=== PATIENT | male | born 1945 | race Caucasian/White ===

== ENCOUNTER 2018-11-02 10:05 | Outpatient (CLI) | payer MEDICARE, SELFPAY ==
[2018-11-02 10:32] LABS: Abs Immature Grans 0.03 k/cumm (0.0-0.09); Absolute Basophil Count 0.04 k/cumm (0.0-0.2); Absolute Eosinophil Count 0.16 k/cumm (0.0-0.7); Absolute Lymphocyte Count 1.71 k/cumm (1.2-3.4); Absolute Monocyte Count 0.75 k/cumm (0.11-0.7); Absolute Neutrophil Count 4.98 k/cumm (1.2-6.7); Basophils % 0.5; Eosinophils % 2.1; HCT 40.8 % (40.0-50.0); HGB 13.3 g/dL (13.5-17.5); Immature Grans % 0.4; Lymphocytes % 22.3; Mean Corp. HGB Concentration 32.6 g/dL (32.0-36.0); Mean Corpuscular Volume 98.1 fL (80-95); Mean Platelet Volume 11.6 fL (8.0-11.0); Monocytes % 9.8; Neutrophils % 64.9; Platelet Count 208 x1000/uL (130-400); RBC 4.16 m/cumm (4.50-6.00); RBC Distribution Width 14.6 % (11.8-14.1); White Blood Cell Count 7.67 k/cumm (4.4-10.8)
[2018-11-02 10:37] LABS: Hemoglobin A1C 6.5 % (4.5-6.2)
[2018-11-02 10:40] LABS: ALT 21 U/L (16-63); AST 16 U/L (15-37); Albumin 2.9 g/dL (3.4-5.0); Alkaline Phosphatase 58 U/L (46-116); BUN 24 mg/dL (7-18); Bilirubin, Total 0.3 mg/dL (0.2-1.0); CREATININE 0.95 mg/dL (0.70-1.30); Calcium 8.5 mg/dL (8.5-10.1); Chloride 105 mmol/L (98-107); Glucose 98 mg/dL (70-100); Potassium 4.4 mmol/L (3.5-5.1); Sodium 142 mmol/L (136-145); Total Protein 6.7 g/dL (6.4-8.2)
== END 2018-11-02 10:25 ==
PROVIDERS: PCP Family Medicine; Visit Provider Nurse Practitioner Adult Health
DX: E11.621 Type 2 diabetes mellitus with foot ulcer (principal); E78.5 Hyperlipidemia, unspecified; F33.1 Major depressive disorder, recurrent, moderate; F41.9 Anxiety disorder, unspecified; I10 Essential (primary) hypertension
CPT/HCPCS: 36415; 80053; 83036; 85025

== ENCOUNTER 2018-11-20 15:18 | Emergency (ER) | payer MEDICARE, SELFPAY ==
[2018-11-20] VITALS (52 sets, daily range): BP systolic 91–126; BP diastolic 29–51; PULSE 60–101; RESP 16–39; TEMP 37.7; O2SAT 68–100
--- NOTE | 2018-11-20 15:32 | DI.RAD_ITS ---
EXAM: XR CHEST 2V PA LATERAL INDICATION: cough, r/o pneumonia. COMPARISON: PORTABLE CHEST ONE VIEW from 10/01/2015 TECHNIQUE: 2D digital imaging was performed. FINDINGS: AP and lateral views of the chest were obtained. Heart size and pulmonary vasculature are stable and within normal limits. Chronic interstitial changes are present in the lungs. No focal consolidatin g infiltrate is present. No effusions or pneumothoraces are identified. The lateral spine is diffic ult to visualize due to patient positioning. Old left healed rib fractures are present. IMPRESSION: No acute pulmonary process.
--- NOTE | 2018-11-20 15:33 | ED.GENADUL_ITS ---
Discharge Plan Disposition Patient Disposition: HOME Condition: Stable Discharge Details Chief Complaint: RespSymp Clinical Impression: Infection of toe, Cough, Hypoxia Primary Care Provider: Eileen Webster ED Provider: Vanna Pineda Home Meds and New Rx's Prescriptions: New doxycycline hyclate 100 mg tablet 100 mg PO BID 7 Days Qty: 14 RF: 0 Continued clopidogrel [Plavix] 75 MG tablet 75 mg PO DAILY RF: 0 dicyclomine 10 MG capsule 20 mg PO QID RF: 0 levetiracetam [Keppra] 500 MG tablet 500 mg PO BID RF: 0 gabapentin 400 MG capsule 800 mg PO DAILY PRNRF: 0 finasteride 5 MG tablet 5 mg PO DAILY RF: 0 nicotine (polacrilex) [Nicorette] 4 MG gum 2 mg PO QID RF: 0 metformin [Glucophage] 1,000 MG tablet 500 mg PO BID RF: 0 metoprolol tartrate 25 MG tablet 25 mg PO BID RF: 0 sennosides [senna] 8.6 MG tablet 1 tab PO BID RF: 0 tamsulosin 0.4 MG capsule 0.8 mg PO .QHS RF: 0 prazosin 2 MG capsule 2 mg PO .QHS RF: 0 acetaminophen 325 mg Tablet 650 mg PO Q4H PRN PRNRF: 0 atorvastatin 10 mg Tablet 10 mg PO DAILY RF: 0 meloxicam 7.5 mg Tablet 7.5 mg PO DAILY RF: 0 gabapentin 800 mg Tablet 1,600 mg PO QHS RF: 0 gabapentin 800 mg Tablet 800 mg PO BID RF: 0 allopurinol 300 mg Tablet 300 mg PO DAILY RF: 0 polyethylene glycol 3350 [Miralax] 17 gram/dose Powder 17 g PO DAILY RF: 0 amoxicillin-pot clavulanate 500-125 mg Tablet 1 tab PO BID RF: 0 Discharge Instructions Instructions: Cellulitis (ED), Hypoxia (ED), Acute Cough (ED) Additional Instructions: Take the Augmentin until finished. Take the doxycycline until finished. Continue nasal cannula oxygen at 2 L to keep oxygen saturation above 92%. Continue to use your albuterol neb treatments as needed and directed for shortness of breath, cough or wheezing. Follow-up with your primary care doctor at [facility] on Thursday for reevaluation. Return to the emergency department with any worsening or new concerning symptoms. Discharge Data Discharge Physician: Vanna Pineda Medical Decision Making 73-year-old male with history of anxiety, depression, CVA, diabetes, gout, hypertension, hyperlipidemia who presents with cough and shortness of breath since last night after he believes that he aspirated his Lasix pill and then regurgitated and was able to swallow it appropriately. Denies any known fever. States he has been able to eat and drink normally. O2 sat 80s per [facility]. High 80s here on arrival on room air, increased to mid 90s on 2 L O2. He is afebrile although low-grade temp of 99.8. Normal heart rate, no signs of respiratory distress. Diminished breath sounds at bases bilaterally. He is at the rehab due to a recent stay at [facility] for bilateral toe infections wh ich appears to be healing well and treated with Augmentin. Differential diagnosis includes aspiration pneumonia, pneumonia, ACS, acute CHF or COPD. EKG notes a rate of 98, sinus with T wave inversion in 1, aVL, V2 which appears new compared to previous EKG. There is no acute ST elevation or depression. Will give DuoNeb, check screening labs, chest x-ray and reassess. Labs reviewed and note a white blood cell count of 21, lactate of 3, troponin negative. Magnesium 1.4. BNP 680. Chest x-ray negative. Influenza negative. Patient denies any acute complaints and feels good to go back to [facility]. His elevated white blood cell count and lactate could be due to his chronic toe infection or a possible developing aspiration pneumonia. Patient is already on Augmentin as well as albuterol nebs as needed. We will add doxycycline. 1 dose of doxycycline given here as well as prescription. An order sheet was sent to [facility] for continued nasal cannula oxygen to keep O2 sats above 92%, albuterol nebs as needed and to finish both antibiotics. His blood pressure was mildly hypotensive at times, BP 124/46 before discharge. Case discussed with Shayna nursing supervisor sample over rehab who was notified of plan for home and to repeat CBC and BMP tomorrow. Advised to return with any worsening or new concerning symptoms. Medical Records Medical records reviewed: Yes I reviewed the patient's medical records. Imaging Data Radiologic Study: Radiologist's impression: XR Chest, 2 Views Exam date and time: 11/20/2018 4:25 PM Clinical history: 73 years old, male; Other: Cough, R/O pneumonia TECHNIQUE: Imaging protocol: XR of the chest Views: 2 views. COMPARISON: CR PORTABLE CHEST ONE VIEW 10/01/2015 2:01 PM FINDINGS: Lungs: Unremarkable. No consolidation. Pleural space: Unremarkable. No pleural effusion. No pneumothorax. Heart/Mediastinum: Unremarkable. No cardiomegaly. Vasculature: Atherosclerosis. Bones/joints: Degenerative changes in the spine. IMPRESSION: Atherosclerosis. Degenerative changes in the spine. Lab Data Lab results reviewed: Yes I reviewed the patient's lab results. Labs: Laboratory Tests Range/Units 11/20/18 11/20/18 11/20/18 15:40 15:40 15:40 WBC (4.4-10.8) k/cumm 21.00 H RBC (4.50-6.00) m/cumm 4.14 L Hgb (13.5-17.5) g/dL 13.4 L Hct (40.0-50.0) % 40.2 MCV (80-95) fL 97.1 H MCH (27.0-33.0) pg 32.4 MCHC (32.0-36.0) g/dL 33.3 RDW (11.8-14.1) % 14.4 H Plt Count (130-400) x1000/uL 217 MPV (8.0-11.0) fL 11.1 H Immature Gran % 0.3 Neutrophils % 85.6 Lymphocytes % 7.1 Monocytes % 6.8 Eosinophils % 0.1 Basophils % 0.1 Absolute Neutrophils (1.2-6.7) k/cumm 17.98 H Absolute Lymphocytes (1.2-3.4) k/cumm 1.49 Absolute Monocytes (0.11-0.7) k/cumm 1.43 H Absolute Eosinophils (0.0-0.7) k/cumm 0.02 Absolute Basophils (0.0-0.2) k/cumm 0.02 Sodium (136-145) mmol/L 143 Potassium (3.5-5.1) mmol/L 4.0 Chloride (98-107) mmol/L 104 Carbon Dioxide (21.0-32.0) mmol/L 29.8 Anion Gap (3-11) mmol/L 9.2 BUN (7-18) mg/dL 22 H Creatinine (0.70-1.30) mg/dL 1.07 Estimated GFR/1.73 m2 (mL/min/1.73m2) >= 60.00 Glucose (70-100) mg/dL 175 H Lactate (0.6-1.4) mmol/L 3.0 H* Calcium (8.5-10.1) mg/dL 8.4 L Magnesium (1.8-2.4) mg/dL 1.4 L Total Bilirubin (0.2-1.0) mg/dL 0.4 AST (15-37) U/L 14 L ALT (16-63) U/L 26 Alkaline Phosphatase (46-116) U/L 70 Troponin I (0.00-0.06) ng/mL < 0.05 NT-Pro-B Natriuret Pep ( - 299) pg/mL Total Protein (6.4-8.2) g/dL 7.3 Albumin (3.4-5.0) g/dL 2.8 L Range/Units 11/20/18 15:40 WBC (4.4-10.8) k/cumm RBC (4.50-6.00) m/cumm Hgb (13.5-17.5) g/dL Hct (40.0-50.0) % MCV (80-95) fL MCH (27.0-33.0) pg MCHC (32.0-36.0) g/dL RDW (11.8-14.1) % Plt Count (130-400) x1000/uL MPV (8.0-11.0) fL Immature Gran % Neutrophils % Lymphocytes % Monocytes % Eosinophils % Basophils % Absolute Neutrophils (1.2-6.7) k/cumm Absolute Lymphocytes (1.2-3.4) k/cumm Absolute Monocytes (0.11-0.7) k/cumm Absolute Eosinophils (0.0-0.7) k/cumm Absolute Basophils (0.0-0.2) k/cumm Sodium (136-145) mmol/L Potassium (3.5-5.1) mmol/L Chloride (98-107) mmol/L Carbon Dioxide (21.0-32.0) mmol/L Anion Gap (3-11) mmol/L BUN (7-18) mg/dL Creatinine (0.70-1.30) mg/dL Estimated GFR/1.73 m2 (mL/min/1.73m2) Glucose (70-100) mg/dL Lactate (0.6-1.4) mmol/L Calcium (8.5-10.1) mg/dL Magnesium (1.8-2.4) mg/dL Total Bilirubin (0.2-1.0) mg/dL AST (15-37) U/L ALT (16-63) U/L Alkaline Phosphatase (46-116) U/L Troponin I (0.00-0.06) ng/mL NT-Pro-B Natriuret Pep ( - 299) pg/mL 680 H Total Protein (6.4-8.2) g/dL Albumin (3.4-5.0) g/dL ECG Data Attestation: I personally reviewed and interpreted this ECG (s) as follows: Interpretation: Rate of 98, sinus, T wave inversion in 1, aVL, V2. No acute ST elevation or depression. NV 106. QTc 472. QRS 106. HPI General Mode of arrival: EMS . Date/Time Provider Initiated Documentation: 11/20/18 15:31 . Limitations to Documentation: no limitations . Information obtained by: patient . HPI Narrative: Patient is a 73-year-old male with a history of anxiety, depression, diabetes, hypertension, hyperlipidemia, CVA who [facility] for cough and shortness of breath since last night. Patient states I think my lungs are filled with fluid . Patient states his symptoms started after he took a large cup of his medication last night and feels that he aspirated his Lasix pill. He states he was able to regurgitate this pill back up and then swallowed appropriately. He states he has been eating and drinking normally. He denies any fever, chest pain, abdominal pain. Patient is at the rehab for the past week after a recent admission to [facility] for toe infections and debridement for which she is taking Augmentin. Related Data Home Medications Medication Instructions Recorded Confirmed clopidogrel [Plavix] 75 mg PO DAILY 10/01/15 11/20/18 dicyclomine 20 mg PO QID 10/01/15 11/20/18 finasteride 5 mg PO DAILY 10/01/15 11/20/18 gabapentin 800 mg PO DAILY PRN 10/01/15 11/20/18 levetiracetam [Keppra] 500 mg PO BID 10/01/15 11/20/18 metformin [Glucophage] 500 mg PO BID 10/01/15 11/20/18 metoprolol tartrate 25 mg PO BID 10/01/15 11/20/18 nicotine (polacrilex) [Nicorette] 2 mg PO QID 10/01/15 11/20/18 prazosin 2 mg PO .QHS 10/01/15 11/20/18 sennosides [senna] 1 tab PO BID 10/01/15 11/20/18 tamsulosin 0.8 mg PO .QHS 10/01/15 11/20/18 acetaminophen 650 mg PO Q4H PRN PRN 11/20/18 11/20/18 allopurinol 300 mg PO DAILY 11/20/18 11/20/18 amoxicillin-pot clavulanate 1 tab PO BID 11/20/18 11/20/18 atorvastatin 10 mg PO DAILY 11/20/18 11/20/18 doxycycline hyclate 100 mg PO BID 7 Days #14 tab 11/20/18 gabapentin 1,600 mg PO QHS 11/20/18 11/20/18 gabapentin 800 mg PO BID 11/20/18 11/20/18 meloxicam 7.5 mg PO DAILY 11/20/18 11/20/18 polyethylene glycol 3350 [Miralax] 17 g PO DAILY 11/20/18 11/20/18 Previous Rx's Medication Instructions Recorded doxycycline hyclate 100 mg PO BID 7 Days #14 tab 11/20/18 Allergies Allergy/AdvReac Type Severity Reaction Status Date / Time No Known Allergies Allergy Unverified 11/20/18 15:22 General Stated Complaint: RespSymp KM: 3 Review of Systems Review of Systems ROS Unobtainable: All systems reviewed & are unremarkable except as noted in HPI and below Constitutional Constitutional: Reports as per HPI, Denies chills and Denies fever(s) Eyes Eyes: Denies blurry vision ENT Ears, Nose, Mouth, and Throat: Denies dizziness, Denies sore throat and Denies throat swelling Cardiovascular Cardiovascular: Denies chest pain and Reports dyspnea Respiratory Respiratory: Reports cough and Reports dyspnea Gastrointestinal Gastrointestinal: Denies abdominal pain, Denies diarrhea and Denies vomiting Genitourinary Genitourinary: Denies hematuria and Denies dysuria Musculoskeletal Musculoskeletal: Denies back pain and Denies numbness Integumentary/Breasts Skin/Breast: Denies lesions and Denies rash Neurologic Neurologic: Denies dizziness, Denies focal weakness and Denies numbness Allergic/Immunologic Allergic/Immunologic: Denies throat swelling ON LICENSE OF [facility] Medical History Alcohol abuse (Chronic) Anxiety (Chronic) CVA (cerebral vascular accident) (Chronic) Depression (Chronic) Diabetes (Chronic) Gout (Chronic) HTN (hypertension) (Chronic) Hx of hyperlipidemia (Acute) Seizure (Acute) Surgical History History of foot surgery (Acute) Social History Smoking/Tobacco Use Status: Former Tobacco Use Alcohol Intake: former Substance use type: does not use Do you feel safe at home: Yes Do you feel safe in your relationship?: Yes Exam Const General: cooperative, healthy appearing and no acute distress HENMT Head: normal to inspection Face and sinus: normal facial exam Mouth: mucous membranes dry Eyes General: appearance normal, both eyes and all related structures EOM: EOM intact bilaterally Neck Neck: normal visual inspection and No submandibular swelling Lymphatic: no lymphadenopathy noted Chest Chest: normal inspection of the chest and no tenderness Resp Effort & Inspection: normal respiratory effort and able to speak in complete sentences Auscultation: diminished lung sounds bilaterally in the lower lung suarez Cardio Rate: regular rate Rhythm: regular rhythm GI Inspection: normal to inspection Palpation: soft, not firm, not rigid and nontender Auscultation: normal bowel sounds Skin General skin exam: no rashes or lesions noted Neuro General: alert, awake and oriented x3 Cognition: normal cognition Speech: speech normal Motor: muscle tone normal throughout Sensory Exam: no sensory deficits noted Extrem General: full ROM, normal capillary refill and no edema Other: Bilateral great toes with ulcerations at tips. Left great toe with healing ulceration. Right great toe with healing pustule with orange colored topical medication in place. Psych Appearance: grossly normal Mental Status: mental status grossly normal Speech and Movement: speech and movement normal Affect: normal affect Course Vital Signs Vital signs: Vital Signs Temperature 99.8 F H 11/20/18 15:16 Pulse 95 H 11/20/18 15:16 Respiratory Rate 24 11/20/18 15:16 Blood Pressure 124/46 L 11/20/18 15:16 Pulse Oximetry 97 11/20/18 15:16 Temperature 99.8 F H 11/20/18 15:16 Temperature Source Oral 11/20/18 15:16 Pulse 95 H 11/20/18 15:16 Respiratory Rate 11/20/18 15:16 Blood Pressure 124/46 L 11/20/18 15:16 Blood Pressure Position Sitting 11/20/18 15:16 Pulse Oximetry 97 11/20/18 15:16 Oxygen Delivery Method Aerosol Mask 11/20/18 15:16 Pain Level 8 11/20/18 15:16 Comment 11/20/18 15:16
[2018-11-20 15:48] LABS: Abs Immature Grans 0.07 k/cumm (0.0-0.09); Absolute Monocyte Count 1.43 k/cumm (0.11-0.7); Basophils % 0.1; Eosinophils % 0.1; HCT 40.2 % (40.0-50.0); HGB 13.4 g/dL (13.5-17.5); Immature Grans % 0.3; Lymphocytes % 7.1; Mean Corp. HGB Concentration 33.3 g/dL (32.0-36.0); Mean Corpuscular Hemoglobin 32.4 pg (27.0-33.0); Mean Corpuscular Volume 97.1 fL (80-95); Mean Platelet Volume 11.1 fL (8.0-11.0); Monocytes % 6.8; Neutrophils % 85.6; Platelet Count 217 x1000/uL (130-400); RBC 4.14 m/cumm (4.50-6.00); RBC Distribution Width 14.4 % (11.8-14.1)
[2018-11-20 15:49] LABS: Absolute Basophil Count 0.02 k/cumm (0.0-0.2); Absolute Eosinophil Count 0.02 k/cumm (0.0-0.7); Absolute Lymphocyte Count 1.49 k/cumm (1.2-3.4); Absolute Neutrophil Count 17.98 k/cumm (1.2-6.7)
[2018-11-20 16:11] LABS: ALT 26 U/L (16-63); AST 14 U/L (15-37); Albumin 2.8 g/dL (3.4-5.0); Alkaline Phosphatase 70 U/L (46-116); Anion Gap 9.2 mmol/L (3-11); BUN 22 mg/dL (7-18); Bilirubin, Total 0.4 mg/dL (0.2-1.0); CO2 29.8 mmol/L (21.0-32.0); CREATININE 1.07 mg/dL (0.70-1.30); Calcium 8.4 mg/dL (8.5-10.1); Chloride 104 mmol/L (98-107); Glucose 175 mg/dL (70-100); Magnesium 1.4 mg/dL (1.8-2.4); Sodium 143 mmol/L (136-145); Total Protein 7.3 g/dL (6.4-8.2); Troponin I < 0.05 ng/mL (0.00-0.06)
[2018-11-20] MEDS: Albuterol 2.5 MG/3 ML INH SOLN VIAL UPD (16:44)
[2018-11-20] MEDS: Normal Saline 500 ML IV (16:45)
[2018-11-20 16:46] LABS: NT-proBNP 680 pg/mL
--- NOTE | 2018-11-20 16:46 | DI.VRAD_ITS ---
PROCEDURE INFORMATION: Exam: XR Chest, 2 Views Exam date and time: 11/20/2018 4:25 PM Clinical history: 73 years old, male; Other: Cough, R/O pneumonia TECHNIQUE: Imaging protocol: XR of the chest Views: 2 views. COMPARISON: CR PORTABLE CHEST ONE VIEW 10/01/2015 2:01 PM FINDINGS: Lungs: Unremarkable. No consolidation. Pleural space: Unremarkable. No pleural effusion. No pneumothorax. Heart/Mediastinum: Unremarkable. No cardiomegaly. Vasculature: Atherosclerosis. Bones/joints: Degenerative changes in the spine. IMPRESSION: Atherosclerosis. Degenerative changes in the spine. Dictated and Authenticated by: Fatou Miranda MD. Ordering:STELLA Prabhakar MD
--- NOTE | 2018-11-20 16:58 | NUR.NOTE ---
iv fluids infusing pt on playground monitor Nursing Note:
[2018-11-20] MEDS: MAGNESIUM SULFATE 1 GM/100 ML BAG IVPB (17:46)
[2018-11-20] MEDS: Doxycycline Hyclate 100 MG CAP PO (19:45)
== END 2018-11-20 20:48 | disposition home or self-care (01) ==
PROVIDERS: Emergency Provider Physician Assistant; PCP Family Medicine
DX: R09.02 Hypoxemia (principal); R05 Cough; L03.031 Cellulitis of right toe; L03.032 Cellulitis of left toe; E11.9 Type 2 diabetes mellitus without complications; I10 Essential (primary) hypertension; Z79.84 Long term (current) use of oral hypoglycemic drugs
CPT/HCPCS: 36415; 80053; 87040; 87449; 93005; 96361; 96365; 96366; 99285; 71046; 83605; 83735; 83880; 84484; 85025; 93010; J3475; J7613

== ENCOUNTER 2018-11-21 10:50 | Outpatient (REF) | payer MEDICARE, SELFPAY ==
[2018-11-21 11:09] LABS: Abs Immature Grans 0.05 k/cumm (0.0-0.09); Absolute Basophil Count 0.03 k/cumm (0.0-0.2); Absolute Eosinophil Count 0.24 k/cumm (0.0-0.7); Absolute Lymphocyte Count 1.45 k/cumm (1.2-3.4); Basophils % 0.2; Eosinophils % 1.8; HCT 37.2 % (40.0-50.0); HGB 12.3 g/dL (13.5-17.5); Immature Grans % 0.4; Lymphocytes % 10.7; Mean Corp. HGB Concentration 33.1 g/dL (32.0-36.0); Mean Corpuscular Hemoglobin 32.7 pg (27.0-33.0); Mean Corpuscular Volume 98.9 fL (80-95); Mean Platelet Volume 10.6 fL (8.0-11.0); Monocytes % 9.2; Neutrophils % 77.7; Platelet Count 192 x1000/uL (130-400); RBC 3.76 m/cumm (4.50-6.00); RBC Distribution Width 14.7 % (11.8-14.1); White Blood Cell Count 13.54 k/cumm (4.4-10.8)
[2018-11-21 11:10] LABS: Absolute Monocyte Count 1.25 k/cumm (0.11-0.7); Absolute Neutrophil Count 10.52 k/cumm (1.2-6.7)
[2018-11-21 11:11] LABS: Anion Gap 5.6 mmol/L (3-11); BUN 17 mg/dL (7-18); CO2 29.4 mmol/L (21.0-32.0); CREATININE 0.88 mg/dL (0.70-1.30); Calcium 8.2 mg/dL (8.5-10.1); Chloride 107 mmol/L (98-107); Glucose 141 mg/dL (70-100); Potassium 4.2 mmol/L (3.5-5.1); Sodium 142 mmol/L (136-145)
== END 2018-11-21 11:10 ==
LOC: LBN 10:50
PROVIDERS: PCP Family Medicine; Visit Provider Family Medicine
DX: D72.9 Disorder of white blood cells, unspecified (principal); I10 Essential (primary) hypertension
CPT/HCPCS: 80048; 85025

== ENCOUNTER 2018-11-25 12:02 | Outpatient (REF) | payer MEDICARE, SELFPAY ==
[2018-11-25 12:21] LABS: Abs Immature Grans 0.02 k/cumm (0.0-0.09); Absolute Basophil Count 0.03 k/cumm (0.0-0.2); Absolute Eosinophil Count 0.16 k/cumm (0.0-0.7); Absolute Lymphocyte Count 1.53 k/cumm (1.2-3.4); Absolute Monocyte Count 0.58 k/cumm (0.11-0.7); Absolute Neutrophil Count 4.45 k/cumm (1.2-6.7); Basophils % 0.4; Eosinophils % 2.4; HGB 13.4 g/dL (13.5-17.5); Immature Grans % 0.3; Lymphocytes % 22.6; Mean Corp. HGB Concentration 32.7 g/dL (32.0-36.0); Mean Corpuscular Hemoglobin 32.1 pg (27.0-33.0); Mean Corpuscular Volume 98.1 fL (80-95); Mean Platelet Volume 11.3 fL (8.0-11.0); Monocytes % 8.6; Neutrophils % 65.7; Platelet Count 178 x1000/uL (130-400); RBC 4.18 m/cumm (4.50-6.00); RBC Distribution Width 14.5 % (11.8-14.1); White Blood Cell Count 6.77 k/cumm (4.4-10.8)
[2018-11-25 12:29] LABS: Anion Gap 7.9 mmol/L (3-11); BUN 22 mg/dL (7-18); CO2 30.1 mmol/L (21.0-32.0); CREATININE 0.79 mg/dL (0.70-1.30); Calcium 8.6 mg/dL (8.5-10.1); Chloride 105 mmol/L (98-107); Glucose 182 mg/dL (70-100); Potassium 4.1 mmol/L (3.5-5.1); Sodium 143 mmol/L (136-145)
== END 2018-11-25 12:22 ==
LOC: LBN 12:02
PROVIDERS: PCP Family Medicine; Visit Provider Nurse Practitioner Adult Health
DX: D64.9 Anemia, unspecified (principal); D72.9 Disorder of white blood cells, unspecified
CPT/HCPCS: 80048; 85025

== ENCOUNTER 2018-12-09 04:36 | Emergency (ER) | payer OTHER, MEDICARE, SELFPAY ==
[2018-12-09] VITALS (61 sets, daily range): BP systolic 86–135; BP diastolic 28–72; PULSE 71–114; RESP 18–33; TEMP 37.3–39.8; O2SAT 81–94
[2018-12-09] MEDS: Lidocaine 2% Jelly 6 ML SYR (04:58)
[2018-12-09] MEDS: Lactated Ringers 2,000 ML 1000 ML IV (05:07)
--- NOTE | 2018-12-09 05:11 | ED.GENADUL_ITS ---
Discharge Plan Disposition Patient Disposition: OTHER Condition: Stable Discharge Details Chief Complaint: Fever Clinical Impression: Sepsis Primary Care Provider: Eileen Webster ED Provider: Luis Bullard Home Meds and New Rx's Prescriptions: No Action clopidogrel [Plavix] 75 MG tablet 75 mg PO DAILY RF: 0 dicyclomine 10 MG capsule 20 mg PO QID RF: 0 levetiracetam [Keppra] 500 MG tablet 500 mg PO BID RF: 0 gabapentin 400 MG capsule 800 mg PO DAILY PRNRF: 0 finasteride 5 MG tablet 5 mg PO DAILY RF: 0 nicotine (polacrilex) [Nicorette] 4 MG gum 2 mg PO QID RF: 0 metformin [Glucophage] 1,000 MG tablet 500 mg PO BID RF: 0 metoprolol tartrate 25 MG tablet 25 mg PO BID RF: 0 sennosides [senna] 8.6 MG tablet 1 tab PO BID RF: 0 tamsulosin 0.4 MG capsule 0.8 mg PO .QHS RF: 0 prazosin 2 MG capsule 2 mg PO .QHS RF: 0 acetaminophen 325 mg Tablet 650 mg PO Q4H PRN PRNRF: 0 atorvastatin 10 mg Tablet 10 mg PO DAILY RF: 0 meloxicam 7.5 mg Tablet 7.5 mg PO DAILY RF: 0 gabapentin 800 mg Tablet 1,600 mg PO QHS RF: 0 gabapentin 800 mg Tablet 800 mg PO BID RF: 0 allopurinol 300 mg Tablet 300 mg PO DAILY RF: 0 polyethylene glycol 3350 [Miralax] 17 gram/dose Powder 17 g PO DAILY RF: 0 amoxicillin-pot clavulanate 500-125 mg Tablet 1 tab PO BID RF: 0 Discharge Data Discharge Date/Time-TO BE ENTERED AT DEPARTURE: 12/09/18 11:30 Medical Decision Making <Lucio Alcaraz MD - Last Filed: 12/09/18 19:59> Patient presenting with fever, tachycardia, hypotension in the setting of 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 He received Tylenol prior to transfer. He has a cough and some shortness of breath but has history of COPD. States his breathing is better on the oxygen. His abdomen is benign other than distended bladder. Toes did not look swollen or red. No obvious cellulitis. No ulcerations. No complaint of headache and has normal mental status. IV established and fluid resuscitation started. Laboratory studies including lactic acid and blood cultures were ordered. Temperature-sensing Lopez catheter placed to monitor both temperature and urine output. Flu swab and chest x-ray ordered. 07:00 - Heart rate has come down and blood pressure has gone up with 2 L of fluid. We will continue LR at 150 an hour. Laboratory studies show his lactic acid to be 3.6. His white count is normal. Renal function and liver function normal. Electrolytes okay other than low magnesium. Troponin negative. Urine negative. Chest x-ray per preliminary radiology read without obvious consolidation. Flu swab negative. At this point I do not have a definitive source for his fever and hypotension. I find it hard to believe that it is related to his chronic toe infections. He has dry gangrene at the tips but he does not have significant swelling, erythema, pain. No definite consolidation on x-ray but definitely has junky cough and saturations are little low. Will give DuoNeb. I am going to cover with vancomycin and Levaquin as he has been on Augmentin chronically. We will need to replete magnesium. Currently no beds here at this hospital. [facility] is a [facility] Medical Records Medical records reviewed: Yes I reviewed the patient's medical records. Lab Data Lab results reviewed: Yes I reviewed the patient's lab results. ECG Data Attestation: I personally reviewed and interpreted this ECG (s) as follows: Prior ECG tracings: available for review Interpretation: Sinus tachycardia at 107. Normal axis and intervals. Nonspecific ST changes in the lateral leads was a little depression but no significant difference compared to old. <Luis Bullard MD - Last Filed: 12/09/18 10:32> [facility] and we have no beds here, [facility] states [facility]. Spoke with Salina Gomez at [facility] who requested repeat lactate. the 2nd lactate was drawn off line magnesium was running and was over 7 and I felt this was likely erroneous so I had lab do a blood draw within 10 minutes of this and it was less than 2. Spoke again with Salina Gomez who accepts in transfer. Pt reiterates dnr/dni and would not want any procedures such as central lines nor would he want pressors at the present time HPI <Lucio Alcaraz MD - Last Filed: 12/09/18 19:59> General Mode of arrival: EMS . Date/Time Provider Initiated Documentation: 12/09/18 05:06 . Limitations to Documentation: no limitations . Information obtained by: patient, EMS, RN notes reviewed and old records reviewed . HPI Narrative: [facility] evaluation of fever and chills. Patient is on Augmentin for toe ulcer. He does have increased pain there. He developed increasing cough, shortness of breath and fever. He denies chest pain or abdominal pain. He has had some nausea and vomiting overnight. He denies dysuria or hematuria. He denies headache, runny nose, sore throat. 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 Related Data Home Medications Medication Instructions Recorded Confirmed clopidogrel [Plavix] 75 mg PO DAILY 10/01/15 12/09/18 dicyclomine 20 mg PO QID 10/01/15 12/09/18 finasteride 5 mg PO DAILY 10/01/15 12/09/18 gabapentin 800 mg PO DAILY PRN 10/01/15 12/09/18 levetiracetam [Keppra] 500 mg PO BID 10/01/15 12/09/18 metformin [Glucophage] 500 mg PO BID 10/01/15 12/09/18 metoprolol tartrate 25 mg PO BID 10/01/15 12/09/18 nicotine (polacrilex) [Nicorette] 2 mg PO QID 10/01/15 12/09/18 prazosin 2 mg PO .QHS 10/01/15 12/09/18 sennosides [senna] 1 tab PO BID 10/01/15 12/09/18 tamsulosin 0.8 mg PO .QHS 10/01/15 12/09/18 acetaminophen 650 mg PO Q4H PRN PRN 11/20/18 12/09/18 allopurinol 300 mg PO DAILY 11/20/18 12/09/18 amoxicillin-pot clavulanate 1 tab PO BID 11/20/18 12/09/18 atorvastatin 10 mg PO DAILY 11/20/18 12/09/18 gabapentin 1,600 mg PO QHS 11/20/18 12/09/18 gabapentin 800 mg PO BID 11/20/18 12/09/18 meloxicam 7.5 mg PO DAILY 11/20/18 12/09/18 polyethylene glycol 3350 [Miralax] 17 g PO DAILY 11/20/18 12/09/18 Allergies Allergy/AdvReac Type Severity Reaction Status Date / Time No Known Allergies Allergy Unverified 12/09/18 05:25 General Stated Complaint: Fever KM: 3 Review of Systems <Lucio Alcaraz MD - Last Filed: 12/09/18 19:59> Review of Systems Narrative: 12/06 Review of Systems completed and is negative except as stated above in HPI (Systems reviewed: Const, Eyes, ENT, Resp, CV, GI, , MSK, Skin, Neuro) PFSH <Lucio Alcaraz MD - Last Filed: 12/09/18 19:59> Medical History Anxiety (Chronic) COPD (chronic obstructive pulmonary disease) (Chronic) CVA (cerebral vascular accident) (Chronic) Depression (Chronic) Diabetes (Chronic) Gout (Chronic) HTN (hypertension) (Chronic) Seizure (Chronic) Surgical History S/P carotid endarterectomy (Inactive) S/P hernia repair (Inactive) Social History Smoking/Tobacco Use Status: Former Tobacco Use Alcohol Intake: former Substance use type: does not use Do you feel safe at home: Yes Do you feel safe in your relationship?: Yes Exam <Lucio Alcaraz MD - Last Filed: 12/09/18 19:59> Narrative Exam Narrative: Vitals: Febrile and tachycardic as well as mildly hypotensive. Saturations low 90s on 4 L. Const: Elderly male with rigors. HEENT: NC/AT. Normal facial exam. Eyes: Normal conjunctiva and sclera. Neck: Supple. Trachea midline. Lungs: Normal respiratory effort but a little tachypneic. Lungs with some rhonchi right lateral. Cor: RRR without murmur/gallop. Tachy. Good radial pulses. GI: Soft. NT/ND. No guarding or rebound. Distended bladder. Neuro: A+O x 3. CN grossly in tact. Old left hemiparesis. Ext: No C/C/E. Dry gangrene tip of big toes right larger than left. Skin: No evidence of cellulitis seen. No ulcerations. Course <Lucio Alcaraz MD - Last Filed: 12/09/18 19:59> Vital Signs Vital signs: Vital Signs Temperature 102.4 F H 12/09/18 04:44 Pulse 110 H 12/09/18 04:44 Respiratory Rate 20 12/09/18 04:44 Blood Pressure 86/59 L 12/09/18 04:44 Pulse Oximetry 92 L 12/09/18 04:44 Temperature 102.4 F H 12/09/18 04:44 Temperature Source Skin 12/09/18 04:44 Pulse 110 H 12/09/18 04:44 Respiratory Rate 20 12/09/18 04:44 Blood Pressure 86/59 L 12/09/18 04:44 Blood Pressure Position Supine 12/09/18 04:44 Pulse Oximetry 92 L 12/09/18 04:44 Oxygen Delivery Method Venti Mask 12/09/18 04:44 Oxygen Flow Rate 10 12/09/18 04:44 Pain Level 9 12/09/18 04:44 Comment 12/09/18 04:44 Lab/Test Results Lab/Test Results: 12/09/18 05:07 Blood Blood Culture - Pending 12/09/18 05:07 Blood Blood Culture - Pending Sign Out <Lucio Alcaraz MD - Last Filed: 12/09/18 19:59> Sign Out Data: Sign Out Comment: Fever/sepsis with no definite source although quite possible pulmonary. No beds here. Stable at this time. [facility] Signed out to Dr. Bullard. Last updated by Lucio Alcaraz MD at 12/09/18 08:02
[2018-12-09 05:22] LABS: Abs Immature Grans 0.03 k/cumm (0.0-0.09); Absolute Basophil Count 0.02 k/cumm (0.0-0.2); Absolute Eosinophil Count 0.11 k/cumm (0.0-0.7); Absolute Lymphocyte Count 1.06 k/cumm (1.2-3.4); Absolute Monocyte Count 0.56 k/cumm (0.11-0.7); Absolute Neutrophil Count 7.45 k/cumm (1.2-6.7); Basophils % 0.2; Eosinophils % 1.2; HCT 39.8 % (40.0-50.0); Immature Grans % 0.3; Lymphocytes % 11.5; Mean Corp. HGB Concentration 32.7 g/dL (32.0-36.0); Mean Corpuscular Hemoglobin 32.1 pg (27.0-33.0); Mean Corpuscular Volume 98.3 fL (80-95); Mean Platelet Volume 11.6 fL (8.0-11.0); Monocytes % 6.1; Neutrophils % 80.7; Platelet Count 163 x1000/uL (130-400); RBC 4.05 m/cumm (4.50-6.00); RBC Distribution Width 14.3 % (11.8-14.1); White Blood Cell Count 9.23 k/cumm (4.4-10.8)
[2018-12-09] MEDS: Ketorolac 15 MG/ML VIAL IVP (05:25)
[2018-12-09 05:31] LABS: Lactate 3.6 mmol/L (0.6-1.4)
[2018-12-09 05:47] LABS: ALT 19 U/L (16-63); AST 23 U/L (15-37); Albumin 3.1 g/dL (3.4-5.0); Alkaline Phosphatase 65 U/L (46-116); Anion Gap 7.1 mmol/L (3-11); BUN 20 mg/dL (7-18); Bilirubin, Total 0.3 mg/dL (0.2-1.0); CO2 29.9 mmol/L (21.0-32.0); CREATININE 0.97 mg/dL (0.70-1.30); Chloride 104 mmol/L (98-107); Glucose 160 mg/dL (70-100); Magnesium 1.2 mg/dL (1.8-2.4); Potassium 4.1 mmol/L (3.5-5.1); Sodium 141 mmol/L (136-145); Total Protein 7.5 g/dL (6.4-8.2)
[2018-12-09 06:08] LABS: Troponin I < 0.05 ng/mL (0.00-0.06)
--- NOTE | 2018-12-09 06:14 | DI.RAD_ITS ---
EXAM: XR PORTABLE CHEST AP INDICATION: fever; cough. COMPARISON: XR CHEST 2V PA LATERAL from 11/20/2018 TECHNIQUE: 2D digital imaging was performed. FINDINGS: The heart size is normal. Leads overlie the chest. The lungs are not well inflated. There are unde rlying emphysematous and fibrotic changes. There are old left rib fractures. No focal infiltrate, e ffusion or pulmonary edema is seen. IMPRESSION: Poor pulmonary inflation. No acute abnormality.
--- NOTE | 2018-12-09 06:19 | DI.VRAD_ITS ---
PROCEDURE INFORMATION: Exam: XR Chest, 1 View Exam date and time: 12/09/2018 6:13 AM Clinical history: 73 years old, male; Cough and fever TECHNIQUE: Imaging protocol: XR of the chest Views: 1 view. COMPARISON: CR XR CHEST 2V PA LATERAL 11/20/2018 4:12 PM FINDINGS: Lungs: Unremarkable. No consolidation. Pleural space: Unremarkable. No evidence of pneumothorax. Heart/Mediastinum: Unremarkable. Heart size within normal limits for technique. Bones/joints: Old rib fracture deformities.. IMPRESSION: No acute findings. Dictated and Authenticated by: Meir Castañeda MD. Ordering:VICTOR HUGO Valdes MD
[2018-12-09 06:26] LABS: Bilirubin Negative (Negative); Blood Small (Negative); Clarity Clear (Clear); Glucose Negative (Negative); Ketones Negative (Negative); Leukocyte Esterase Negative (Negative); Nitrite Negative (Negative); Urobilinogen 0.2 EU/dL (Up TO 0.2); pH 5.5 (5-8)
[2018-12-09 06:39] LABS: Bacteria Rare HPF (Negative); Casts Negative LPF (Negative); Crystals Negative HPF (Negative); Epithelial Cells Few HPF (Negative); Mucus Trace (Negative); WBC 0-2 HPF (0-5)
[2018-12-09 06:40] LABS: C & S Indicated? No
[2018-12-09] MEDS: Albuterol/Ipratropium 3 ML UPD VIAL UPD (06:46)
[2018-12-09] MEDS: Lactated Ringers 1,000 ML 150 ML IV (06:46)
[2018-12-09] MEDS: levoFLOXacin 750 MG/150 ML BAG 100 MG IVPB (06:55)
[2018-12-09] MEDS: MAGNESIUM SULFATE 2 GM/50 ML BAG IVPB (07:24)
[2018-12-09] MEDS: VANCOMYCIN 1,500 MG in Normal Saline 250 ML 166.6666 MG IVPB (08:31)
[2018-12-09 09:20] LABS: Lactate 7.7 mmol/L (0.6-1.4)
[2018-12-09 09:42] LABS: Lactate 1.9 mmol/L (0.6-1.4)
== END 2018-12-09 11:30 | disposition other institution (70) ==
PROVIDERS: Emergency Medicine; Emergency Provider Emergency Medicine; PCP Family Medicine
DX: A41.9 Sepsis, unspecified organism (principal); R50.9 Fever, unspecified; R00.0 Tachycardia, unspecified; I95.9 Hypotension, unspecified; I96 Gangrene, not elsewhere classified; E11.9 Type 2 diabetes mellitus without complications; J44.9 Chronic obstructive pulmonary disease, unspecified; I10 Essential (primary) hypertension
CPT/HCPCS: 36410; 36415; 51702; 80053; 87040; 87449; 93005; 94640; 96361; 96365; 96366; 96367; 96368; 96375; 99285; 71045; 81003; 81015; 83605; 83735; 84484; 85025; 93010; J1885; J1956; J7620

== ENCOUNTER 2018-12-21 10:06 | Outpatient (CLI) | payer MEDICARE, SELFPAY ==
[2018-12-21 11:09] LABS: Abs Immature Grans 0.05 k/cumm (0.0-0.09); Absolute Basophil Count 0.05 k/cumm (0.0-0.2); Absolute Eosinophil Count 0.25 k/cumm (0.0-0.7); Absolute Lymphocyte Count 1.61 k/cumm (1.2-3.4); Absolute Monocyte Count 0.53 k/cumm (0.11-0.7); Absolute Neutrophil Count 5.99 k/cumm (1.2-6.7); Basophils % 0.6; Eosinophils % 2.9; HCT 41.7 % (40.0-50.0); HGB 13.6 g/dL (13.5-17.5); Immature Grans % 0.6; Mean Corp. HGB Concentration 32.6 g/dL (32.0-36.0); Mean Corpuscular Hemoglobin 31.7 pg (27.0-33.0); Mean Corpuscular Volume 97.2 fL (80-95); Mean Platelet Volume 11.6 fL (8.0-11.0); Monocytes % 6.3; Neutrophils % 70.6; Platelet Count 216 x1000/uL (130-400); RBC 4.29 m/cumm (4.50-6.00); RBC Distribution Width 14.1 % (11.8-14.1); White Blood Cell Count 8.48 k/cumm (4.4-10.8)
[2018-12-21 11:22] LABS: Anion Gap 9.8 mmol/L (3-11); BUN 19 mg/dL (7-18); CO2 28.2 mmol/L (21.0-32.0); CREATININE 0.85 mg/dL (0.70-1.30); Calcium 8.6 mg/dL (8.5-10.1); Chloride 103 mmol/L (98-107); Glucose 183 mg/dL (70-100); Potassium 4.4 mmol/L (3.5-5.1); Sodium 141 mmol/L (136-145)
== END 2018-12-21 10:26 ==
PROVIDERS: PCP Family Medicine; Visit Provider Nurse Practitioner Adult Health
DX: A41.89 Other specified sepsis (principal)
CPT/HCPCS: 36415; 80048; 85025

== ENCOUNTER → 2019-01-17 08:22 | Outpatient (BNVA) | payer MEDICARE, SELFPAY | PROVIDERS: PCP Family Medicine; Referring Provider Family Medicine; Visit Provider Nurse Practitioner Gerontology | DX: R10.9 Unspecified abdominal pain (principal); N40.1 Benign prostatic hyperplasia with lower urinary tract symptoms; R33.8 Other retention of urine; N31.9 Neuromuscular dysfunction of bladder, unspecified; E11.9 Type 2 diabetes mellitus without complications; I10 Essential (primary) hypertension | CPT/HCPCS: 51702; 81003; 99204; 99215 ==

== ENCOUNTER → 2019-02-09 15:03 | Outpatient (BNVA) | payer MEDICARE, SELFPAY | PROVIDERS: PCP Family Medicine; Referring Provider Family Medicine; Visit Provider Nurse Practitioner Gerontology | DX: N40.1 Benign prostatic hyperplasia with lower urinary tract symptoms (principal); R33.8 Other retention of urine; Z46.6 Encounter for fitting and adjustment of urinary device | CPT/HCPCS: 99213 ==

== ENCOUNTER → 2019-02-10 09:38 | Outpatient (BNVA) | payer MEDICARE, SELFPAY | PROVIDERS: PCP Family Medicine; Referring Provider Family Medicine; Visit Provider Urology | DX: N31.9 Neuromuscular dysfunction of bladder, unspecified (principal); Z46.6 Encounter for fitting and adjustment of urinary device | CPT/HCPCS: 52000; 99212 ==

== ENCOUNTER 2019-02-25 17:12 | Outpatient (REF) | payer MEDICARE, SELFPAY ==
[2019-02-25 18:35] LABS: Abs Immature Grans 0.03 k/cumm (0.0-0.09); Absolute Basophil Count 0.03 k/cumm (0.0-0.2); Absolute Eosinophil Count 0.18 k/cumm (0.0-0.7); Absolute Lymphocyte Count 1.62 k/cumm (1.2-3.4); Absolute Monocyte Count 0.92 k/cumm (0.11-0.7); Absolute Neutrophil Count 6.32 k/cumm (1.2-6.7); Basophils % 0.3; HCT 40.6 % (40.0-50.0); HGB 13.3 g/dL (13.5-17.5); Immature Grans % 0.3 %; Lymphocytes % 17.8; Mean Corp. HGB Concentration 32.8 g/dL (32.0-36.0); Mean Corpuscular Hemoglobin 31.9 pg (27.0-33.0); Mean Corpuscular Volume 97.4 fL (80-95); Mean Platelet Volume 11.8 fL (8.0-11.0); Monocytes % 10.1; Neutrophils % 69.5; Platelet Count 199 x1000/uL (130-400); RBC 4.17 m/cumm (4.50-6.00); RBC Distribution Width 14.1 % (11.8-14.1)
[2019-02-25 18:39] LABS: Anion Gap 10.2 mmol/L (3-11); BUN 11 mg/dL (7-18); CO2 30.8 mmol/L (21.0-32.0); CREATININE 0.73 mg/dL (0.70-1.30); Calcium 8.6 mg/dL (8.5-10.1); Chloride 102 mmol/L (98-107); Glucose 122 mg/dL (74-106); Potassium 4.3 mmol/L (3.5-5.1); Sodium 143 mmol/L (136-145)
== END 2019-02-25 17:32 ==
LOC: LBN 17:12
PROVIDERS: PCP Family Medicine; Visit Provider Nurse Practitioner Adult Health
DX: I73.9 Peripheral vascular disease, unspecified (principal); N40.1 Benign prostatic hyperplasia with lower urinary tract symptoms; N41.1 Chronic prostatitis
CPT/HCPCS: 80048; 85025

== ENCOUNTER 2019-03-03 11:14 | Day surgery (SDC) | payer MEDICARE, MEDICAID, SELFPAY ==
[2019-03-03 11:44] VITALS: BP 127/52; PULSE 56; RESP 16; TEMP 36.3; O2SAT 88
--- NOTE | 2019-03-03 11:54 | W.PM.HP.N ---
Date of service: 03/03/19 Time of Service: 11:54 Assessment and Plan Assessment and plan (1) Neurogenic bladder: Status: Acute Assessment and plan: His bladder has decreased in volume to the point where it is kaela difficult to tell when his urethral catheter has been successfully placed. Will place suprapubic tube to avoid need for urethral instrumentation in this gentleman. Once the SP tube has been placed, I see no reason for him to continue his Tamsulosin and Finasteride History of Present Illness History of Present Illness Chief Complaint: Neurogenic bladder Narrative: BOBBY Dudley is a 73-year-old male referred to urology due to urinary incontinence. Patient reports that approximately a year ago he had a catheter due to his neurogenic bladder. He states that he has had 7 strokes in his lifetime. He tells a story about a catheter being pulled out approximately a year ago by his caregiver. After the catheter was removed accidentally, he states that he could void intermittently advised that he would begin to his brief. He has never CIC and does not want anyone to do it for him. Patient states that if he can feel the sensation to go but cannot void. Reports that last night he voided was last night. He notes he has suprapubic discomfort. He states that he was seen in the emergency room here approximately a month ago he had a catheter placed for 7 days and all the pelvic pain he had prior was alleviated. He reports that the pelvic pain is back since the catheter was removed when he was discharged from hospital. Patient was also noted to have microscopic hematuria on the specimen that was collected and the catheter was placed. Patient reports never having a history of hematuria that he is aware of but [facility] to look [facility] his [facility]. He also mentions that the [facility] was interested in placing an SP tube. He does not know why it never occurred. PMH Constipation PAD PTSD Chronic prostatitis Question neurogenic bladder ED Multiple CVA Depression Diabetes Gout Hypertension SX Carotid endarterectomy Hernia repair Social Former smoker for 62 years Denies current alcohol Allergies Reviewed elsewhere in the chart Medications Reviewed elsewhere in the chart Family Hx no known urologic family history Review of Systems Const: Reports weight loss; Denies chills, fatigue or fever(s) Card: Denies chest pain or dyspnea Resp: Denies dyspnea GI: Reports abdominal pain; Denies constipation or diarrhea : Reports urinary incontinence; Denies hematuria, dysuria, flank pain, nocturia, urinary frequency, urinary hesitancy or urinary urgency Endo: Denies fatigue Exam Const Orientation: alert, awake and oriented x3 Other: VS reviewed that were done by nurse Pt reports wt loss since residing at [facility]& Eyes Sclera: sclerae normal Resp Effort & Inspection: normal respiratory effort GI Inspection: normal to inspection and non-distended Palpation: soft and tender suprapubicly Extrem General: abnormal ROM PFSH Social History Smoking/Tobacco Use Status: Former Tobacco Use Alcohol Intake: former Substance use type: does not use and marijuana Details: Last Marijuana use: October 2018. Do you feel safe at home: Yes Do you feel safe in your relationship?: No Meds Home Medications and Allergies Home Medications Medication Instructions Recorded Confirmed Type clopidogrel [Plavix] 75 mg PO DAILY 10/01/15 03/03/19 History dicyclomine 20 mg PO QID 10/01/15 03/03/19 History finasteride 5 mg PO DAILY 10/01/15 03/03/19 History levetiracetam [Keppra] 500 mg PO BID 10/01/15 03/03/19 History metformin [Glucophage] 500 mg PO BID 10/01/15 03/03/19 History metoprolol tartrate 25 mg PO BID 10/01/15 03/03/19 History nicotine (polacrilex) [Nicorette] 2 mg PO QID 10/01/15 03/03/19 History prazosin 2 mg PO .QHS 10/01/15 03/03/19 History sennosides [senna] 1 tab PO BID 10/01/15 03/03/19 History tamsulosin 0.8 mg PO .QHS 10/01/15 03/03/19 History acetaminophen 650 mg PO Q4H PRN PRN 11/20/18 03/02/19 History allopurinol 300 mg PO DAILY 11/20/18 03/03/19 History amoxicillin-pot clavulanate 1 tab PO BID 11/20/18 03/02/19 History atorvastatin 10 mg PO DAILY 11/20/18 03/03/19 History gabapentin 1,600 mg PO QHS 11/20/18 03/03/19 History albuterol sulfate 0.63 mg INHALATION Q12H 03/01/19 03/03/19 History ammonium lactate [Lac-Hydrin Five] 1 applic TOPICAL DAILY 03/01/19 03/02/19 History bisacodyl [Dulcolax (bisacodyl)] 10 mg UT DAILY PRN 03/01/19 03/02/19 History lidocaine HCl 1 applic TOPICAL Q4H PRN PRN 03/01/19 03/02/19 History loperamide 2 mg PO Q6H PRN 03/01/19 03/03/19 History magnesium hydroxide [Milk of 30 ml PO DAILY PRN PRN 03/01/19 03/03/19 History Magnesia] polyethylene glycol 3350 [Miralax] 17 g PO DAILY PRN 03/01/19 03/02/19 History Allergies Allergy/AdvReac Type Severity Reaction Status Date / Time No Known Allergies Allergy Unverified 03/03/19 11:59 Exam Resp Effort & Inspection: normal respiratory effort Auscultation: diminished lung sounds Cardio Rate: regular rate Rhythm: regular rhythm
[2019-03-03] MEDS: Lactated Ringers 1,000 ML 80 ML IV (12:50)
[2019-03-03] MEDS: ceFAZolin 1 GM/50 ML BAG IVPB (13:10)
[2019-03-03] MEDS: Bupivacaine 0.5% Pres-Free 30 ML VIAL (13:15)
[2019-03-03] MEDS: Lidocaine 2% Jelly 6 ML SYR (13:15)
--- NOTE | 2019-03-03 13:20 | W.PM.DSUDISC ---
Discharge Plan Disposition Patient Disposition: [facility] ([facility] Discharge Details Attending Provider: Eyal Eason Primary Care Provider: Eileen Webster Home Meds and New Rx's Prescriptions: Discontinued finasteride 5 MG tablet 5 mg PO DAILY RF: 0 tamsulosin 0.4 MG capsule 0.8 mg PO .QHS RF: 0 No Action clopidogrel [Plavix] 75 MG tablet 75 mg PO DAILY RF: 0 dicyclomine 10 MG capsule 20 mg PO QID RF: 0 levetiracetam [Keppra] 500 MG tablet 500 mg PO BID RF: 0 nicotine (polacrilex) [Nicorette] 4 MG gum 2 mg PO QID RF: 0 metformin [Glucophage] 1,000 MG tablet 500 mg PO BID RF: 0 metoprolol tartrate 25 MG tablet 25 mg PO BID RF: 0 sennosides [senna] 8.6 MG tablet 1 tab PO BID RF: 0 prazosin 2 MG capsule 2 mg PO .QHS RF: 0 acetaminophen 325 mg Tablet 650 mg PO Q4H PRN PRNRF: 0 atorvastatin 10 mg Tablet 10 mg PO DAILY RF: 0 gabapentin 800 mg Tablet 1,600 mg PO QHS RF: 0 allopurinol 300 mg Tablet 300 mg PO DAILY RF: 0 amoxicillin-pot clavulanate 500-125 mg Tablet 1 tab PO BID RF: 0 albuterol sulfate 0.63 mg/3 mL Solution For Nebulization 0.63 mg INHALATION Q12H RF: 0 polyethylene glycol 3350 [Miralax] 17 gram Powder In Packet 17 g PO DAILY PRNRF: 0 loperamide 2 mg Tablet 2 mg PO Q6H PRNRF: 0 magnesium hydroxide [Milk of Magnesia] 400 mg/5 mL Suspension 30 ml PO DAILY PRN PRNRF: 0 bisacodyl [Dulcolax (bisacodyl)] 10 mg Suppository 10 mg NE DAILY PRNRF: 0 Lac-Hydrin Five 5 % Lotion 1 applic TOPICAL DAILY RF: 0 lidocaine HCl 2 % Jelly In Applicator 1 applic TOPICAL Q4H PRN PRNRF: 0 Discharge Instructions Additional Instructions: dry dressing to SP tube site daily and as needed F/U in our office 1 month for catheter change OK to restart anticoagulants 03/04/2019 Stand Alone Forms: [place] (SILVIA) Activity:: Activity as Tolerated Remove Dressings/Wound Care:: 24 hours Shower/Bathe:: 24 hours Diet:: As Tolerated Discharge Orders Discharge Orders: Discharge Order (Routine); Ordered 03/03/19 Ordered By: Eyal Eason DS: Diagnosis Discharge Diagnosis (1) Neurogenic bladder: Status: Acute
[2019-03-03 14:06] VITALS: BP 153/73; PULSE 65; RESP 18; TEMP 36.2; O2SAT 97
[2019-03-03] MEDS: Oxybutynin 5 MG TAB PO (15:04)
[2019-03-03] MEDS: Simethicone 80 MG CHEW 40 MG PO (15:09)
--- NOTE | 2019-03-03 16:44 | NUR.NOTE ---
This nurse wasted 1/2 tab of an 80mg Simethicone chewable tab that pharmacy brought to me. Witnessed by Faviola Lux RN.Fariba Note:
--- NOTE | 2019-03-04 09:41 | ROE_ITS ---
DATE OF PROCEDURE: March 03, 2019 PREOPERATIVE DIAGNOSIS: Neurogenic bladder. POSTOPERATIVE DIAGNOSIS: Same. PROCEDURE: Cystoscopy; insertion of suprapubic tube. SURGEON: Eyal Eason M.D. ANESTHESIA: MAC with local. COMPLICATIONS: None. HISTORY: This is a 73-year-old gentleman who has a history of a neurogenic bladder. He has been man aged with an indwelling urethral catheter, although changing his urethral catheter has been very diff icult lately. He has a very small capacity bladder and it's difficult to tell if and when the cathet er is appropriately placed within the bladder. In addition, the catheter has caused some erosion of the urethra. He presents now for placement of a suprapubic tube. OPERATIVE REPORT: The patient is brought to the operating room on 03/03/2019. After successful induc tion of monitored anesthesia care, he was placed in the dorsal lithotomy position. His indwelling ca theter was removed. His genitalia and low abdomen were prepped and draped. 2% Xylocaine jelly was instilled into the urethra to act as a local anesthetic. A curved Lowsley ret ractor was passed through the urethra and into the bladder. The tip of the Lowsley retractor was hel d up against the abdominal wall. The abdominal wall was then infiltrated with .25% Marcaine. An inc ision was made overlying the tip of the Lowsley retractor and the tip was brought up onto the abdomin al wall. The jaws of the Lowsley retractor were opened and a 16 [place] catheter was grasped and pulled back do wn through the suprapubic tract out the urethra. The catheter was then withdrawn back up the urethra under cystoscopic guidance. Once the tip of the catheter and its balloon were visualized within the bladder, the catheter balloon was inflated with 1 0 cc's of sterile water and the catheter was hooked to gravity drainage. A dry sterile dressing was applied to the suprapubic site. The patient tolerated this procedure well with no complications. Following the procedure we placed a belladonna and opium suppository rectally to help with postop bladder spasms. The patient will follow-up in one month for his first catheter change. cc: Tali Vallecillo N.P.
== END 2019-03-03 15:55 | disposition intermediate care facility (04) ==
PROVIDERS: PCP Family Medicine; Visit Provider Urology
PROC: (CPT 51102; principal; 2019-03-03 13:00)
DX: N31.9 Neuromuscular dysfunction of bladder, unspecified (principal); N36.8 Other specified disorders of urethra; Z86.73 Personal history of transient ischemic attack (TIA), and cerebral infarction without residual deficits; E11.9 Type 2 diabetes mellitus without complications; I10 Essential (primary) hypertension
CPT/HCPCS: 51102; NC; J0690; J2704

== ENCOUNTER 2019-03-10 14:28 | Outpatient (REF) | payer MEDICARE, SELFPAY ==
[2019-03-10 14:54] LABS: Abs Immature Grans 0.06 k/cumm (0.0-0.09); Absolute Basophil Count 0.03 k/cumm (0.0-0.2); Absolute Eosinophil Count 0.24 k/cumm (0.0-0.7); Absolute Lymphocyte Count 1.78 k/cumm (1.2-3.4); Absolute Monocyte Count 1.51 k/cumm (0.11-0.7); Absolute Neutrophil Count 9.26 k/cumm (1.2-6.7); Basophils % 0.2; Eosinophils % 1.9; HCT 35.4 % (40.0-50.0); HGB 11.6 g/dL (13.5-17.5); Immature Grans % 0.5 %; Lymphocytes % 13.8; Mean Corp. HGB Concentration 32.8 g/dL (32.0-36.0); Mean Corpuscular Hemoglobin 32.3 pg (27.0-33.0); Mean Corpuscular Volume 98.6 fL (80-95); Mean Platelet Volume 11.6 fL (8.0-11.0); Monocytes % 11.7; Neutrophils % 71.9; Platelet Count 217 x1000/uL (130-400); RBC 3.59 m/cumm (4.50-6.00); RBC Distribution Width 14.2 % (11.8-14.1); White Blood Cell Count 12.88 k/cumm (4.4-10.8)
[2019-03-10 14:58] LABS: ALT 10 U/L (16-63); AST 10 U/L (15-37); Albumin 2.3 g/dL (3.4-5.0); Alkaline Phosphatase 65 U/L (46-116); BUN 19 mg/dL (7-18); Bilirubin, Total 0.4 mg/dL (0.2-1.0); Calcium 8.2 mg/dL (8.5-10.1); Chloride 104 mmol/L (98-107); Glucose 228 mg/dL (74-106); Potassium 3.6 mmol/L (3.5-5.1); Sodium 143 mmol/L (136-145); Total Protein 6.6 g/dL (6.4-8.2); Uric Acid 3.6 mg/dL (3.5-7.2)
[2019-03-10 15:06] LABS: Hemoglobin A1C 6.9 % (3.8-5.6)
[2019-03-10 15:23] LABS: Diff Comment Diff Reviewed; Polychromasia Present
[2019-03-10 16:39] LABS: ESR 108 mm/hr (1-20)
== END 2019-03-10 14:48 ==
LOC: LBN 14:28
PROVIDERS: PCP Family Medicine; Visit Provider Family Medicine
DX: E78.5 Hyperlipidemia, unspecified (principal); N40.0 Benign prostatic hyperplasia without lower urinary tract symptoms; E11.9 Type 2 diabetes mellitus without complications; J44.1 Chronic obstructive pulmonary disease with (acute) exacerbation
CPT/HCPCS: 80053; 85652; 83036; 84550; 85025

== ENCOUNTER 2019-03-12 14:11 | Outpatient (REF) | payer MEDICARE, SELFPAY | END 2019-03-12 14:31 | LOC: LBN 14:11 | PROVIDERS: PCP Family Medicine; Visit Provider Nurse Practitioner Adult Health | DX: N40.1 Benign prostatic hyperplasia with lower urinary tract symptoms (principal); R82.79 Other abnormal findings on microbiological examination of urine; N31.9 Neuromuscular dysfunction of bladder, unspecified; E11.621 Type 2 diabetes mellitus with foot ulcer | CPT/HCPCS: 87086 ==

== ENCOUNTER 2019-03-15 11:05 | Outpatient (CLI) | payer MEDICARE, SELFPAY ==
[2019-03-15 12:07] LABS: Abs Immature Grans 0.06 k/cumm (0.0-0.09); Absolute Basophil Count 0.04 k/cumm (0.0-0.2); Absolute Eosinophil Count 0.12 k/cumm (0.0-0.7); Absolute Lymphocyte Count 1.45 k/cumm (1.2-3.4); Absolute Monocyte Count 0.79 k/cumm (0.11-0.7); Absolute Neutrophil Count 6.69 k/cumm (1.2-6.7); Basophils % 0.4; Eosinophils % 1.3; HCT 37.2 % (40.0-50.0); HGB 11.9 g/dL (13.5-17.5); Immature Grans % 0.7 %; Lymphocytes % 15.8; Mean Corpuscular Hemoglobin 31.6 pg (27.0-33.0); Mean Corpuscular Volume 98.9 fL (80-95); Mean Platelet Volume 11.7 fL (8.0-11.0); Monocytes % 8.6; Neutrophils % 73.2; Platelet Count 265 x1000/uL (130-400); RBC 3.76 m/cumm (4.50-6.00); RBC Distribution Width 13.9 % (11.8-14.1); White Blood Cell Count 9.15 k/cumm (4.4-10.8)
== END 2019-03-15 11:25 ==
LOC: LBN 11:45 → LBO 11:46 → LBN 14:10
PROVIDERS: PCP Family Medicine; Visit Provider Nurse Practitioner Adult Health
DX: G40.89 Other seizures (principal); N31.9 Neuromuscular dysfunction of bladder, unspecified
CPT/HCPCS: 36415; 85025

== ENCOUNTER → 2019-03-29 13:52 | Outpatient (BNVA) | payer MEDICARE, MEDICAID, SELFPAY | PROVIDERS: PCP Family Medicine; Referring Provider Family Medicine; Visit Provider Urology | DX: N31.9 Neuromuscular dysfunction of bladder, unspecified (principal) | CPT/HCPCS: 51705; 99212; 99213 ==

== ENCOUNTER 2019-04-24 16:44 | Emergency (ER) | payer MEDICARE, MEDICAID, SELFPAY ==
[2019-04-24] VITALS (15 sets, daily range): BP systolic 140–151; BP diastolic 55–95; PULSE 83–97; RESP 20; TEMP 36.6; O2SAT 85–97
--- NOTE | 2019-04-24 17:05 | W.ED.GENAD ---
Discharge Plan Disposition Patient Disposition: [facility] ([facility] Condition: Improving Discharge Details Chief Complaint: GenMedical Clinical Impression: Pneumonia involving right lung Primary Care Provider: Eileen Webster ED Provider: Simone Pires Home Meds and New Rx's Prescriptions: New amoxicillin-pot clavulanate 875-125 mg tablet 1 tab PO BID 10 Days Qty: 20 RF: 0 No Action clopidogrel [Plavix] 75 MG tablet 75 mg PO DAILY RF: 0 dicyclomine 10 MG capsule 20 mg PO QID RF: 0 levetiracetam [Keppra] 500 MG tablet 500 mg PO BID RF: 0 nicotine (polacrilex) [Nicorette] 4 MG gum 2 mg PO QID RF: 0 metformin [Glucophage] 1,000 MG tablet 500 mg PO BID RF: 0 metoprolol tartrate 25 MG tablet 12.5 mg PO BID RF: 0 sennosides [senna] 8.6 MG tablet 1 tab PO BID RF: 0 prazosin 2 MG capsule 2 mg PO .QHS RF: 0 acetaminophen 325 mg Tablet 650 mg PO Q4H PRN PRNRF: 0 atorvastatin 10 mg Tablet 10 mg PO DAILY RF: 0 gabapentin 800 mg Tablet 1,600 mg PO QHS RF: 0 allopurinol 300 mg Tablet 300 mg PO DAILY RF: 0 albuterol sulfate 0.63 mg/3 mL Solution For Nebulization 0.63 mg INHALATION Q12H RF: 0 polyethylene glycol 3350 [Miralax] 17 gram Powder In Packet 17 g PO DAILY PRNRF: 0 loperamide 2 mg Tablet 2 mg PO Q6H PRNRF: 0 magnesium hydroxide [Milk of Magnesia] 400 mg/5 mL Suspension 30 ml PO DAILY PRN PRNRF: 0 bisacodyl [Dulcolax (bisacodyl)] 10 mg Suppository 10 mg [place] DAILY PRNRF: 0 Lac-Hydrin Five 5 % Lotion 1 applic TOPICAL DAILY RF: 0 lidocaine HCl 2 % Jelly In Applicator 1 applic TOPICAL Q4H PRN PRNRF: 0 simethicone 80 mg Tablet,Chewable 80 mg PO 4-6XD PRNRF: 0 Discharge Instructions Instructions: Pneumonia (ED) Additional Instructions: Your work-up in the emergency department today included laboratories, a negative influenza test, and chest x-ray that revealed developing right lung base pneumonia. You received a dose of Unasyn IV which should provide good coverage for both community-acquired pneumonia as well as aspiration pneumonia. I have prescribed you Augmentin which should begin tomorrow, this may need to be placed as a formal order by your admitting physician. You may continue the previously ordered PRN use of oxygen. Return to the ER for any acute concern. Medical Decision Making This is a 73-year-old male who resides at local rehabilitation facility. He was questioned to have had choking while eating a piece of meat last night. Patient states to me has had days to weeks of a rattle in his chest and today was noted by nursing staff to have cough with production of green sputum. He has PRN use of oxygen which was placed at the alf. He was referred for evaluation. He is DNR, DNI. The patient is afebrile, slightly hypoxic on room air that corrects with supplemental oxygen. He has coarse breath sounds with right-sided rhonchi. Screening laboratories and influenza test obtained. Patient has elevated white blood cell count of 12.7, hematocrit 36, platelets 188, there is evidence of left shift present. Chemistries noted magnesium of 1.1 which was supplemented in the ER. Lactic acid level is 1.2. Chest x-ray with new airspace disease in the right lung base. See formal report. Consistent with developing right-sided pneumonia. Patient is stable, lactic acid is unremarkable, he is required supplemental oxygen as PRN use previously and demonstrated 95% saturation with 3 L. Patient was given Unasyn IV and may transition to Augmentin which should cover both subacute acquired pneumonia as well as aspiration. He is desirous of returning to his rehabilitation facility and I do feel this is reasonable. HPI General Mode of arrival: EMS. Date/Time Provider Initiated Documentation: 04/24/19 16:45. Limitations to Documentation: no limitations. Information obtained by: patient, EMS and RN notes reviewed. History of Present Illness 73 year old M presents to the emergency department with the chief complaint of Cough, production of sputum. Question of aspiration event last night, Quality is described as dull, and is localized to the chest. Patient reports no radiation. Patient started experiencing this hour(s) and it has been constant. No relieving factors improve symptom(s), No exacerbating factors reported . Patient notes other (PRN use of oxygen); denies fever/chills. Patient did receive the following treatments prior to arrival, none Related Data Home Medications Medication Instructions Recorded Confirmed clopidogrel [Plavix] 75 mg PO DAILY 10/01/15 04/24/19 dicyclomine 20 mg PO QID 10/01/15 04/24/19 levetiracetam [Keppra] 500 mg PO BID 10/01/15 04/24/19 metformin [Glucophage] 500 mg PO BID 10/01/15 04/24/19 metoprolol tartrate 12.5 mg PO BID 10/01/15 04/24/19 nicotine (polacrilex) [Nicorette] 2 mg PO QID 10/01/15 04/24/19 prazosin 2 mg PO .QHS 10/01/15 04/24/19 sennosides [senna] 1 tab PO BID 10/01/15 04/24/19 acetaminophen 650 mg PO Q4H PRN PRN 11/20/18 04/24/19 allopurinol 300 mg PO DAILY 11/20/18 04/24/19 atorvastatin 10 mg PO DAILY 11/20/18 04/24/19 gabapentin 1,600 mg PO QHS 11/20/18 04/24/19 albuterol sulfate 0.63 mg INHALATION Q12H 03/01/19 04/24/19 ammonium lactate [Lac-Hydrin Five] 1 applic TOPICAL DAILY 03/01/19 03/02/19 bisacodyl [Dulcolax (bisacodyl)] 10 mg [place] DAILY PRN 03/01/19 04/24/19 lidocaine HCl 1 applic TOPICAL Q4H PRN PRN 03/01/19 04/24/19 loperamide 2 mg PO Q6H PRN 03/01/19 04/24/19 magnesium hydroxide [Milk of 30 ml PO DAILY PRN PRN 03/01/19 04/24/19 Magnesia] polyethylene glycol 3350 [Miralax] 17 g PO DAILY PRN 03/01/19 04/24/19 amoxicillin-pot clavulanate 1 tab PO BID 10 Days #20 tab 04/24/19 simethicone 80 mg PO 4-6XD PRN 04/24/19 04/24/19 Previous Rx's Medication Instructions Recorded amoxicillin-pot clavulanate 1 tab PO BID 10 Days #20 tab 04/24/19 Allergies Allergy/AdvReac Type Severity Reaction Status Date / Time No Known Allergies Allergy Unverified 04/24/19 17:04 General Stated Complaint: GenMedical KM: 3 Review of Systems Narrative: Patient states he has had a rattle in his chest 4 weeks. Nurses question aspiration while eating last night. Today with cough and production of sputum. 6 systems reviewed and otherwise negative [facility] Medical History Anxiety (Chronic) BPH (benign prostatic hyperplasia) (Chronic) COPD (chronic obstructive pulmonary disease) (Chronic) CVA (cerebral vascular accident) (Chronic) Depression (Chronic) Diabetes (Chronic) Gout (Chronic) HTN (hypertension) (Chronic) Neuromuscular disorder (Acute) bladder PTSD (post-traumatic stress disorder) (Acute) Seizure (Chronic) PTViridiana MENDOZA RN [facility] BEEN 1+ YEAR SINCE ANY SEIZURE ACTIVITY Social History Smoking/Tobacco Use Status: Former Tobacco Use Alcohol Intake: former Substance use type: does not use and marijuana Details: Last Marijuana use: October 2018. Do you feel safe at home: Yes Do you feel safe in your relationship?: No Exam Narrative Exam Narrative: GEN: awake, alert, oriented 3. Pleasant, well groomed, interactive. HEAD: Normocephalic, atraumatic ENT: Mucous membranes moist, oropharynx unremarkable, External ear exam unremarkable EYES: PERRL, EOMI NECK: Full ROM, no CHAD, no menigismus CHEST/RESP: Coarse breath sounds bilaterally with rhonchi right side, question faint wheeze expiratory CARDIOVASCULAR: RRR, no murmur, rub duke. 2+ Rad pulse bilateral ABDOMEN: Soft, nontender, no mass. +Bowel sounds EXT: Full ROM, no edema, no rash Neuro: Grossly normal neurologic exam, conversant, interactive. Psych: Speech fluent, thoughts congruent, affect normal Course Vital Signs Vital signs: Vital Signs Temperature 36.6 C 04/24/19 16:50 Pulse 97 H 04/24/19 16:50 Respiratory Rate 04/24/19 16:50 Blood Pressure 151/95 H 04/24/19 16:50 Pulse Oximetry 85 L 04/24/19 16:50 Temperature 36.6 C 04/24/19 16:50 Temperature Source Temporal Artery Scan 04/24/19 16:50 Pulse 97 H 04/24/19 16:50 Respiratory Rate 20 04/24/19 16:50 Respiratory Effort Non-Labored 04/24/19 16:55 Blood Pressure 151/95 H 04/24/19 16:50 Pulse Oximetry 85 L 04/24/19 16:50 Oxygen Delivery Method Room Air 04/24/19 16:50 Oxygen Flow Rate 0 04/24/19 16:50 Comment 04/24/19 16:50
[2019-04-24] MEDS: Normal Saline 1,000 ML 150 ML IV (17:50)
[2019-04-24 18:04] LABS: Lactate 1.2 mmol/L (0.6-1.4)
[2019-04-24 18:09] LABS: Abs Immature Grans 0.03 k/cumm (0.0-0.09); Absolute Basophil Count 0.03 k/cumm (0.0-0.2); Absolute Eosinophil Count 0.08 k/cumm (0.0-0.7); Absolute Monocyte Count 1.04 k/cumm (0.11-0.7); Absolute Neutrophil Count 10.37 k/cumm (1.2-6.7); Basophils % 0.2; Eosinophils % 0.6; HCT 36.2 % (40.0-50.0); HGB 12.1 g/dL (13.5-17.5); Immature Grans % 0.2 %; Lymphocytes % 9.4; Mean Corp. HGB Concentration 33.4 g/dL (32.0-36.0); Mean Corpuscular Hemoglobin 32.4 pg (27.0-33.0); Mean Corpuscular Volume 96.8 fL (80-95); Mean Platelet Volume 10.8 fL (8.0-11.0); Monocytes % 8.2; Neutrophils % 81.4; Platelet Count 188 x1000/uL (130-400); RBC 3.74 m/cumm (4.50-6.00); RBC Distribution Width 14.4 % (11.8-14.1); White Blood Cell Count 12.74 k/cumm (4.4-10.8)
[2019-04-24 18:19] LABS: ALT 13 U/L (16-63); AST 14 U/L (15-37); Albumin 2.4 g/dL (3.4-5.0); Alkaline Phosphatase 66 U/L (46-116); Anion Gap 8.4 mmol/L (3-11); BUN 12 mg/dL (7-18); Bilirubin, Total 0.4 mg/dL (0.2-1.0); CO2 29.6 mmol/L (21.0-32.0); CREATININE 0.75 mg/dL (0.70-1.30); Calcium 8.1 mg/dL (8.5-10.1); Chloride 102 mmol/L (98-107); Glucose 135 mg/dL (74-106); Magnesium 1.1 mg/dL (1.8-2.4); Potassium 3.3 mmol/L (3.5-5.1); Sodium 140 mmol/L (136-145); Total Protein 7.2 g/dL (6.4-8.2)
--- NOTE | 2019-04-24 18:23 | DI.RAD_ITS ---
EXAM: XR CHEST 2V PA LATERAL INDICATION: Cough, sputum production. COMPARISON: PORTABLE CHEST ONE VIEW from 10/01/2015 XR CHEST 2V PA LATERAL from 11/20/2018 XR PORTABLE CHEST AP from 12/09/2018 TECHNIQUE: 2D digital imaging was performed. FINDINGS: The heart size is normal. There are underlying emphysematous and fibrotic changes. There are new den sities seen in the right lower lobe compared with the previous exam. No effusions are seen. IMPRESSION: Right lower lobe infiltrate superimposed on emphysematous and fibrotic changes. DATA REPOSITORY: RADIATION DOSE DELIVERED:
[2019-04-24] MEDS: Albuterol/Ipratropium 3 ML UPD VIAL UPD (18:26)
[2019-04-24] MEDS: AMPICILLIN/SULBACTAM 3 GM in Normal Saline 100 ML IVPB (18:38)
--- NOTE | 2019-04-24 18:55 | DI.VRAD_ITS ---
PROCEDURE INFORMATION: Exam: XR Chest, 2 Views Exam date and time: 04/24/2019 18:18 Age: 73 years old Clinical indication: Patient HX: Cough, sputum production TECHNIQUE: Imaging protocol: XR of the chest Views: 2 views. COMPARISON: XR PORTABLE CHEST AP 12/09/2018 05:57 FINDINGS: Lungs: New airspace disease in the right lung base. Mild generalized interstitial thickening similar to prior. Pleural space: No pleural effusion. No pneumothorax. Heart/Mediastinum: No cardiomegaly. Vasculature: Atherosclerosis. Bones/joints: Nonacute rib fractures. No acute fracture is seen. IMPRESSION: 1. New airspace disease in the right lung base is worrisome for pneumonia. 2. Mild generalized interstitial thickening similar to prior. Dictated and Authenticated by: Sandra Hall MD. Ordering:JAZIEL Nichols MD
[2019-04-24] MEDS: MAGNESIUM SULFATE 2 GM/50 ML BAG IVPB (19:12)
== END 2019-04-24 21:35 | disposition intermediate care facility (04) ==
PROVIDERS: Emergency Provider Emergency Medicine; PCP Family Medicine
DX: R09.02 Hypoxemia (principal); J18.9 Pneumonia, unspecified organism; E83.42 Hypomagnesemia; E11.9 Type 2 diabetes mellitus without complications; Z79.84 Long term (current) use of oral hypoglycemic drugs; J44.0 Chronic obstructive pulmonary disease with (acute) lower respiratory infection; Z87.891 Personal history of nicotine dependence; I10 Essential (primary) hypertension; Z66 Do not resuscitate
CPT/HCPCS: 36415; 80053; 87449; 94640; 96361; 96365; 96367; 99285; 71046; 83605; 83735; 85025; J0295; J7620

== ENCOUNTER → 2019-04-26 11:11 | Outpatient (BNVA) | payer MEDICARE, MEDICAID, SELFPAY | PROVIDERS: PCP Family Medicine; Referring Provider Family Medicine; Visit Provider Urology | DX: N31.9 Neuromuscular dysfunction of bladder, unspecified (principal); Z46.6 Encounter for fitting and adjustment of urinary device | CPT/HCPCS: 51705; 99212 ==

== ENCOUNTER 2019-05-17 13:47 | Outpatient (REF) | payer MEDICARE, MEDICAID, SELFPAY ==
[2019-05-17 17:40] LABS: Hemoglobin A1C 6.7 % (3.8-5.6)
== END 2019-05-17 14:07 ==
LOC: LBN 13:47
PROVIDERS: PCP Family Medicine; Visit Provider Nurse Practitioner Adult Health
DX: E11.621 Type 2 diabetes mellitus with foot ulcer (principal); I10 Essential (primary) hypertension
CPT/HCPCS: 83036

== ENCOUNTER 2019-05-27 12:27 | Outpatient (REF) | payer MEDICARE, MEDICAID, SELFPAY ==
[2019-05-27 13:26] LABS: Abs Immature Grans 0.03 k/cumm (0.0-0.09); Absolute Basophil Count 0.01 k/cumm (0.0-0.2); Absolute Lymphocyte Count 0.92 k/cumm (1.2-3.4); Absolute Monocyte Count 0.63 k/cumm (0.11-0.7); Basophils % 0.1; Eosinophils % 0.4; HCT 39.1 % (40.0-50.0); HGB 12.4 g/dL (13.5-17.5); Immature Grans % 0.2 %; Lymphocytes % 6.7; Mean Corp. HGB Concentration 31.7 g/dL (32.0-36.0); Mean Corpuscular Volume 97.8 fL (80-95); Mean Platelet Volume 11.8 fL (8.0-11.0); Monocytes % 4.6; Platelet Count 221 x1000/uL (130-400); RBC Distribution Width 15.1 % (11.8-14.1); White Blood Cell Count 13.69 k/cumm (4.4-10.8)
[2019-05-27 13:27] LABS: Absolute Eosinophil Count 0.05 k/cumm (0.0-0.7); Absolute Neutrophil Count 12.05 k/cumm (1.2-6.7); Anion Gap 5.3 mmol/L (3-11); BUN 32 mg/dL (7-18); CO2 32.7 mmol/L (21.0-32.0); CREATININE 0.98 mg/dL (0.70-1.30); Calcium 8.8 mg/dL (8.5-10.1); Chloride 103 mmol/L (98-107); Glucose 124 mg/dL (74-106); Potassium 4.2 mmol/L (3.5-5.1); Sodium 141 mmol/L (136-145)
[2019-05-27 13:40] LABS: Bilirubin Negative (Negative); Blood Trace-intact (Negative); Clarity Sl Cloudy (Clear); Glucose Negative (Negative); Ketones Negative (Negative); Leukocyte Esterase Moderate (Negative); Nitrite Positive (Negative); Specific Gravity 1.015 (1.005-1.025); Urobilinogen 0.2 EU/dL (Up TO 0.2); pH 8.5 (5-8)
[2019-05-27 13:59] LABS: Bacteria Many HPF (Negative); C & S Indicated? C&S Done As Ordered; Crystals Many Triple Phos HPF (Negative); Epithelial Cells Rare HPF (Negative); RBC 0-2 HPF (0-2); WBC >50 HPF (0-5)
== END 2019-05-27 12:47 ==
LOC: LBN 12:27
PROVIDERS: Visit Provider Nurse Practitioner Adult Health
DX: N39.0 Urinary tract infection, site not specified (principal); N31.9 Neuromuscular dysfunction of bladder, unspecified; E78.5 Hyperlipidemia, unspecified; I10 Essential (primary) hypertension; E11.9 Type 2 diabetes mellitus without complications; N40.1 Benign prostatic hyperplasia with lower urinary tract symptoms
CPT/HCPCS: 80048; 87077; 81003; 81015; 85025; 87086; 87186

== ENCOUNTER 2019-06-10 16:22 | Outpatient (REF) | payer MEDICARE, MEDICAID, SELFPAY ==
[2019-06-10 17:45] LABS: Bilirubin Negative (Negative); Blood Small (Negative); Clarity Sl Cloudy (Clear); Glucose Negative (Negative); Ketones Negative (Negative); Leukocyte Esterase Small (Negative); Nitrite Negative (Negative); Specific Gravity 1.025 (1.005-1.025); Urobilinogen 0.2 EU/dL (Up TO 0.2)
[2019-06-10 17:55] LABS: Bacteria Moderate HPF (Negative); Crystals Negative HPF (Negative); Epithelial Cells Rare HPF (Negative); Other Cells Moderate Yeast (Negative); WBC >50 HPF (0-5)
[2019-06-10 17:56] LABS: C & S Indicated? Yes; Casts Negative LPF (Negative); Mucus Moderate (Negative)
== END 2019-06-10 16:42 ==
LOC: LBN 16:22
PROVIDERS: PCP Family Medicine; Visit Provider Nurse Practitioner Adult Health
DX: N39.0 Urinary tract infection, site not specified (principal)
CPT/HCPCS: 87077; 81003; 81015; 87086

== ENCOUNTER 2019-06-18 21:23 | Outpatient (REF) | payer MEDICARE, MEDICAID, SELFPAY ==
[2019-06-18 21:39] LABS: Abs Immature Grans 0.02 k/cumm (0.0-0.09); Absolute Basophil Count 0.04 k/cumm (0.0-0.2); Absolute Eosinophil Count 0.18 k/cumm (0.0-0.7); Absolute Lymphocyte Count 2.15 k/cumm (1.2-3.4); Absolute Monocyte Count 0.79 k/cumm (0.11-0.7); Absolute Neutrophil Count 6.74 k/cumm (1.2-6.7); Basophils % 0.4; Eosinophils % 1.8; HCT 39.6 % (40.0-50.0); HGB 12.9 g/dL (13.5-17.5); Immature Grans % 0.2 %; Lymphocytes % 21.7; Mean Corp. HGB Concentration 32.6 g/dL (32.0-36.0); Mean Corpuscular Hemoglobin 31.2 pg (27.0-33.0); Mean Corpuscular Volume 95.9 fL (80-95); Mean Platelet Volume 12.2 fL (8.0-11.0); Neutrophils % 67.9; Platelet Count 167 x1000/uL (130-400); RBC 4.13 m/cumm (4.50-6.00); RBC Distribution Width 14.4 % (11.8-14.1); White Blood Cell Count 9.92 k/cumm (4.4-10.8)
== END 2019-06-18 21:43 ==
LOC: LBN 21:23
PROVIDERS: PCP Family Medicine; Visit Provider Family Medicine
DX: R68.89 Other general symptoms and signs (principal); E11.9 Type 2 diabetes mellitus without complications
CPT/HCPCS: 85025

== ENCOUNTER 2019-06-21 16:45 | Outpatient (REF) | payer MEDICARE, MEDICAID, SELFPAY ==
[2019-06-21 15:38] LABS: Abs Immature Grans 0.02 k/cumm (0.0-0.09); Absolute Basophil Count 0.02 k/cumm (0.0-0.2); Absolute Eosinophil Count 0.11 k/cumm (0.0-0.7); Absolute Lymphocyte Count 0.91 k/cumm (1.2-3.4); Absolute Monocyte Count 0.44 k/cumm (0.11-0.7); Absolute Neutrophil Count 3.87 k/cumm (1.2-6.7); Basophils % 0.4; HCT 39.1 % (40.0-50.0); HGB 12.7 g/dL (13.5-17.5); Immature Grans % 0.4 %; Lymphocytes % 16.9; Mean Corp. HGB Concentration 32.5 g/dL (32.0-36.0); Mean Corpuscular Hemoglobin 31.5 pg (27.0-33.0); Mean Platelet Volume 12.3 fL (8.0-11.0); Monocytes % 8.2; Neutrophils % 72.1; Platelet Count 157 x1000/uL (130-400); RBC 4.03 m/cumm (4.50-6.00); RBC Distribution Width 14.5 % (11.8-14.1); White Blood Cell Count 5.37 k/cumm (4.4-10.8)
[2019-06-21 16:09] LABS: ALT 16 U/L (16-63); AST 11 U/L (15-37); Albumin 2.7 g/dL (3.4-5.0); Alkaline Phosphatase 58 U/L (46-116); Anion Gap 6.4 mmol/L (3-11); BUN 18 mg/dL (7-18); Bilirubin, Total 0.3 mg/dL (0.2-1.0); CO2 30.6 mmol/L (21.0-32.0); CREATININE 0.69 mg/dL (0.70-1.30); Calcium 8.4 mg/dL (8.5-10.1); Chloride 103 mmol/L (98-107); Glucose 145 mg/dL (74-106); Potassium 3.9 mmol/L (3.5-5.1); Sodium 140 mmol/L (136-145); Total Protein 6.8 g/dL (6.4-8.2)
== END 2019-06-21 17:05 ==
LOC: LBN 16:45
PROVIDERS: PCP Family Medicine; Visit Provider Nurse Practitioner Adult Health
DX: E78.5 Hyperlipidemia, unspecified (principal); N40.1 Benign prostatic hyperplasia with lower urinary tract symptoms; J69.0 Pneumonitis due to inhalation of food and vomit
CPT/HCPCS: 80053; 85025

== ENCOUNTER 2019-09-06 13:42 | Outpatient (REF) | payer MEDICARE, MEDICAID, SELFPAY ==
[2019-09-06 12:22] LABS: Anion Gap 8.5 mmol/L (3-11); BUN 30 mg/dL (7-18); CO2 30.5 mmol/L (21.0-32.0); CREATININE 1.33 mg/dL (0.70-1.30); Calcium 8.2 mg/dL (8.5-10.1); Chloride 101 mmol/L (98-107); Estimated GFR 52.42 (mL/min/1.73m2); Glucose 262 mg/dL (74-106); Potassium 4.1 mmol/L (3.5-5.1); Sodium 140 mmol/L (136-145)
[2019-09-06 12:25] LABS: Abs Immature Grans 0.05 k/cumm (0.0-0.09); Absolute Basophil Count 0.03 k/cumm (0.0-0.2); Absolute Eosinophil Count 0.04 k/cumm (0.0-0.7); Absolute Lymphocyte Count 1.56 k/cumm (1.2-3.4); Absolute Monocyte Count 1.28 k/cumm (0.11-0.7); Absolute Neutrophil Count 10.27 k/cumm (1.2-6.7); Basophils % 0.2; Eosinophils % 0.3; HCT 39.5 % (40.0-50.0); Immature Grans % 0.4 %; Lymphocytes % 11.8; Mean Corp. HGB Concentration 32.9 g/dL (32.0-36.0); Mean Corpuscular Hemoglobin 32.7 pg (27.0-33.0); Mean Corpuscular Volume 99.2 fL (80-95); Mean Platelet Volume 12.3 fL (8.0-11.0); Monocytes % 9.7; Neutrophils % 77.6; Platelet Count 174 x1000/uL (130-400); RBC 3.98 m/cumm (4.50-6.00); RBC Distribution Width 14.4 % (11.8-14.1); White Blood Cell Count 13.24 k/cumm (4.4-10.8)
== END 2019-09-06 14:02 ==
LOC: LBN 13:42
PROVIDERS: PCP Family Medicine; Visit Provider Nurse Practitioner Adult Health
DX: I10 Essential (primary) hypertension (principal); E11.621 Type 2 diabetes mellitus with foot ulcer; N39.0 Urinary tract infection, site not specified
CPT/HCPCS: 80048; 85025; 87086

== ENCOUNTER 2019-09-06 15:03 | Inpatient (IN) | payer MEDICARE, MEDICAID, SELFPAY ==
[2019-09-06] VITALS (56 sets, daily range): BP systolic 98–133; BP diastolic 51–82; PULSE 70–97; RESP 16–36; TEMP 36.5–37.3; O2SAT 93–99
--- NOTE | 2019-09-06 14:50 | ED.GENADUL_ITS ---
Discharge Plan Disposition Patient Disposition: [facility] INPATIENT Condition: Fair Discharge Details Chief Complaint: RespSymp Clinical Impression: UTI (urinary tract infection), Pneumonia, Atrial flutter Admit Date/Time: 09/06/19 18:42 Admit Provider: Luis Newberry Attending Provider: Luis Newberry Primary Care Provider: Eileen Webster ED Provider: Amna Hudson Discharge Data Discharge Date/Time-TO BE ENTERED AT DEPARTURE: 09/06/19 19:40 Medical Decision Making <INO Dow - Last Filed: 09/07/19 07:48> 73-year-old gentleman with a significant past medical history of seizure disord er, hypertension, diabetes, CVA with left-sided hemiplegia, COPD, anxiety, neurogenic bladder with suprapubic catheter, presented to the ER today with vague symptoms. Nausea, vomiting, tremor that began over the last several hours. Potentially slightly confused with may be decreased urinary output. I was able to review his labs from earlier today, mild nonspecific leukocytosis, GFR slightly worse than baseline. Plan here in the ER today is to obtain IV access, give IV fluid, obtain CBC, CMP, troponin, lipase, lactate, EKG and chest x-ray. Differential includes but not excluded to aspiration pneumonia, UTI, dehydration, electrolyte abnormality, ACS, altered mental status, A. fib with RVR. Initially having difficulty establishing IV access, now attempts are being made with ultrasound. His Lopez catheter did flush nicely but there was initially no return. The urine that was in his leg bag looked very concentrated and there was only a small amount. EKG interpreted and reviewed with Dr. Pires as A. fib, rate in the 90s. No STEMI. IV access is still being attempted at transfer of care. X-ray has been notified to come over for portable chest x-ray. In the ER patient is afebrile, no evidence of tachycardia. He appears hemodynamically stable. O2 sats are in the low 90s with supplemental oxygen nasal cannula. Difficult to know exactly what his sats were over at the rehab facility, he does have an essential tremor and initially attempting to obtain an accurate O2 sat was difficult. <INO Ibarra - Last Filed: 09/06/19 19:53> Care transition to myself from Luis Enrique Moreau PA-C. Please review his note for history and presentation. In brief, patient is a 73-year-old gentleman with significant past medical history presenting with concern for nausea, vomiting, tremor. Patient does reside at the [facility] and decreased urinary output was noted. Patient does have a suprapubic catheter. EKG was obtained showing A. fib which is new for the patient. There was concern for potential infection. He was noted to have leukocytosis when outpatient labs were obtained earlier in the day. He does have a history of aspiration pneumonia. Also had UTI associated with a suprapubic catheter. Labs are currently pending. Contacted by the lab, lactate 2.1. Patient is receiving hydration. I did add on blood cultures as well. Labs reviewed. Leukocytosis with a white count of 13.59, Hemoglobin of 13.4. BUN 32, creatinine 1.32. Troponin less than 0.05. Urinalysis is positive for nitrates and many bacteria. Will begin on IV antibiotics. Chest x-ray reviewed by radiologist: FINDINGS: Lungs: Increased interstitial lung markings suggesting edema, infection or fibrotic changes. Pleural space: Unremarkable. No pleural effusion. No pneumothorax. Heart/Mediastinum: Unremarkable. No cardiomegaly. Vasculature: Atherosclerosis. Bones/joints: Unremarkable. IMPRESSION: Atherosclerosis. Increased interstitial lung markings suggesting edema, infection or fibrotic changes. Patient given 1 g of IV ceftriaxone. I am concern the patient has urosepsis as he was reported to have altered mentation in the setting of UTI. We did repeat the EKG and the findings of what appeared to be more consistent with a flutter, had resolved after 1 L hydration. Patient is oriented to person and month but not to place. He does appear nontoxic. No CVA tenderness, abdominal pain. He has made minimal urine since being here. Plan to admit for continued monitoring and treatment. I did discuss this with the patient who is in agreement. Consulted with hospitalist, Dr. Barragan, who agrees to admission for pneumonia and UTI. HPI <INO Dow - Last Filed: 09/07/19 07:48> General Mode of arrival: EMS . Date/Time Provider Initiated Documentation: 09/06/19 15:19 . Limitations to Documentation: no limitations . Information obtained by: patient . HPI Narrative: This is a 73-year-old gentleman with seizure disorder, hypertension, diabetes, CVA with left-sided hemiparesis, COPD, anxiety, neurogenic bladder with indwelling Lopez catheter. He is [facility] and is a DNR/DNI. His initial presentation is a little unclear. We initially received report stating that his pulse was 136, O2 sats were in the low 80s on 4 L nasal cannula, he was nauseous, vomiting, retching. There was also a question of potential mild confusion and decreased urinary output. No documented fever. Patient reports that he feels shaky, but has no new pain. Reports chronic pain in his left ribs from previous rib fracture as well as chronic pain in his left foot from previous foot fracture. Patient is nonambulatory. He denies headache to me. He denies neck pain, anterior chest pain. He does report a chronic cough that is may be slightly worse now. The cough is dry in nature. He is O2 dependent at baseline. He denies any abdominal pain. Nausea is improving with the Zofran that he received via EMS on his way here to the ER. Related Data Home Medications Medication Instructions Recorded Confirmed clopidogrel [Plavix] 75 mg PO DAILY 10/01/15 09/06/19 dicyclomine 20 mg PO TID 10/01/15 09/06/19 levetiracetam [Keppra] 500 mg PO BID 10/01/15 09/06/19 metformin [Glucophage] 500 mg PO BID 10/01/15 09/06/19 metoprolol tartrate 12.5 mg PO BID 10/01/15 09/06/19 prazosin 2 mg PO .QHS 10/01/15 09/06/19 sennosides [senna] 1 tab PO BID 10/01/15 09/06/19 acetaminophen 650 mg PO Q4H PRN PRN 11/20/18 09/06/19 allopurinol 300 mg PO DAILY 11/20/18 09/06/19 atorvastatin 10 mg PO DAILY 11/20/18 09/06/19 gabapentin 1,200 mg PO QHS 11/20/18 09/06/19 albuterol sulfate 0.63 mg INHALATION Q12H 03/01/19 09/06/19 ammonium lactate [Lac-Hydrin Five] 1 applic TOPICAL DAILY 03/01/19 09/06/19 bisacodyl [Dulcolax (bisacodyl)] 10 mg [place] DAILY PRN 03/01/19 09/06/19 lidocaine HCl 1 applic TOPICAL Q4H PRN PRN 03/01/19 09/06/19 loperamide 2 mg PO Q6H PRN 03/01/19 09/06/19 magnesium hydroxide [Milk of 30 ml PO DAILY PRN PRN 03/01/19 09/06/19 Magnesia] polyethylene glycol 3350 [Miralax] 17 g PO DAILY PRN 03/01/19 09/06/19 simethicone 80 mg PO 4-6XD PRN 04/24/19 09/06/19 Lactobacillus acidophilus 1,000 mmu cells PO BID 09/06/19 09/06/19 albuterol sulfate [ProAir 2 inh INHALATION Q6H PRN 09/06/19 09/06/19 RespiClick] cranberry 425 mg PO BID 09/06/19 09/06/19 Allergies Allergy/AdvReac Type Severity Reaction Status Date / Time No Known Allergies Allergy Unverified 09/06/19 17:45 General KM: 3 Review of Systems <INO Dow - Last Filed: 09/07/19 07:48> Constitutional Constitutional: Denies fatigue, Denies fever(s), Denies headache(s) and Reports weakness (Left-sided hemiparesis) Eyes Eyes: Denies eye discharge ENT Ears, Nose, Mouth, and Throat: Denies headache(s), Denies neck pain and Denies sore throat Cardiovascular Cardiovascular: Reports chest pain (Chronic left-sided chest wall pain) and Reports dyspnea (Chronic) Respiratory Respiratory: Reports cough (Chronic dry) and Reports dyspnea (Chronic) Gastrointestinal Gastrointestinal: Denies abdominal pain, Denies diarrhea, Reports nausea and Reports vomiting Genitourinary Genitourinary: Denies hematuria, Reports oliguria and Denies dysuria Musculoskeletal Musculoskeletal: Denies neck pain Integumentary/Breasts Skin/Breast: Denies rash Neurologic Neurologic: Denies headache(s) and Reports weakness (Left-sided hemiparesis) Endocrine Endocrine: Denies fatigue PFSH <INO Dow - Last Filed: 09/07/19 07:48> Medical History (Updated 09/06/19 @ 19:53 by INO Ibarra) Anxiety (Chronic) BPH (benign prostatic hyperplasia) (Chronic) COPD (chronic obstructive pulmonary disease) (Chronic) CVA (cerebral vascular accident) (Chronic) left hemiparesis Depression (Chronic) Diabetes (Chronic) Gout (Chronic) HTN (hypertension) (Chronic) Neuromuscular disorder (Acute) bladder PTSD (post-traumatic stress disorder) (Acute) Seizure (Chronic) 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 Do you feel safe at home: Yes Exam <INO Dow - Last Filed: 09/07/19 07:48> Const General: cooperative, comfortable and no acute distress Orientation: alert, awake, oriented to person and confused (Patient knows it is August 2019, unsure of the exact day) [facility] Head: normal to inspection, no palpable skull fracture, normocephalic and atraumatic Face and sinus: normal facial exam Mouth: moist mucous membranes abnormal (Slightly dry mucous membranes) Throat: posterior oropharynx normal Eyes Conjunctivae: conjunctivae normal Sclera: sclerae normal Neck Neck: normal visual inspection, full ROM, no lymphadenopathy, no meningeal signs, trachea midline, supple and nontender Resp Effort & Inspection: normal respiratory effort and able to speak in complete sentences Auscultation: diminished lung sounds bilaterally in the lower lung suarez Cardio Rate: regular rate Rhythm: abnormal rhythm irregularly irregular GI Inspection: other (Suprapubic catheter present) Palpation: soft, not firm, no guarding, not rigid and nontender Auscultation: normal bowel sounds Back/Spine/Pelvis Back: No back tenderness Skin General skin exam: no rashes or lesions noted Neuro General: patient alert, patient awake, oriented Patient Orientation: Person, Pl buster and Confused (To the exact date, knows August 2019), moves all extremities, no focal motor deficits and other (Mild essential tremor) Speech: speech normal Motor: other (Left-sided hemiparesis as noted) Sensory Exam: other (Left-sided hemiparesis as noted with sensory dysfunction) Extrem General: other Right upper extremity: normal to inspection, full ROM and normal capillary refill Right lower extremity: normal to inspection, full ROM and normal capillary refill Other: Left upper and lower extremities baseline hemiplegia with contractures Psych Appearance: grossly normal Mental Status: mental status grossly normal Sign Out <INO Dow - Last Filed: 09/07/19 07:48> Sign Out Data: Sign Out Comment: Very early on in his evaluation. Catheter did flush nicely, no return. IV access still being obtained. Plan is to give IV fluids, check x- ray and laboratory values. EKG initially shows A. fib, no clear indication in his prior records that he has a history of A. fib. No evidence of RVR here in the ER. Laboratory values will need to be assessed as well as patient reevaluated before any obvious disposition can be made. Given his concentrated urine very well could have a urinary tract infection. His most recent visit was secondary to aspiration pneumonia. If any obvious source is found, blood cultures likely indicated. Last updated by Jairo Moreau PA at 09/06/19 16:05
--- NOTE | 2019-09-06 15:00 | RT.EKG_ITS ---
APPROVED REPORT Exam: Resting ECG Patient Location: E HR:75 bpm ECG Measurements Heart Rate 75 AXIS AL 150 P 66 QRSd 107 QRS -11 QT 394 T 103 QTc 441 <Conclusion> Sinus rhythm...normal P axis, V-rate 60- 99 Consider anteroseptal infarct...Q >30mS, dimin R, V1-V2
--- NOTE | 2019-09-06 15:15 | RT.EKG_ITS ---
APPROVED REPORT Exam: Resting ECG Patient Location: E HR:92 bpm ECG Measurements Heart Rate 92 AXIS IL [id number] P [id number] QRSd 104 QRS -11 QT 336 T 133 QTc 415 <Conclusion> Atrial fibrillation...V-rate 91- 93, irreg A-activity Probable anterolateral infarct, old...Q>35mS, abnrm ST-T, V2-V6,I,aVL
--- NOTE | 2019-09-06 15:15 | DI.RAD_ITS ---
EXAM: XR PORTABLE CHEST AP CLINICAL HISTORY: sob/cough TECHNIQUE: COMPARISON: CR,XR XR CHEST 2V PA LATERAL from 11/20/2018 CR,XR XR CHEST 2V PA LATERAL from 04/24/2019 FINDINGS: Heart is not enlarged. There is some prominence of pulmonary interstitial markings, probably unchang ed from prior examinations including October 2018, likely pulmonary fibrosis. No focal consolidati on. No pleural effusion identified on this frontal film. IMPRESSION: No evidence of acute process.
[2019-09-06] MEDS: Ondansetron 4 MG/2 ML VIAL IVP (16:22)
[2019-09-06] MEDS: Normal Saline 1,000 ML 1000 ML IV (16:23)
[2019-09-06 16:31] LABS: Abs Immature Grans 0.04 k/cumm (0.0-0.09); Absolute Eosinophil Count 0.05 k/cumm (0.0-0.7); Absolute Lymphocyte Count 1.14 k/cumm (1.2-3.4); Basophils % 0.1; Eosinophils % 0.4; HCT 40.8 % (40.0-50.0); HGB 13.4 g/dL (13.5-17.5); Immature Grans % 0.3 %; Lymphocytes % 8.4; Mean Corp. HGB Concentration 32.8 g/dL (32.0-36.0); Mean Corpuscular Hemoglobin 32.4 pg (27.0-33.0); Mean Corpuscular Volume 98.8 fL (80-95); Mean Platelet Volume 11.3 fL (8.0-11.0); Monocytes % 10.4; Neutrophils % 80.4; Platelet Count 145 x1000/uL (130-400); RBC 4.13 m/cumm (4.50-6.00); RBC Distribution Width 14.4 % (11.8-14.1); White Blood Cell Count 13.59 k/cumm (4.4-10.8)
[2019-09-06 16:34] LABS: Lactate 2.1 mmol/L (0.6-1.4)
[2019-09-06 16:38] LABS: Absolute Basophil Count 0.01 k/cumm (0.0-0.2); Absolute Monocyte Count 1.41 k/cumm (0.11-0.7); Absolute Neutrophil Count 10.93 k/cumm (1.2-6.7)
[2019-09-06] MEDS: ACETAMINOPHEN 1,000 MG/100 ML BTL 400 MG IVPB (16:47)
[2019-09-06 16:52] LABS: ALT 24 U/L (16-63); AST 20 U/L (15-37); Albumin 2.8 g/dL (3.4-5.0); Alkaline Phosphatase 61 U/L (46-116); Anion Gap 5.5 mmol/L (3-11); BUN 32 mg/dL (7-18); Bilirubin, Total 0.7 mg/dL (0.2-1.0); CO2 33.5 mmol/L (21.0-32.0); CREATININE 1.32 mg/dL (0.70-1.30); Calcium 8.6 mg/dL (8.5-10.1); Chloride 101 mmol/L (98-107); Estimated GFR 52.88 (mL/min/1.73m2); Glucose 171 mg/dL (74-106); Potassium 4.5 mmol/L (3.5-5.1); Sodium 140 mmol/L (136-145); Total Protein 7.9 g/dL (6.4-8.2)
[2019-09-06 16:53] LABS: Troponin I < 0.05 ng/mL (<0.06)
[2019-09-06] MEDS: cefTRIAXone 1 GM/50 ML BAG IVPB (17:08)
[2019-09-06 17:11] LABS: Bilirubin Negative (Negative); Blood Large (Negative); Clarity Cloudy (Clear); Glucose Negative (Negative); Ketones Negative (Negative); Leukocyte Esterase Small (Negative); Nitrite Positive (Negative); Specific Gravity 1.025 (1.005-1.025); Urobilinogen 0.2 EU/dL (Up TO 0.2); pH 5.5 (5-8)
[2019-09-06 17:18] LABS: Bacteria Many HPF (Negative); C & S Indicated? Yes; Crystals Negative HPF (Negative); Epithelial Cells Negative HPF (Negative); Mucus Negative (Negative); RBC >50 HPF (0-2); WBC >50 HPF (0-5)
--- NOTE | 2019-09-06 17:52 | DI.VRAD_ITS ---
PROCEDURE INFORMATION: Exam: XR Chest, 1 View Exam date and time: 09/06/2019 4:01 PM Age: 73 years old Clinical indication: Shortness of breath TECHNIQUE: Imaging protocol: XR of the chest Views: 1 view. COMPARISON: CR XR CHEST 2V PA LATERAL 04/24/2019 6:17 PM FINDINGS: Lungs: Increased interstitial lung markings suggesting edema, infection or fibrotic changes. Pleural space: Unremarkable. No pleural effusion. No pneumothorax. Heart/Mediastinum: Unremarkable. No cardiomegaly. Vasculature: Atherosclerosis. Bones/joints: Unremarkable. IMPRESSION: Atherosclerosis. Increased interstitial lung markings suggesting edema, infection or fibrotic changes. Dictated and Authenticated by: Fatou Miranda MD. Ordering:ADAM Gill MD
[2019-09-06 19:22] LABS: Troponin I < 0.05 ng/mL (<0.06)
--- NOTE | 2019-09-06 19:24 | HPE_ITS ---
Date of service: 09/06/19 Time of Service: 19:24 Assessment and Plan Assessment and plan (1) UTI (urinary tract infection): Status: Acute Assessment and plan: He has a chronic indwelling catheter. He states the current catheter has been there for about a month. I suspect some of the pyuria and hematuria is related to the catheter itself versus an acute infection. He does not appear to be septic. He received a dose of ceftriaxone. Blood cultures and urine cultures are pending. (2) Pneumonia: Status: Acute Assessment and plan: He is hypoxic requiring 6 L to maintain 93%. He does not appear to have a significant infiltrate by exam. Will tolerate sats in the low 90s. He received an empiric dose of ceftriaxone for possible pneumonia. With the retching he had earlier there was some concern of an aspiration event. I do not think clinically he is all that ill so will monitor on just the ceftriaxone for now. Hold on anaerobic coverage. (3) Atrial flutter: Status: Acute Assessment and plan: His initial EKG showed some evidence of atrial flutter. This was repeated in about an hour and it showed a sinus rhythm. He received some IV fluids which overall made him feel better. We will continue to monitor on telemetry to see if he is in and out of atrial fibrillation which would be a new diagnosis for him. At this point hold on anticoagulation. (4) Neurogenic bladder: Status: Acute Assessment and plan: Suprapubic catheter appears to be functioning well. Will ask urology to see him for catheter replacement. (5) COPD (chronic obstructive pulmonary disease): Status: Chronic Assessment and plan: History of longstanding smoking. His breathing does not appear at all labored. He is not wheezing. We will continue with albuterol updrafts as needed and supplemental oxygen tolerating sats as low as 88%. (6) Seizure: Status: Chronic Assessment and plan: He is a remote history of seizure disorder. Continue the Keppra. (7) HTN (hypertension): Status: Chronic Assessment and plan: We will continue with his usual antihypertensives. (8) Diabetes: Status: Chronic Assessment and plan: Blood sugar 171. Given his bump in creatinine we will hold the metformin and put on corrective aspart coverage. (9) CVA (cerebral vascular accident): Status: Chronic Assessment and plan: Remote history of multiple CVAs. He is nonambulatory. No rehab potential for that left side. (10) Discharge planning issues: Status: Acute Assessment and plan: He is DNR/DNI per his [place]. Admit to acute care status given his multiple comorbidities and unclear how his clinical course will unfold. History of Present Illness History of Present Illness Chief Complaint: UTI/pneumonia/dehydration Narrative: This is a 73-year-old man with severe cerebrovascular disease/left hemiplegia that resides at [facility] rehab. This morning staff had trouble waking him up. He had dry heaves and was not himself. He was referred to the emergency room. In the emergency room he had vague symptoms. A specimen from his suprapubic catheter was grossly positive for infection. His chest x-ray was suspicious for a left upper lobe infiltrate. He received some IV fluids and was started on ceftriaxone. He is being admitted for further treatment. Review of Systems Narrative: He is generally alert and coherent. He is able to give a good history. Overall spirits are good. He offers no significant complaints. He states he had a supra pubic catheter placed about [address] Eason. He does not think it is working correctly because he is still incontinent of urine through his penis. He has a complete left hemiplegia and exercises his left arm 100 times a day. He states he is not sure why he is still alive after having had 6 strokes. He is not having any chest pain. Denies any cough or shortness of breath. 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 Do you feel safe at home: Yes Meds Home Medications and Allergies Home Medications Medication Instructions Recorded Confirmed Type clopidogrel [Plavix] 75 mg PO DAILY 10/01/15 09/06/19 History dicyclomine 20 mg PO TID 10/01/15 09/06/19 History levetiracetam [Keppra] 500 mg PO BID 10/01/15 09/06/19 History metformin [Glucophage] 500 mg PO BID 10/01/15 09/06/19 History metoprolol tartrate 12.5 mg PO BID 10/01/15 09/06/19 History prazosin 2 mg PO .QHS 10/01/15 09/06/19 History sennosides [senna] 1 tab PO BID 10/01/15 09/06/19 History acetaminophen 650 mg PO Q4H PRN PRN 11/20/18 09/06/19 History allopurinol 300 mg PO DAILY 11/20/18 09/06/19 History atorvastatin 10 mg PO DAILY 11/20/18 09/06/19 History gabapentin 1,200 mg PO QHS 11/20/18 09/06/19 History albuterol sulfate 0.63 mg INHALATION Q12H 03/01/19 09/06/19 History ammonium lactate [Lac-Hydrin Five] 1 applic TOPICAL DAILY 03/01/19 09/06/19 History bisacodyl [Dulcolax (bisacodyl)] 10 mg [place] DAILY PRN 03/01/19 09/06/19 History lidocaine HCl 1 applic TOPICAL Q4H PRN PRN 03/01/19 09/06/19 History loperamide 2 mg PO Q6H PRN 03/01/19 09/06/19 History magnesium hydroxide [Milk of 30 ml PO DAILY PRN PRN 03/01/19 09/06/19 History Magnesia] polyethylene glycol 3350 [Miralax] 17 g PO DAILY PRN 03/01/19 09/06/19 History simethicone 80 mg PO 4-6XD PRN 04/24/19 09/06/19 History Lactobacillus acidophilus 1,000 mmu cells PO BID 09/06/19 09/06/19 History albuterol sulfate [ProAir 2 inh INHALATION Q6H PRN 09/06/19 09/06/19 History RespiClick] cranberry 425 mg PO BID 09/06/19 09/06/19 History Allergies Allergy/AdvReac Type Severity Reaction Status Date / Time No Known Allergies Allergy Unverified 09/06/19 17:45 Exam Narrative Exam Narrative: On exam he is somewhat disheveled. He has a whitish discoloration over the tip of his nose. His pupils are equal and reactive. His speech is really quite clear although he does pause between thoughts for quite a long time and occasionally starts a sentence with slight dysarthria but it improves almost immediately. He has a complete flaccid paralysis of the left side, his left arm and left leg. His left foot has a contracture. The right side appears to move normally. His breathing is not at all labored. His lung sounds are generally clear. Heart sounds are regular. Abdomen is completely soft and nontender. The suprapubic catheter site is clean with the clean dressing. Results Labs Result diagrams: 09/06/19 16:15 09/06/19 16:15 Labs: Laboratory Results - last 24 hr 09/06/19 09/06/19 09/06/19 16:15 16:15 16:15 WBC 13.59 H RBC 4.13 L Hgb 13.4 L Hct 40.8 MCV 98.8 H MCH 32.4 MCHC 32.8 RDW 14.4 H Plt Count 145 MPV 11.3 H Immature Gran % 0.3 Neutrophils % 80.4 Lymphocytes % 8.4 Monocytes % 10.4 Eosinophils % 0.4 Basophils % 0.1 Absolute Neutrophils 10.93 H Absolute Lymphocytes 1.14 L Absolute Monocytes 1.41 H Absolute Eosinophils 0.05 Absolute Basophils 0.01 Sodium 140 Potassium 4.5 Chloride 101 Carbon Dioxide 33.5 H Anion Gap 5.5 BUN 32 H Creatinine 1.32 H Estimated GFR/1.73 m2 52.88 Glucose 171 H D Lactate 2.1 H* Calcium 8.6 Total Bilirubin 0.7 AST 20 ALT 24 Alkaline Phosphatase 61 Troponin I Total Protein 7.9 Albumin 2.8 L Urine Color Urine Clarity Urine pH Ur Specific [place] Urine Protein Urine Ketones Urine Blood Urine Nitrite Urine Bilirubin Urine Urobilinogen Ur Leukocyte Esterase Urine RBC Urine WBC Ur Epithelial Cells Urine Crystals Urine Bacteria Urine Mucus Ur Culture Indicated? Urine Glucose 09/06/19 09/06/19 09/06/19 16:15 17:00 18:42 WBC RBC Hgb Hct MCV MCH MCHC RDW Plt Count MPV Immature Gran % Neutrophils % Lymphocytes % Monocytes % Eosinophils % Basophils % Absolute Neutrophils Absolute Lymphocytes Absolute Monocytes Absolute Eosinophils Absolute Basophils Sodium Potassium Chloride Carbon Dioxide Anion Gap BUN Creatinine Estimated GFR/1.73 m2 Glucose Lactate Calcium Total Bilirubin AST ALT Alkaline Phosphatase Troponin I < 0.05 < 0.05 Total Protein Albumin Urine Color Yellow Urine Clarity Cloudy Urine pH 5.5 Ur Specific [place] 1.025 Urine Protein >=300 H Urine Ketones Negative Urine Blood Large H Urine Nitrite Positive H Urine Bilirubin Negative Urine Urobilinogen 0.2 Ur Leukocyte Esterase Small H Urine RBC >50 H Urine WBC >50 H Ur Epithelial Cells Negative Urine Crystals Negative Urine Bacteria Many Urine Mucus Negative Ur Culture Indicated? Yes Urine Glucose Negative Last Vital Signs Temp 37.3 C 09/06/19 15:03 Pulse 97 H 09/06/19 15:03 Resp 28 H 09/06/19 19:16 BP 133/82 09/06/19 15:03 Pulse Ox 98 09/06/19 19:00 COVID-19 Screening Have you,or household,traveled outside [place] in last 14 days?: No Had IN PERSON contact w/suspected or confirmed C-19 person: No
[2019-09-06] MEDS: Normal Saline Flush 10 ML SYR IVP (21:14)
[2019-09-06] MEDS: Dicyclomine 10 MG CAP 20 MG PO (21:15)
[2019-09-06] MEDS: levETIRAcetam 500 MG TAB PO (21:15)
[2019-09-06] MEDS: Lactated Ringers 1,000 ML 80 ML IV (21:16)
[2019-09-06] MEDS: Metoprolol 25 MG TAB 12.5 MG PO (21:16)
[2019-09-06] MEDS: Gabapentin 600 MG TAB 1200 MG PO (21:26)
[2019-09-06] MEDS: Prazosin 2 MG CAP PO (21:26)
[2019-09-07] VITALS (8 sets, daily range): BP systolic 99–128; BP diastolic 44–72; PULSE 56–76; RESP 18–20; TEMP 36.7–38.3; O2SAT 90–97
[2019-09-07] MEDS: Acetaminophen 325 MG TAB PO ×3 (04:16→20:19)
[2019-09-07] MEDS: Dicyclomine 10 MG CAP 20 MG PO ×3 (08:26→20:20)
[2019-09-07] MEDS: Clopidogrel 75 MG TAB PO (08:27)
[2019-09-07] MEDS: levETIRAcetam 500 MG TAB PO ×2 (08:27→20:21)
[2019-09-07] MEDS: Atorvastatin 10 MG TAB PO (08:27)
[2019-09-07 09:00] LABS: Lactate 1.1 mmol/L (0.6-1.4)
[2019-09-07 09:04] LABS: Abs Immature Grans 0.03 k/cumm (0.0-0.09); Absolute Basophil Count 0.02 k/cumm (0.0-0.2); Absolute Eosinophil Count 0.21 k/cumm (0.0-0.7); Absolute Lymphocyte Count 1.71 k/cumm (1.2-3.4); Absolute Neutrophil Count 6.73 k/cumm (1.2-6.7); Basophils % 0.2; Eosinophils % 2.1; HCT 36.7 % (40.0-50.0); HGB 11.9 g/dL (13.5-17.5); Immature Grans % 0.3 %; Lymphocytes % 17.4; Mean Corp. HGB Concentration 32.4 g/dL (32.0-36.0); Mean Corpuscular Hemoglobin 32.6 pg (27.0-33.0); Mean Corpuscular Volume 100.5 fL (80-95); Mean Platelet Volume 11.6 fL (8.0-11.0); Monocytes % 11.2; Neutrophils % 68.8; Platelet Count 152 x1000/uL (130-400); RBC 3.65 m/cumm (4.50-6.00); RBC Distribution Width 14.3 % (11.8-14.1)
[2019-09-07] MEDS: Normal Saline 500 ML IV (09:11)
[2019-09-07] MEDS: levoFLOXacin 750 MG/150 ML BAG 100 MG IVPB (09:12)
[2019-09-07 09:16] LABS: Anion Gap 5.9 mmol/L (3-11); BUN 25 mg/dL (7-18); CO2 29.1 mmol/L (21.0-32.0); CREATININE 1.04 mg/dL (0.70-1.30); Calcium 8.6 mg/dL (8.5-10.1); Chloride 104 mmol/L (98-107); Glucose 138 mg/dL (74-106); Sodium 139 mmol/L (136-145)
--- NOTE | 2019-09-07 09:28 | W.PM.PROGNOT ---
Date of Service Date of service: 09/07/19 Time of Service: 09:28 Assessment and Plan Assessment and plan (1) Pneumonia: Status: Acute Assessment and plan: max temp overnight 38.2, will broaden coverage to include aspiration and atypicals changing from ceftriaxone to levaquin and zosyn day 1. continue oxygen, updrafts, mucinex. white count and lactate normalized. MRSA nasal swab is positive but in setting of clinical improvement and no fevers today will hold vanco for now with low threshold to add on. sputum culture ordered. will repeat cxr in am. (2) UTI (urinary tract infection): Status: Acute Assessment and plan: cultures pending, should be covered with zosyn and levaquin day 1, (3) Neurogenic bladder: Status: Acute Assessment and plan: has suprapubic catheter in place, will need to swap out catheter after sensitivities verified (4) CVA (cerebral vascular accident): Status: Chronic Assessment and plan: stable, continue home medications, plavix and atorvastatin (5) COPD (chronic obstructive pulmonary disease): Status: Chronic Assessment and plan: stable at this time. (6) Diabetes: Status: Chronic Assessment and plan: check blood sugars ac/hs and coverage as needed. (7) HTN (hypertension): Status: Chronic Assessment and plan: blood pressures low this morning. will give fluid bolus, hold metoprolol today. (8) Seizure: Status: Chronic Assessment and plan: stable, continue keppra (9) DVT prophylaxis: Status: Acute Assessment and plan: enoxaparin daily teds, scd's (10) Discharge planning issues: Status: Acute Assessment and plan: back to [facility] and rehab when medically stable. Case and plan of care discussed with Dr. Gomez who is in agreement Subjective Subjective Patient reports: no new complaints, feels better, tolerating liquids well, tolerating a regular diet (with modifications), afebrile and fever; denies shortness of breath Interval history since last seen: denies cough or respiratory symptoms Exam Const General: cooperative, comfortable, no acute distress, frail appearing (elderly male of stated age, long white hair and facial hair) and ill appearing Nutritional Appearance: thin Orientation: alert, awake and oriented x3 HENMT Head: normal to inspection, normocephalic and atraumatic Mouth: oral mucosae normal Resp Effort & Inspection: normal respiratory effort and able to speak in complete sentences Auscultation: diminished lung sounds (throughout) Cardio Rate: regular rate Rhythm: regular rhythm GI Inspection: other (suprapubic catheter in place, draining cloudy urine, site clear) Palpation: soft Auscultation: normal bowel sounds General: other (see GI assessment) Skin General skin exam: dry skin Neuro General: patient alert, patient awake and patient oriented x3 Cognition: normal cognition Speech: other (slow to respond but appropriate, slightly slurred) Motor: strength not 5/5 throughout and strength abnormal (hemiparesis left, left hand contracted, extensive left foot drop) Extrem General: no pedal edema Right upper extremity: normal to inspection and full ROM Left upper extremity: ROM limited (flacid, hand contracted) Right lower extremity: normal to inspection and full ROM Left lower extremity: abnormal ROM (flacid, foot drop) Objective Objective Clinical Data: Abnormal lab results 09/06/19 09/06/19 09/06/19 Range/Units 16:15 16:15 16:15 WBC 13.59 H (4.4-10.8) k/cumm RBC 4.13 L (4.50-6.00) m/cumm Hgb 13.4 L (13.5-17.5) g/dL Hct (40.0-50.0) % MCV 98.8 H (80-95) fL RDW 14.4 H (11.8-14.1) % MPV 11.3 H (8.0-11.0) fL Absolute Neutrophils 10.93 H (1.2-6.7) k/cumm Absolute Lymphocytes 1.14 L (1.2-3.4) k/cumm Absolute Monocytes 1.41 H (0.11-0.7) k/cumm Carbon Dioxide 33.5 H (21.0-32.0) mmol/L BUN 32 H (7-18) mg/dL Creatinine 1.32 H (0.70-1.30) mg/dL Glucose 171 H D (74-106) mg/dL Lactate 2.1 H* (0.6-1.4) mmol/L Albumin 2.8 L (3.4-5.0) g/dL Urine Protein (Negative) mg/dL Urine Blood (Negative) Urine Nitrite (Negative) Ur Leukocyte Esterase (Negative) Urine RBC (0-2) HPF Urine WBC (0-5) HPF 09/06/19 09/07/19 Range/Units 17:00 08:48 WBC (4.4-10.8) k/cumm RBC 3.65 L (4.50-6.00) m/cumm Hgb 11.9 L (13.5-17.5) g/dL Hct 36.7 L (40.0-50.0) % MCV 100.5 H (80-95) fL RDW 14.3 H (11.8-14.1) % MPV 11.6 H (8.0-11.0) fL Absolute Neutrophils 6.73 H (1.2-6.7) k/cumm Absolute Lymphocytes (1.2-3.4) k/cumm Absolute Monocytes 1.10 H (0.11-0.7) k/cumm Carbon Dioxide (21.0-32.0) mmol/L BUN (7-18) mg/dL Creatinine (0.70-1.30) mg/dL Glucose (74-106) mg/dL Lactate (0.6-1.4) mmol/L Albumin (3.4-5.0) g/dL Urine Protein >=300 H (Negative) mg/dL Urine Blood Large H (Negative) Urine Nitrite Positive H (Negative) Ur Leukocyte Esterase Small H (Negative) Urine RBC >50 H (0-2) HPF Urine WBC >50 H (0-5) HPF Vital Signs Temperature 36.7 C 09/07/19 07:49 Temperature Source Tympanic 09/07/19 07:49 Pulse 56 L 09/07/19 07:49 Pulse Rhythm Regular 09/07/19 08:42 Respiratory Rate 18 09/07/19 07:49 Respiratory Effort 09/07/19 08:42 Respiratory Depth Normal 09/07/19 08:42 Respiratory Pattern Normal 09/07/19 08:42 Blood Pressure 99/72 L 09/07/19 07:49 Pulse Oximetry 90 L 09/07/19 07:49 Oxygen Delivery Method Nasal Cannula 09/07/19 07:49 Oxygen Flow Rate 3 09/07/19 07:49 Pain Level 4 09/06/19 23:56 Intake & Output 09/06/19 09/06/19 09/07/19 11:59 23:59 11:59 Intake Total 1150 / 1150 Output Total 400 / 400 Balance 1150 / 1150 -400 / -400 Weight 149.9 kg 65 kg Intake: IV 1150 / 1150 Output: Urine 400 / 400 Other: Urine Color Pale Urine Appearance Cloudy Cloudy Sediment Sediment Laboratory Results WBC 9.80 k/cumm (4.4-10.8) 09/07/19 08:48 RBC 3.65 m/cumm (4.50-6.00) L 09/07/19 08:48 Hgb 11.9 g/dL (13.5-17.5) L 09/07/19 08:48 Hct 36.7 % (40.0-50.0) L 09/07/19 08:48 MCV 100.5 fL (80-95) H 09/07/19 08:48 MCH 32.6 pg (27.0-33.0) 09/07/19 08:48 MCHC 32.4 g/dL (32.0-36.0) 09/07/19 08:48 RDW 14.3 % (11.8-14.1) H 09/07/19 08:48 Plt Count 152 x1000/uL (130-400) 09/07/19 08:48 MPV 11.6 fL (8.0-11.0) H 09/07/19 08:48 Immature Gran % 0.3 % 09/07/19 08:48 Neutrophils % 68.8 09/07/19 08:48 Lymphocytes % 17.4 09/07/19 08:48 Monocytes % 11.2 09/07/19 08:48 Eosinophils % 2.1 09/07/19 08:48 Basophils % 0.2 09/07/19 08:48 Absolute Neutrophils 6.73 k/cumm (1.2-6.7) H 09/07/19 08:48 Absolute Lymphocytes 1.71 k/cumm (1.2-3.4) 09/07/19 08:48 Absolute Monocytes 1.10 k/cumm (0.11-0.7) H 09/07/19 08:48 Absolute Eosinophils 0.21 k/cumm (0.0-0.7) 09/07/19 08:48 Absolute Basophils 0.02 k/cumm (0.0-0.2) 09/07/19 08:48 Sodium 140 mmol/L (136-145) 09/06/19 16:15 Potassium 4.5 mmol/L (3.5-5.1) 09/06/19 16:15 Chloride 101 mmol/L (98-107) 09/06/19 16:15 Carbon Dioxide 33.5 mmol/L (21.0-32.0) H 09/06/19 16:15 Anion Gap 5.5 mmol/L (3-11) 09/06/19 16:15 BUN 32 mg/dL (7-18) H 09/06/19 16:15 Creatinine 1.32 mg/dL (0.70-1.30) H 09/06/19 16:15 Estimated GFR/1.73 m2 52.88 (mL/min/1.73m2) 09/06/19 16:15 Glucose 171 mg/dL (74-106) H D 09/06/19 16:15 Lactate 1.1 mmol/L (0.6-1.4) 09/07/19 08:48 Calcium 8.6 mg/dL (8.5-10.1) 09/06/19 16:15 Total Bilirubin 0.7 mg/dL (0.2-1.0) 09/06/19 16:15 AST 20 U/L (15-37) 09/06/19 16:15 ALT 24 U/L (16-63) 09/06/19 16:15 Alkaline Phosphatase 61 U/L (46-116) 09/06/19 16:15 Troponin I < 0.05 ng/mL (<0.06) 09/06/19 18:42 Total Protein 7.9 g/dL (6.4-8.2) 09/06/19 16:15 Albumin 2.8 g/dL (3.4-5.0) L 09/06/19 16:15 Urine Color Yellow (Yellow) 09/06/19 17:00 Urine Clarity Cloudy (Clear) 09/06/19 17:00 Urine pH 5.5 (5-8) 09/06/19 17:00 Ur Specific [place] 1.025 (1.005-1.025) 09/06/19 17:00 Urine Protein >=300 mg/dL (Negative) H 09/06/19 17:00 Urine Ketones Negative mg/dL (Negative) 09/06/19 17:00 Urine Blood Large (Negative) H 09/06/19 17:00 Urine Nitrite Positive (Negative) H 09/06/19 17:00 Urine Bilirubin Negative (Negative) 09/06/19 17:00 Urine Urobilinogen 0.2 EU/dL (Up TO 0.2) 09/06/19 17:00 Ur Leukocyte Esterase Small (Negative) H 09/06/19 17:00 Urine RBC >50 HPF (0-2) H 09/06/19 17:00 Urine WBC >50 HPF (0-5) H 09/06/19 17:00 Ur Epithelial Cells Negative HPF (Negative) 09/06/19 17:00 Urine Crystals Negative HPF (Negative) 09/06/19 17:00 Urine Bacteria Many HPF (Negative) 09/06/19 17:00 Urine Mucus Negative (Negative) 09/06/19 17:00 Ur Culture Indicated? Yes 09/06/19 17:00 Urine Glucose Negative mg/dL (Negative) 09/06/19 17:00
[2019-09-07] MEDS: Enoxaparin 40 MG/0.4 ML SYR SC (10:19)
[2019-09-07 11:42] LABS: COVID-19 RT-PCR UVMMC Result Negative (Negative)
[2019-09-07] MEDS: PIPERACILLIN/TAZO 4.5 GM in Normal Saline 100 ML IVPB ×3 (12:12→22:50)
--- NOTE | 2019-09-07 12:19 | NUR.NOTE ---
Nursing Note: Negative Covid result reported to Eli LARSON clinical coordinator @ 1200
[2019-09-07] MEDS: Insulin Aspart 300 UNITS/3 ML PEN SC (12:27)
--- NOTE | 2019-09-07 13:35 | PDOC.CMIN ---
- If Service Date Differs Date of service: 09/07/19 Time of Service: 15:30 Care Management Initial Assess REASON FOR HOSPITALIZATION:: UTI/Pnemonia PAST MEDICAL HISTORY/PAST SURGICAL HISTORY:: Anxiety, BPH, COPD, CVA, Depression, diabetes, gout, HTN, PTSD, Seizure, carotid endarterectomy, hernia repair PREVIOUS FUNCTIONAL STATUS/SOCIAL/FAMILY SUPPORTS:: Luis Enrique resides at [facility]. Its son and sister in law reside in the [place] area. He requires assistance with most ADLs due to multiple CVAs. CURRENT FUNCTIONAL STATUS:: Luis Enrique is in isolation awaiting Covid testing results. ADVANCE DIRECTIVES:: DPOA: Sister in law, Chloe Forrest. Has patient been provided with info about the portal/API?: No Did the patient sign up for the portal?: No CODE STATUS:: DNR/DNI INSURANCE COVERAGE / FINANCIAL ISSUES:: Medicaid. Medicare CURRENT HOME/COMMUNITY SERVICES/EQUIPMENT:: Resident at [facility] PRIMARY CARE PHYSICIAN:: Eileen Webster POTENTIAL DISCHARGE NEEDS:: Coordinated return to [facility]. PATIENT/FAMILY EDUCATION NEEDS:: Review of discharge instructions, discuss Ask Me Three. ANTICIPATED BARRIERS TO DISCHARGE:: None identified. TRANSPORTATION:: W/C van or EMS. PLAN:: Luis Enrique will return to [facility] when ready per MD. He will transport via W/C van or EMS; per provider recommendation. CM continues to follow.
[2019-09-07] MEDS: Lactated Ringers 1,000 ML 80 ML IV (14:13)
[2019-09-07] MEDS: Lactobacillus Acidophilus CAP 1 CAP PO (17:26)
[2019-09-07] MEDS: Simethicone 80 MG CHEW PO (17:26)
[2019-09-07] MEDS: Normal Saline Flush 10 ML SYR IVP (17:29)
[2019-09-07] MEDS: Gabapentin 600 MG TAB 1200 MG PO (20:20)
[2019-09-07] MEDS: Metoprolol 25 MG TAB 12.5 MG PO (20:21)
[2019-09-07] MEDS: Prazosin 1 MG CAP 2 MG PO (20:40)
[2019-09-08 03:49] VITALS: BP 122/57; PULSE 65; RESP 18; TEMP 36.4; O2SAT 99
[2019-09-08] MEDS: PIPERACILLIN/TAZO 4.5 GM in Normal Saline 100 ML IVPB ×4 (04:25→21:53)
--- NOTE | 2019-09-08 06:41 | DI.RAD_ITS ---
EXAM: XR PORTABLE CHEST AP CLINICAL HISTORY: pneumonia TECHNIQUE: COMPARISON: CR,XR XR PORTABLE CHEST AP from 09/06/2019 FINDINGS: Heart is not enlarged. Mild presumed changes of pulmonary fibrosis again noted. No change September 05 film. No gross pleural effusion on this frontal film. IMPRESSION: No acute change.
--- NOTE | 2019-09-08 07:02 | DI.VRAD_ITS ---
PROCEDURE INFORMATION: Exam: XR Chest, 1 View Exam date and time: 09/08/2019 6:50 AM Age: 73 years old Clinical indication: Condition or disease; Other: Pneumonia TECHNIQUE: Imaging protocol: XR of the chest Views: 1 view. COMPARISON: CR XR PORTABLE CHEST AP 09/06/2019 3:55 PM FINDINGS: Tubes, catheters and devices: Monitoring leads project over the chest. Lungs: Mild hyperinflation. No consolidative pneumonia or overt alveolar edema. Persistent prominent interstitial markings, similar to previous. Stable appearance. Pleural space: No pleural effusions. No pneumothorax. Heart/Mediastinum: Cardiac size normal. Vasculature: Atherosclerotic calcification within a tortuous aorta. Bones/joints: Mild degenerative changes noted throughout the spine. Old left-sided rib fractures. IMPRESSION: Mild hyperinflation. No consolidative pneumonia or overt alveolar edema. Persistent prominent interstitial markings, similar to previous. Stable appearance. Dictated and Authenticated by: Luisito Huff MD. Ordering:RASHID Downing MD
[2019-09-08 07:15] VITALS: BP 110/69; PULSE 63; RESP 17; TEMP 37.2; O2SAT 98
[2019-09-08 08:35] VITALS: O2SAT 97
--- NOTE | 2019-09-08 08:35 | PT.INIE ---
Date of service: 09/08/19 Time of Service: 08:35 PT Notes Visit Reasons: UTI/PNEUMONIA Physical Therapy Inpatient Initial Evaluation Date: 09/08/2019 Referring Doctor: Salina Gomez NP PT Orders: PT CONSULT: Eval/Treat Precautions: Fall. Standard. Activity as tolerated. Patient Profile/Admitting Diagnosis: Luis Enrique is a 73-year-old male with past medical history significant for CVA who presented to the ED on 09/06/2019 chief presentation of having trouble waking up and dry heaves. Patient is diagnosed with UTI, PNA, AF, and neurogeninc bladder with referral to skilled PT services for limited mobility level. PMHX: Medical History (Updated 09/06/19 @ 19:44 by Luis Newberry MD) Anxiety (Chronic) BPH (benign prostatic hyperplasia) (Chronic) COPD (chronic obstructive pulmonary disease) (Chronic) CVA (cerebral vascular accident) (Chronic) left hemiparesis Depression (Chronic) Diabetes (Chronic) Gout (Chronic) HTN (hypertension) (Chronic) Neuromuscular disorder (Acute) bladder PTSD (post-traumatic stress disorder) (Acute) Seizure (Chronic) MARSHA MENDOZA AT [facility] BEEN 1+ YEAR SINCE ANY SEIZURE ACTIVITY Surgical History S/P carotid endarterectomy (Inactive) S/P hernia repair (Inactive) Social History/Home Situation: LTC at the [facility] since 2018. Requires assistance with all transfers tasks. Patient states that Vaughn, the PT at the SNF was just starting to work on him to improve his walking. Equipment Owned/DME: Has AFO on the L, diabetic shoes Subjective: Patient complains of whole body pain with the L UE/LE hurting more than the R. He states that he has an AFO and a pair of diabetic shoes that were left at the rehab. He states that his L ankle got twisted previously while transferring with somebody in the SNF. He reports feeling significantly better than he did yesterday. he was happy with his breakfast. Luis Enrique further states that since he broke his L hip previously and did not have surgery for it, it has hurt him since then. Objective: General Observation: Telemetry monitoring in place. Suprapubic catheter in place. Bilateral foot drop with L more affected than the R. Flaccid L UE/LE. L hand flexion contracture. 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 Mental Status: Alert and oriented x 4 Pain: Significant pain with weight-bearing and with movement, unquantified but patient moans in pain. Nurse aware of pain level. ROM: Right Upper Extremity: Shoulder Flexion allows up to 90 degrees. Shoulder abduction allows up to 90 degrees. Elbow flexion WFL. Wrist flexion WFL. Opening and closing of hand WFL. Left Upper Extremity: Flaccid L UE. Hand and finger flexors tight due to contracture. No active opening of hand seen. Right Lower Extremity: Hip flexion allows up to 20 degrees in supine. Hip abduction allows up to 10 degrees. Knee flexion allows up to 30 degrees. Ankle dorsiflexion about 20 degrees from fully platarflexed position. Ankle plantarflexion 20 degrees. Left Lower Extremity: Grossly 1/5 with L equinovarus deformity seen Strength: Right Upper Extremity: Shoulder flexors 3-/5. Shoulder abductors 3-/5. Elbow flexors 3/5. Elbow extensors 3/5. Ct Scan Technologist strong. Left Upper Extremity: 0/5 on L UE. Right Lower Extremity: Hip flexors 3-/5. Hip abductors 3-/5. Knee flexors 3-/5. Knee extensors 3-/5. Ankle dorsiflexors 2-/5. Ankle plantarflexors 2-/5. Left Lower Extremity: Grossly 1/5 on L LE Sensation: Intact as to pain and pressure on bilateral lower extremities. Bed Mobility/Transfers: Rolling moderate assist of 2 Supine to sit moderate assist of 2 Sit to supine moderate assist of 2 Sit to stand from bed moderate assist of 2 Stand to sit at bedside moderate assist of 2 Sit to stand from recliner chair maximum assist of 2 and minimal assist of a third caregiver Stand to sit onto recliner chair maximum assist of 2 and minimal assist of a third caregiver Bed to chair maximum assist of 2 and minimal assist of a third person Chair to bed maximum assist of 2 and minimal assist of a third person Gait: Non-ambulatory. Stand pivot-transfers only. Patient will require his L AFO and diabetic shoes for all transfer task performance. Balance: Static Sitting: Fair Dynamic Sitting: Fair Static Standing: Fair Dynamic Standing: Fair Special Tests: Mobility Limitations Standardized Measure [facility] AM-PAC 6 clicks Basic Mobility Inpatient Short Form: Raw Score: 7 CMS Score: 92% deficit Informed Consent/Education: Patient instructed in purpose of PT consult and plan of care. Assessment: Luis Enrique presents with significant mobility decline requiring extensive assist of 2 people and minimal assist of a third person for all mobility ADL performance. His mobility dependence was complicated by not having his L AFO and diabetic shoes, making the L hemiplegic ankle highly unstable and painful duirng transfers. Issue has been communicated with nurse and SENIOR HEALTH PHYSICS TECHNICIAN/office coordinator receptionist Jennifer to somehow work on procuring said devices to facilitate a smoother, less painful transfer. Patient presents with clinical signs and symptoms consistent with current/admitting diagnoses that have resulted to mobility limitations, gait instability, generalized weakness, and impairment of motor control as demonstrated by the following impairment level findings: 1. Decreased strength to B UE/LE major muscle groups due to hemiplegia 2. Impaired sitting/standing balance 3. Impaired activity tolerance Impairments are contributing to the following functional limitations: 1. Dependent bed mobility skills 2. Increased dependence with transfers 3. Inability to safely ambulate without assistive device and physical assistance 4. Increase completion time for mobility ADL performance 5. Increased fall risk 6. Inability to negotiate steps alone safely Patient is assessed as a [id number] high complexity based on the following: History: 73-year-old male with impairment level findings, functional limitations, and past medical history as indicated above Examination: Demonstrable impairment in strength, balance, and mobility level with underlying impairments and functional limitations as documented above Presentation:Evolving Decision Makin high complexity Goals: Goals X1 week 1. Supine-Sit minimal assist of 2 2. Sit-Supine minimal assist of 2 3. Sit-Stand minimal assist of 2 4. Stand-Sit minimal assist of 2 5. Bed-Chair minimal assist of 2 6. Chair-Bed minimal assist of 2 Plan of Care/Treatment Plan: 1-2x/day, 7 days/week x 1 week. Plan of care has been reviewed with the SHALLOT CLEANER providing the service under Physical Therapy direction. Initiate Physical Therapy intervention for strengthening, bed mobility, transfers, gait, stairs, balance training, use of assistive device. DISCHARGE RECOMMENDATIONS: Return to SNF when medically cleared. Requires L AFO and diabetic shoes to be collected from SNF and brought into here to maximize safety of transfer tasks. TREATMENT CODE/TIME: 74061 x 35 minutes beginning at 8:35 AM. Thank you for the opportunity to participate in the care of this patient. Oksana Mc PT, DPT, CLT [facility] [place], [place]
[2019-09-08] MEDS: Dicyclomine 10 MG CAP 20 MG PO ×3 (08:57→20:08)
[2019-09-08] MEDS: Clopidogrel 75 MG TAB PO (08:57)
[2019-09-08] MEDS: Lactobacillus Acidophilus CAP 1 CAP PO ×3 (08:57→16:24)
[2019-09-08] MEDS: Acetaminophen 325 MG TAB PO ×3 (08:57→17:32)
[2019-09-08] MEDS: Atorvastatin 10 MG TAB PO (08:57)
[2019-09-08] MEDS: levoFLOXacin 750 MG/150 ML BAG 100 MG IVPB (08:57)
[2019-09-08] MEDS: levETIRAcetam 500 MG TAB PO ×2 (08:57→20:08)
[2019-09-08] MEDS: Metoprolol 25 MG TAB 12.5 MG PO ×2 (08:58→20:07)
--- NOTE | 2019-09-08 10:00 | SP_ITS ---
Date of service: 09/08/19 Time of Service: 10:00 Subjective I've had this cough for 50 years. I got no trouble with the food, it goes down fine. I have trouble when it's dry though. I haven't had denture adhesive for about a week. Yea I aspirated on pills back near [place], they gave me a whole bunch at once and then I got pneumonia. ASSISTANT SALES DIRECTOR Charge Code: 16880 Clinical Swallowing Evaluation Objective Objective Helper Marble Finisher Goals: N/A Short Term Goals: N/A Assessment Background & Reason for Referral: Patient is a 73-year-old male with past medical history significant for seizure disorder, hypertension, diabetes, CVA with left-sided hemiplegia, COPD, anxiety, neurogenic bladder with suprapubic catheter, who presentedive f to the ER on 09/06/2019 with nausea, vomiting, tremor and had been slightly confused per documentation review; resides at [facility] with assistance provided. Patient has tested negative for COVID19, and recent chest xrays demonstrate no acute changes per documentation review. Referred for ASSISTANT SALES DIRECTOR evaluation given hx of aspiration pneumonia and recent question of aspiration with chest xray ordered, cough at baseline, currently on modified diet of 5- minced&moist solids with added gravy/sauces and thin liquids, pills in applesauce. Cognitive Status:alert, responsive, cooperative; oriented to person, place, time (required min cue for time and when next meal would be served, some processing delay for interpreting time via clock on wall, otherwise WFL) Factors affecting participation: No difficulties participating in evaluation; Impairment or difficulty noted related to cognitive status/mild processing delay Respiratory Function: On Supplemental Oxygen (3 L/min) during exam today Oral Mechanism/Oral Motor Examination Oral Hygiene WFL Dentition/gums WFL / Dentures present: upper and lower; lower dentures loose/ill-fitting Lips At rest: WFL Upon movement: Mild asymmetry upon protrusion and retraction on left side given left sided weakness Range of Motion: WFL Speed/Coordination - Mildly reduced Strength - WFL Tongue At rest: WFL Upon movement: Atypical mild deviation to left upon protrusion Range of Motion Lateralization WFL / Protrusion WFL / Retraction WFL Speed/Coordination - Mild deficit Strength - WFL Jaw At rest: WFL Upon movement: WFL Soft palate Unable to view during exam Respiration and Phonation Maximum Phonation Time [MPT] in seconds, on /a/: 8 seconds MPT Duration: Reduced Vocal Quality: WNL Loudness: WNL Respiratory Sufficiency and Coordination: Moderately impaired Peak Expiratory Cough/Flow Rate Testing Performed? No Oral Intake Posture/Positioning: Upright Self-Feeding/Level of Assistance: Independent in self-feeding Saliva Swallows: WNL Consistencies Tested: Solids: 5-Minced & Moist or Mechanically Altered/Ground, 4-Pureed/Extremely Thick Liquids: 0-Thin Liquids (via straw and cup sip/drink) If 0-Thin Liquids administered, was [place] Swallow Protocol performed? Yes Outcome: Pass Pills/Tablets/Capsules: None Tested during exam today; however patient reports no difficulties when provided 2 pills with applesauce this AM, confirmed with nursing Clinical Observations: Oral Phase Labial Seal: WFL Mastication: Impaired, suspect this is related to ill-fitting lower dentition paired with mild deficits in lingual speed/coordination Pharyngeal Phase WFL for all consistencies tested during exam today, however suspect at least partial pharyngeal timing/coordination deficit given patient report, cannot rule out pharyngeal deficit component completely at this time Esophageal Phase: WFL per patient report Endurance during meals: Fair IMPRESSIONS & PLAN Findings: Swallowing diagnosis: Oropharyngeal phase dysphagia as characterized by reduced lingual speed/coordination, impacting mastication of some solid foods, suspect at least partial pharyngeal timing/coordination deficits if provided increased volume and/or when consumed at increased rate per patient report, however not observed during exam today. Contributing Factors to Swallowing Impairment: Reduced oral coordination, mastication inefficiency also complicated by ill fitting dentition (lower dentures) Suspect impaired oral-pharyngeal transport and/or pharyngeal timing/coordination if provided large volume/increased rate of intake given respiratory deficits and effect on swallow-respiration cycle Impact on Safety and Functioning: Continued risk for development of aspiration pneumonia if adequate oral care not provided to reduce overall levels of oral bacteria possibly aspirated; cannot rule out presence of aspiration and/or possibility of silent aspiration at this time without objective swallowing instrumentation, however patient verbalized disinterest in further instrumental swallow testing, prefers food he is being given and is fine with this, reports he would not like to change current texture of foods being provided at this time. Instrumental Swallowing Assessment Indicated: No: Not recommended at time of this evaluation given verbalized goals from patient; Reassessment possibly indicated if patient goals of care change and/or change in status occurs Further Speech Language Pathology Treatment Indicated: No further acute ASSISTANT SALES DIRECTOR services warranted at this time; please feel free to consult [facility] ASSISTANT SALES DIRECTOR if further questions arise or re-consult is needed. Recommend ASSISTANT SALES DIRECTOR follow up at subacute rehab level to determine appropriate goals of care for patient in discharge environment related to patient wishes and texture modifications for solid foods, staff/caregiver education and training as appropriate. Discharge Plan: [facility] Rehab Potential is judged to be Good based on social and/or caregiver support, age, severity/complexity and history of respiratory symptoms. RECOMMENDATIONS Strategies/Adaptations/Assistive Equipment: Reduce auditory and/or visual distractions when eating Provide verbal and/or visual cues to use recommended strategies as needed; Small sips and bites when eating; Slow rate of intake; ensure recovery of RR prior to subsequent bite/sip Posture/Positioning Needs: Maintain upright position for all PO intake Diet Texture Modifications: Solids: 5-Minced&Moist, added moisture/extra gravy/sauces as needed Liquids: 0-Thin Liquids Medication Intake: pills whole in applesauce, only 1-2 at a time Patient/Caregiver/Staff Education: Described results of evaluation; Patient expressed understanding of evaluation and agreement with goals and treatment plan; Patient expressed understanding of safety precautions/feeding recommendations;caregivers/staff expressed understanding of safety precautions/feeding recommendations; Patient/caregivers require further education upon discharge ASSISTANT SALES DIRECTOR located denture adhesive and provided this to nursing staff for use prior to next meal, nursing staff demonstrated comprehension. Recommendations: Recommend continuing current diet while in acute care: Diet Texture Modifications: Solids: 5-Minced&Moist, added moisture/extra gravy/sauces as needed Liquids: 0-Thin Liquids Medication Intake: pills whole in applesauce, 1-2 at a time Strategies/Adaptations/Assistive Equipment: Reduce auditory and/or visual distractions when eating Provide verbal and/or visual cues to use recommended strategies as needed; Small sips and bites when eating; Slow rate of intake; ensure recovery of RR prior to subsequent bite/sip Posture/Positioning Needs: Maintain upright position for all PO intake Plan No further acute ASSISTANT SALES DIRECTOR services warranted at this time. Please feel free to consult [facility] ASSISTANT SALES DIRECTOR if further questions arise or re-consult is needed. Recommend ASSISTANT SALES DIRECTOR follow-up upon discharge to [facility] to determine appropriateness for solid texture upgrade and per motivational interview with patient; staff/caregiver education re: reduced oral coordination resulting in suspected pill dysphagia when provided more than 1-2 pills at a time in applesauce, cues for reducing rate/volume of intake as needed given respiratory compromise and effect on swallowing efficiency/safety, and overall liquid intake.
[2019-09-08 10:13] LABS: Absolute Basophil Count 0.02 k/cumm (0.0-0.2); Absolute Eosinophil Count 0.15 k/cumm (0.0-0.7); Absolute Lymphocyte Count 0.79 k/cumm (1.2-3.4); Absolute Monocyte Count 0.68 k/cumm (0.11-0.7); Absolute Neutrophil Count 4.13 k/cumm (1.2-6.7); Basophils % 0.3; Eosinophils % 2.6; HCT 31.2 % (40.0-50.0); HGB 10.1 g/dL (13.5-17.5); Lymphocytes % 13.7; Mean Corp. HGB Concentration 32.4 g/dL (32.0-36.0); Mean Corpuscular Hemoglobin 32.3 pg (27.0-33.0); Mean Corpuscular Volume 99.7 fL (80-95); Mean Platelet Volume 11.5 fL (8.0-11.0); Monocytes % 11.8; Neutrophils % 71.6; Platelet Count 158 x1000/uL (130-400); RBC 3.13 m/cumm (4.50-6.00); White Blood Cell Count 5.77 k/cumm (4.4-10.8)
--- NOTE | 2019-09-08 10:14 | PHA.REVIEW ---
Pharmacy Admission Review - Admission Clinical Review (Last Updated 09/06/19 @ 19:31 by Luis Newberry MD) DVT prophylaxis (Acute) Discharge planning issues (Acute) Pneumonia (Acute) UTI (urinary tract infection) (Acute) Atrial flutter (Acute) Neurogenic bladder (Acute) No Known Allergies Allergy (Unverified 09/06/19 17:45) Height 5 ft 5 in Weight 66.1 kg - Renal Dosing Renal Dosing: BUN 25 mg/dL (7-18) H 09/07/19 08:48 Creatinine 1.04 mg/dL (0.70-1.30) 09/07/19 08:48 Medications needing adjustments: Reviewed List of meds needing interventions: He is on the cusp of needing levofloxacin renally adjusted to q48h (if crcl <50), other meds ok - Anticoagulation Anticoagulation: Hgb 10.1 g/dL (13.5-17.5) L 09/08/19 10:00 Hct 31.2 % (40.0-50.0) L 09/08/19 10:00 Plt Count 158 x1000/uL (130-400) 09/08/19 10:00 Creatinine 1.04 mg/dL (0.70-1.30) 09/07/19 08:48 DVT Prohphylaxis: Reviewed Medications: Enoxaparin Therapeutic Anticoagulation: Reviewed - Opiate Usage Evaluate Pain Scale/Pains Meds: Reviewed Scheduled Bowel Reg ordered if on Opiates?: No (PRN) - Relevant Labs Sodium 139 mmol/L (136-145) 09/07/19 08:48 Potassium 4.0 mmol/L (3.5-5.1) 09/07/19 08:48 Chloride 104 mmol/L (98-107) 09/07/19 08:48 Electrolytes, C-Reactive P, ESR: Reviewed (WCB 5.77 (down from 13.59)) - DM Control DM Control: Glucose 138 mg/dL (74-106) H 09/07/19 08:48 Finger Stick Blood Glucose 122 Finger Stick Blood Glucose 122 Insulin Dosing: Reviewed (Aspart per SS, most recent BG is 252 -- cont. to monitor) - Heart Failure/MA Heart Failure/MA: Troponin I < 0.05 ng/mL (<0.06) 09/06/19 18:42 EF%, CHARLES's, B-Blockers, Diuretics: Reviewed - BP Control BP Control: Blood Pressure 110/69 Blood Pressure 122/57 Blood Pressure 102/59 If elevated: Reviewed - Qtc Review If Elevated: N/A - IV to PO Switch IV Medications: Reviewed - Home Meds Home Med List reviewed: Reviewed (Concurrent use of CLOPIDOGREL and CY METABOLIZED STATINS may result in decreased formation of clopidogrel active metabolite resulting in high on-treatment platelet reactivity., no other issues) Relevent Home Meds Not ordered & why?: metformin -- covered with aspart per SS - Current meds Current Medication Order Review: Reviewed
[2019-09-08 10:20] LABS: Anion Gap 6.4 mmol/L (3-11); BUN 16 mg/dL (7-18); CO2 29.6 mmol/L (21.0-32.0); CREATININE 1.08 mg/dL (0.70-1.30); Calcium 8.2 mg/dL (8.5-10.1); Chloride 101 mmol/L (98-107); Glucose 252 mg/dL (74-106); Magnesium 1.3 mg/dL (1.8-2.4); Sodium 137 mmol/L (136-145)
--- NOTE | 2019-09-08 11:07 | PTTR_ITS ---
Date of service: 09/08/19 Time of Service: 11:01 PT Notes Visit Reasons: UTI/PNEUMONIA Physical Therapy Inpatient Treatment Note Date: 09/08/2019 Referring Doctor: Salina Gomez NP PT Orders: PT CONSULT: Eval/Treat Precautions: Fall. Standard. Activity as tolerated. Subjective: Patient continues to complain of whole body pain with the L UE/LE hurting more than the R. He is agreeable to be moved back to bed from hos recliner chair. Objective: General Observation: Telemetry monitoring in place. Suprapubic catheter in place. Bilateral foot drop with L more affected than the R. Flaccid L UE/LE. L hand flexion contracture. 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 Mental Status: Alert and oriented x 4 Pain: Significant pain with weight-bearing and with movement, unquantified but patient moans in pain. Nurse aware of pain level. Bed Mobility/Transfers: Sit to supine moderate assist of 2 Sit to stand from recliner chair maximum assist of 2 and minimal assist of a third caregiver Recliner chair to bed maximum assist of 2 and minimal assist of a third person Gait: Not attempted due to no AFO on L and no orthopedic shoes. Stand pivot- transfers only. Patient will require his L AFO and diabetic shoes for all transfer task performance. Assessment: Luis Enrique presents with significant mobility decline requiring extensive assist of 2 people and minimal assist of a third person for all mobility ADL performance. His mobility dependence was complicated by not having his L AFO and diabetic shoes, making the L hemiplegic ankle highly unstable and painful during transfers. Issue has been communicated with nurse and WIRELESS CONSULTANT/office receptionist Jennifer to somehow work on procuring said devices to facilitate a smoother, less painful transfer. Plan of Care/Treatment Plan: 1-2x/day, 7 days/week x 1 week. Plan of care has been reviewed with the MOTOR VEHICLE OR CARAVAN SALESPERSON providing the service under Physical Therapy direction. Initiate Physical Therapy intervention for strengthening, bed mobility, transfers, gait, stairs, balance training, use of assistive device. DISCHARGE RECOMMENDATIONS: Return to SNF when medically cleared. Requires L AFO and diabetic shoes to be collected from SNF and brought into here to maximize safety of transfer tasks. TREATMENT CODE/TIME: 08104 x 18 minutes beginning at 11:01 AM.
[2019-09-08 11:57] VITALS: BP 120/42; PULSE 57; RESP 16; TEMP 36.6; O2SAT 97
[2019-09-08] MEDS: Insulin Aspart 300 UNITS/3 ML PEN SC (12:05)
[2019-09-08] MEDS: Enoxaparin 40 MG/0.4 ML SYR SC (12:05)
--- NOTE | 2019-09-08 12:58 | PGE_ITS ---
Date of Service Date of service: 09/08/19 Time of Service: 12:59 Assessment and Plan Assessment and plan (1) Pneumonia: Start date: 09/08/19 Start time: 13:00 Status: Acute Assessment and plan: Fever defervesced, afebrile overnight, coverage to include aspiration and atypicals, levaquin and zosyn day 2. continue oxygen, updrafts, mucinex. white count and lactate normalized. MRSA nasal swab is positive but in setting of clinical improvement and no fevers today will hold vanco for now with low threshold to add on. sputum culture ordered. CXR improved Will check procalcitonin in am. (2) UTI (urinary tract infection): Start date: 09/08/19 Start time: 13:02 Status: Acute Assessment and plan: cultures with NGTD, cover with zosyn and levaquin day 2, (3) Neurogenic bladder: Start date: 09/08/19 Start time: 13:04 Status: Acute Assessment and plan: has suprapubic catheter in place, will need to swap out catheter after sensitivities verified (4) CVA (cerebral vascular accident): Start date: 09/08/19 Start time: 13:06 Status: Chronic Assessment and plan: stable, continue home medications, plavix and a torvastatin Continue to work with PT (5) COPD (chronic obstructive pulmonary disease): Start date: 09/08/19 Start time: 13:06 Status: Chronic Assessment and plan: stable at this time. (6) Diabetes: Start date: 09/08/19 Start time: 13:07 Status: Chronic Assessment and plan: bgl in 200's will change to resistant and continue to monitor may need to add a low dose long acting if sugars continue to be in 200's (7) HTN (hypertension): Start date: 09/08/19 Start time: 13:08 Status: Chronic Assessment and plan: Normotensive not requiring any boluses at this time. Continue to monitor. (8) Seizure: Start date: 09/08/19 Start time: 13:10 Status: Chronic Assessment and plan: stable, continue keppra (9) DVT prophylaxis: Start date: 09/08/19 Start time: 13:10 Status: Acute Assessment and plan: enoxaparin daily teds, scd's (10) Discharge planning issues: Start date: 09/08/19 Start time: 13:10 Status: Acute Assessment and plan: back to [facility] and rehab when medically stable. Case and plan of care discussed with Dr. Gomez who is in agreement Subjective Subjective Patient reports: feels better Interval history since last seen: Working with PT upon evaluation. Sitting up in chair. AAOx3. Pain to touch with left side. LSC diminished. He denies CP, SOB. Exam Const General: cooperative, comfortable, no acute distress, frail appearing (elderly male of stated age, long white hair and facial hair) and ill appearing Nutritional Appearance: thin Orientation: alert, awake and oriented x3 HENMT Head: normal to inspection, normocephalic and atraumatic Mouth: oral mucosae normal Resp Effort & Inspection: normal respiratory effort and able to speak in complete sentences Auscultation: diminished lung sounds (throughout) Cardio Rate: regular rate Rhythm: regular rhythm GI Inspection: other (suprapubic catheter in place, draining cloudy urine, site clear) Palpation: soft Auscultation: normal bowel sounds General: other (see GI assessment) Skin General skin exam: dry skin Neuro General: patient alert, patient awake and patient oriented x3 Cognition: normal cognition Speech: other (slow to respond but appropriate, slightly slurred) Motor: strength not 5/5 throughout and strength abnormal (hemiparesis left, left hand contracted, extensive left foot drop) Extrem General: no pedal edema Right upper extremity: normal to inspection and full ROM Left upper extremity: ROM limited (flacid, hand contracted) Right lower extremity: normal to inspection and full ROM Left lower extremity: abnormal ROM (flacid, foot drop) Objective Objective Clinical Data: Abnormal lab results 09/08/19 09/08/19 Range/Units 10:00 10:00 RBC 3.13 L (4.50-6.00) m/cumm Hgb 10.1 L (13.5-17.5) g/dL Hct 31.2 L (40.0-50.0) % MCV 99.7 H (80-95) fL MPV 11.5 H (8.0-11.0) fL Absolute Lymphocytes 0.79 L (1.2-3.4) k/cumm Glucose 252 H D (74-106) mg/dL Calcium 8.2 L (8.5-10.1) mg/dL Magnesium 1.3 L (1.8-2.4) mg/dL Vital Signs Temperature 36.6 C 09/08/19 11:57 Temperature Source Tympanic 09/08/19 11:57 Pulse 57 L 09/08/19 11:57 Pulse Rhythm Regular 09/08/19 02:55 Respiratory Rate 16 09/08/19 11:57 Respiratory Effort 09/08/19 02:55 Respiratory Depth Normal 09/08/19 02:55 Respiratory Pattern Normal 09/08/19 02:55 Blood Pressure 120/42 L 09/08/19 11:57 Pulse Oximetry 97 09/08/19 11:57 Oxygen Delivery Method Nasal Cannula 09/08/19 11:57 Oxygen Flow Rate 3 09/08/19 11:57 Pain Level 0 09/08/19 11:57 Intake & Output 09/07/19 09/08/19 09/08/19 23:59 11:59 23:59 Intake Total 540 / 2142 430 / 430 Output Total 1875 / 1875 Balance 540 / 1742 -1445 / -1445 Weight 66.1 kg Intake: IV 300 / 1902 110 / 110 Oral 240 / 240 320 / 320 Output: Urine 187 / 1875 Other: Urine Color Pale Yellow Urine Appearance Clear Clear Laboratory Results WBC 5.77 k/cumm (4.4-10.8) D 09/08/19 10:00 RBC 3.13 m/cumm (4.50-6.00) L 09/08/19 10:00 Hgb 10.1 g/dL (13.5-17.5) L 09/08/19 10:00 Hct 31.2 % (40.0-50.0) L 09/08/19 10:00 MCV 99.7 fL (80-95) H 09/08/19 10:00 MCH 32.3 pg (27.0-33.0) 09/08/19 10:00 MCHC 32.4 g/dL (32.0-36.0) 09/08/19 10:00 RDW 14.0 % (11.8-14.1) 09/08/19 10:00 Plt Count 158 x1000/uL (130-400) 09/08/19 10:00 MPV 11.5 fL (8.0-11.0) H 09/08/19 10:00 Immature Gran % 0.0 % 09/08/19 10:00 Neutrophils % 71.6 09/08/19 10:00 Lymphocytes % 13.7 09/08/19 10:00 Monocytes % 11.8 09/08/19 10:00 Eosinophils % 2.6 09/08/19 10:00 Basophils % 0.3 09/08/19 10:00 Absolute Neutrophils 4.13 k/cumm (1.2-6.7) 09/08/19 10:00 Absolute Lymphocytes 0.79 k/cumm (1.2-3.4) L 09/08/19 10:00 Absolute Monocytes 0.68 k/cumm (0.11-0.7) 09/08/19 10:00 Absolute Eosinophils 0.15 k/cumm (0.0-0.7) 09/08/19 10:00 Absolute Basophils 0.02 k/cumm (0.0-0.2) 09/08/19 10:00 Sodium 137 mmol/L (136-145) 09/08/19 10:00 Potassium 4.0 mmol/L (3.5-5.1) 09/08/19 10:00 Chloride 101 mmol/L (98-107) 09/08/19 10:00 Carbon Dioxide 29.6 mmol/L (21.0-32.0) 09/08/19 10:00 Anion Gap 6.4 mmol/L (3-11) 09/08/19 10:00 BUN 16 mg/dL (7-18) D 09/08/19 10:00 Creatinine 1.08 mg/dL (0.70-1.30) 09/08/19 10:00 Estimated GFR/1.73 m2 >= 60.00 (mL/min/1.73m2) 09/08/19 10:00 Glucose 252 mg/dL (74-106) H D 09/08/19 10:00 Lactate 1.1 mmol/L (0.6-1.4) 09/07/19 08:48 Calcium 8.2 mg/dL (8.5-10.1) L 09/08/19 10:00 Magnesium 1.3 mg/dL (1.8-2.4) L 09/08/19 10:00 Total Bilirubin 0.7 mg/dL (0.2-1.0) 09/06/19 16:15 AST 20 U/L (15-37) 09/06/19 16:15 ALT 24 U/L (16-63) 09/06/19 16:15 Alkaline Phosphatase 61 U/L (46-116) 09/06/19 16:15 Troponin I < 0.05 ng/mL (<0.06) 09/06/19 18:42 Total Protein 7.9 g/dL (6.4-8.2) 09/06/19 16:15 Albumin 2.8 g/dL (3.4-5.0) L 09/06/19 16:15 Urine Color Yellow (Yellow) 09/06/19 17:00 Urine Clarity Cloudy (Clear) 09/06/19 17:00 Urine pH 5.5 (5-8) 09/06/19 17:00 Ur Specific [place] 1.025 (1.005-1.025) 09/06/19 17:00 Urine Protein >=300 mg/dL (Negative) H 09/06/19 17:00 Urine Ketones Negative mg/dL (Negative) 09/06/19 17:00 Urine Blood Large (Negative) H 09/06/19 17:00 Urine Nitrite Positive (Negative) H 09/06/19 17:00 Urine Bilirubin Negative (Negative) 09/06/19 17:00 Urine Urobilinogen 0.2 EU/dL (Up TO 0.2) 09/06/19 17:00 Ur Leukocyte Esterase Small (Negative) H 09/06/19 17:00 Urine RBC >50 HPF (0-2) H 09/06/19 17:00 Urine WBC >50 HPF (0-5) H 09/06/19 17:00 Ur Epithelial Cells Negative HPF (Negative) 09/06/19 17:00 Urine Crystals Negative HPF (Negative) 09/06/19 17:00 Urine Bacteria Many HPF (Negative) 09/06/19 17:00 Urine Mucus Negative (Negative) 09/06/19 17:00 Ur Culture Indicated? Yes 09/06/19 17:00 Urine Glucose Negative mg/dL (Negative) 09/06/19 17:00 COVID-19 PCR Negative (Negative) 09/06/19 18:42 Nasopharyn COVID-19 PCR Not Applicable 09/06/19 18:42 Ref Test Perform Site [facility] lab 09/06/19 18:42
[2019-09-08] MEDS: Docusate Sodium 100 MG CAP PO (13:31)
[2019-09-08] MEDS: Magnesium Oxide 400 MG TAB PO (13:32)
[2019-09-08] MEDS: MAGNESIUM SULFATE 4 GM/100 ML BAG IVPB (13:32)
--- NOTE | 2019-09-08 13:40 | NUR.NOTE ---
Nursing Note: Nicotine patch found on left chest, 7mg. no order for patch in APR. Patch removed
[2019-09-08 15:20] VITALS: BP 135/56; PULSE 64; RESP 17; TEMP 36; O2SAT 94
--- NOTE | 2019-09-08 17:12 | PDOC.CMPRO ---
- If Service Date Differs Date of service: 09/08/19 Time of Service: 17:13 Care Management Progress Note S/O: Luis Enrique was lying in bed when CM met with him. He reported that he is doing well. He stated that he is very happy with his care at [facility], and that everyone is very attentive to his needs. He stated that he 'feels secure' here. He will return to [facility] when medically stable. CM will continue to follow. A: Luis Enrique is a 73 year old male admitted to [facility] on 09/06/19 with UTI/Pneumonia. P: Anticipate Luis Enrique will return to [facility] when medically cleared. He will transport via w/c van vs ambulance. He may need a new Covid swab if he stays past 09/09/19, as well as a Covid screening, per H & R requirements. CM will continue to follow and support discharge planning considerations.
[2019-09-08 20:05] VITALS: BP 136/65; PULSE 68; RESP 17; TEMP 36.1; O2SAT 95
[2019-09-08] MEDS: Prazosin 1 MG CAP 2 MG PO (21:53)
[2019-09-08] MEDS: Gabapentin 600 MG TAB 1200 MG PO (21:53)
[2019-09-09] VITALS (10 sets, daily range): BP systolic 108–152; BP diastolic 40–75; PULSE 57–72; RESP 15–24; TEMP 35.3–36.5; O2SAT 92–96
[2019-09-09] MEDS: PIPERACILLIN/TAZO 4.5 GM in Normal Saline 100 ML IVPB ×4 (04:03→21:43)
[2019-09-09 07:32] LABS: Abs Immature Grans 0.01 k/cumm (0.0-0.09); Absolute Basophil Count 0.02 k/cumm (0.0-0.2); Absolute Eosinophil Count 0.23 k/cumm (0.0-0.7); Absolute Lymphocyte Count 1.05 k/cumm (1.2-3.4); Absolute Monocyte Count 0.66 k/cumm (0.11-0.7); Absolute Neutrophil Count 3.52 k/cumm (1.2-6.7); Basophils % 0.4; Eosinophils % 4.2; HCT 34.4 % (40.0-50.0); HGB 11.2 g/dL (13.5-17.5); Immature Grans % 0.2 %; Lymphocytes % 19.1; Mean Corp. HGB Concentration 32.6 g/dL (32.0-36.0); Mean Corpuscular Hemoglobin 32.1 pg (27.0-33.0); Mean Corpuscular Volume 98.6 fL (80-95); Mean Platelet Volume 11.8 fL (8.0-11.0); Neutrophils % 64.1; Platelet Count 146 x1000/uL (130-400); RBC 3.49 m/cumm (4.50-6.00); RBC Distribution Width 13.9 % (11.8-14.1); White Blood Cell Count 5.49 k/cumm (4.4-10.8)
[2019-09-09 07:38] LABS: Anion Gap 7.6 mmol/L (3-11); BUN 16 mg/dL (7-18); CO2 28.4 mmol/L (21.0-32.0); CREATININE 0.98 mg/dL (0.70-1.30); Calcium 8.6 mg/dL (8.5-10.1); Chloride 105 mmol/L (98-107); Glucose 115 mg/dL (74-106); Potassium 4.4 mmol/L (3.5-5.1); Sodium 141 mmol/L (136-145)
[2019-09-09] MEDS: Dicyclomine 10 MG CAP 20 MG PO ×3 (08:10→20:03)
[2019-09-09] MEDS: Atorvastatin 10 MG TAB PO (08:10)
[2019-09-09] MEDS: Acetaminophen 325 MG TAB PO (08:10)
[2019-09-09] MEDS: Clopidogrel 75 MG TAB PO (08:10)
[2019-09-09] MEDS: levoFLOXacin 750 MG/150 ML BAG 100 MG IVPB (08:11)
[2019-09-09] MEDS: levETIRAcetam 500 MG TAB PO ×2 (08:11→20:03)
[2019-09-09] MEDS: Lactobacillus Acidophilus CAP 1 CAP PO ×3 (08:11→17:00)
[2019-09-09] MEDS: Metoprolol 25 MG TAB 12.5 MG PO ×2 (08:12→20:02)
[2019-09-09 09:19] LABS: Bilirubin Negative (Negative); Blood Small (Negative); Clarity Sl Cloudy (Clear); Glucose Negative (Negative); Ketones Negative (Negative); Leukocyte Esterase Small (Negative); Nitrite Negative (Negative); Urobilinogen 0.2 EU/dL (Up TO 0.2); pH 6.5 (5-8)
[2019-09-09 09:28] LABS: Bacteria Many HPF (Negative); C & S Indicated? Yes; WBC >50 HPF (0-5)
[2019-09-09] MEDS: Enoxaparin 40 MG/0.4 ML SYR SC (10:56)
--- NOTE | 2019-09-09 11:55 | PT.INTREAT ---
Date of service: 09/09/19 Time of Service: 11:55 PT Notes Visit Reasons: UTI/PNEUMONIA Physical Therapy Inpatient Treatment Note Date: 09/09/2019 Referring Doctor: Salina Gomez NP PT Orders: PT CONSULT: Eval/Treat Precautions: Fall. Standard. Activity as tolerated. Subjective: Patient continues to complain of whole body pain with the L UE/LE hurting more than the R. He is agreeable to doing bed level exercises and refused getting out of bed due to pain and fatigue from getting all cleaned up. Objective: General Observation: Telemetry monitoring in place. Suprapubic catheter in place. Bilateral foot drop with L more affected than the R. Flaccid L UE/LE. L hand flexion contracture. 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 Mental Status: Alert and oriented x 4 Pain: 5/10 mostly in B legs with movement THERA EX: Tolerated low intensity bed level exercises consisting of ankle pumps mostly on the R as L DF is absent, gluteal sets x 10, quadrcips sets x 10, hip abduction x 5 only due to c/o pain. Adequate rests were needed in between each exercise due to pain and fatigue. Assessment: Luis Enrique continues to present with significant mobility decline requiring extensive assist of 2 people and minimal assist of a third person for all mobility ADL performance. He will require premedication for pain will be needed prior to transfer activity. Plan of Care/Treatment Plan: 1-2x/day, 7 days/week x 1 week. Plan of care has been reviewed with the BLANKING MACHINE OPERATOR providing the service under Physical Therapy direction. Initiate Physical Therapy intervention for strengthening, bed mobility, transfers, gait, stairs, balance training, use of assistive device. DISCHARGE RECOMMENDATIONS: Return to SNF when medically cleared. Requires L AFO and diabetic shoes to be collected from SNF and brought into here to maximize safety of transfer tasks. TREATMENT CODE/TIME: 79640 x 10 minutes beginning at 11:55 AM.
[2019-09-09 11:58] LABS: Procalcitonin 0.1 ng/mL
[2019-09-09] MEDS: Insulin Aspart 300 UNITS/3 ML PEN SC (12:19)
--- NOTE | 2019-09-09 14:58 | W.INDIABCONS ---
Date of service: 09/09/19 Time of Service: 14:58 Diabetes Inpatient Consult DESCRIPTION/ASSESSMENT: Received consult for Diabetic Inpatient Education. Pt admitted from SNF with UTI and PNA. PMH: COPD, HTN, DM, CVA, Neurogenic bladder. BMI wnl for age. Following Diabetic Minced and Moist Diet with > 75% intake of meals. Blood sugars well controlled in house, recent A1c: 6.7% indicates adequate blood sugar control at SNF. Meds include asparate SS 8, noon, 5 p. Jairo is knowledgeable about diabetes and follows diabetic diet at SNF. At this time, current insulin regime managing diabetes well. Skin intact. Poor dentition, current diet texture appropriate. Estimated Needs: [id number] kcal, 66-80 g protein, 2000 ml fluid. INTERVENTION: non needed PLAN: continue current diet and insulin regime to manage IDDM. will follow Time Spent in Nutritional Counseling and Treatment: 15 min
--- NOTE | 2019-09-09 15:13 | PGE_ITS ---
Date of Service Date of service: 09/09/19 Time of Service: 15:13 Assessment and Plan Assessment and plan (1) UTI (urinary tract infection): Start date: 09/09/19 Start time: 15:20 Status: Acute Assessment and plan: BC NGTD, however uc resistant to levaquin, sensitive to zosyng continue cover with zosyn, this will cover both urine and PNA. (2) Pneumonia: Start date: 09/09/19 Start time: 15:18 Status: Acute Assessment and plan: Continues to be afebrile, levaquin dcd, zosyn day 3. continue oxygen, updrafts, mucinex. white count and lactate normalized. BC-NGTD sputum culture ordered not collected at this time. Add acapella Procal 0.1 (3) Neurogenic bladder: Start date: 09/09/19 Start time: 15:22 Status: Acute Assessment and plan: has suprapubic catheter in place, will need to swap out catheter after sensitivities verified (4) CVA (cerebral vascular accident): Start date: 09/09/19 Start time: 15:22 Status: Chronic Assessment and plan: stable, continue home medications, plavix and atorvastatin Continue to work with PT (5) COPD (chronic obstructive pulmonary disease): Start date: 09/09/19 Start time: 15:23 Status: Chronic Assessment and plan: stable at this time. (6) Diabetes: Start date: 09/09/19 Start time: 15:23 Status: Chronic Assessment and plan: bgl in 200's this afternoon, was in low 100's this am, will add lantus 8 units daily and monitor bgl. (7) HTN (hypertension): Start date: 09/09/19 Start time: 15:25 Status: Chronic Assessment and plan: Normotensive not requiring any boluses at this time. Continue to monitor. (8) Hypomagnesemia: Start date: 09/09/19 Start time: 15:25 Status: Acute Assessment and plan: Was 1.3 yesterday today 2.0 will monitor mag level (9) Seizure: Start date: 09/09/19 Start time: 15:25 Status: Chronic Assessment and plan: stable, continue keppra (10) DVT prophylaxis: Start date: 09/09/19 Start time: 15:25 Status: Acute Assessment and plan: enoxaparin daily teds, scd's (11) Discharge planning issues: Start date: 09/09/19 Start time: 15:25 Status: Acute Assessment and plan: back to [facility] and rehab when medically stable. Continues to require inpatient care. Case and plan of care discussed with Dr. Gomez who is in agreement Subjective Subjective Patient reports: no new complaints Interval history since last seen: Symptoms improving. Weaning off oxygen. Denies CP, SOB, N/V/D Exam Narrative Exam Narrative: Const: Elderly gentlemen pale, AAOx3 with left side deficit from previous CVA lying in bed, relaxing, answer questions appropriately. Eyes: PERRLA, EOMI Resp: diminished, Cardio: RRR GI: abd soft nontender Extrem: left side flaccid Objective Objective Clinical Data: Abnormal lab results 09/09/19 09/09/19 09/09/19 Range/Units 06:50 06:50 09:00 RBC 3.49 L (4.50-6.00) m/cumm Hgb 11.2 L (13.5-17.5) g/dL Hct 34.4 L (40.0-50.0) % MCV 98.6 H (80-95) fL MPV 11.8 H (8.0-11.0) fL Absolute Lymphocytes 1.05 L (1.2-3.4) k/cumm Glucose 115 H D (74-106) mg/dL Urine Blood Small H (Negative) Ur Leukocyte Esterase Small H (Negative) Urine WBC >50 H (0-5) HPF Vital Signs Temperature 35.5 C L 09/09/19 11:49 Temperature Source Tympanic 09/09/19 11:49 Pulse 57 L 09/09/19 11:49 Pulse Rhythm Regular 09/09/19 14:45 Respiratory Rate 15 09/09/19 11:49 Respiratory Effort 09/09/19 14:45 Respiratory Depth Shallow 09/09/19 14:45 Respiratory Pattern Normal 09/09/19 14:45 Blood Pressure 124/40 L 09/09/19 11:49 Pulse Oximetry 95 09/09/19 11:49 Oxygen Delivery Method Nasal Cannula 09/09/19 11:49 Oxygen Flow Rate 3 09/09/19 11:49 Pain Level 0 09/09/19 11:49 Intake & Output 09/08/19 09/09/19 09/09/19 23:59 11:59 23:59 Intake Total 1640 / 2220 380 / 620 240 / 620 Output Total 2500 / 4375 300 / 1200 900 / 1200 Balance -860 / -2155 80 / -580 -660 / -580 Weight 66.7 kg Intake: IV 1400 / 1660 100 / 100 Oral 240 / 560 280 / 520 240 / 520 Output: Urine 2500 / 4375 300 / 1200 900 / 1200 Other: Urine Color Yellow Yellow Yellow Urine Appearance Clear Clear Clear Urine Odor Normal Strong Normal Stool Size Large Stool Characteristics Formed Brown Voiding Methods Indwelling Catheter Indwelling Catheter Indwelling Catheter Laboratory Results WBC 5.49 k/cumm (4.4-10.8) 09/09/19 06:50 RBC 3.49 m/cumm (4.50-6.00) L 09/09/19 06:50 Hgb 11.2 g/dL (13.5-17.5) L 09/09/19 06:50 Hct 34.4 % (40.0-50.0) L 09/09/19 06:50 MCV 98.6 fL (80-95) H 09/09/19 06:50 MCH 32.1 pg (27.0-33.0) 09/09/19 06:50 MCHC 32.6 g/dL (32.0-36.0) 09/09/19 06:50 RDW 13.9 % (11.8-14.1) 09/09/19 06:50 Plt Count 146 x1000/uL (130-400) 09/09/19 06:50 MPV 11.8 fL (8.0-11.0) H 09/09/19 06:50 Immature Gran % 0.2 % 09/09/19 06:50 Neutrophils % 64.1 09/09/19 06:50 Lymphocytes % 19.1 09/09/19 06:50 Monocytes % 12.0 09/09/19 06:50 Eosinophils % 4.2 09/09/19 06:50 Basophils % 0.4 09/09/19 06:50 Absolute Neutrophils 3.52 k/cumm (1.2-6.7) 09/09/19 06:50 Absolute Lymphocytes 1.05 k/cumm (1.2-3.4) L 09/09/19 06:50 Absolute Monocytes 0.66 k/cumm (0.11-0.7) 09/09/19 06:50 Absolute Eosinophils 0.23 k/cumm (0.0-0.7) 09/09/19 06:50 Absolute Basophils 0.02 k/cumm (0.0-0.2) 09/09/19 06:50 Sodium 141 mmol/L (136-145) 09/09/19 06:50 Potassium 4.4 mmol/L (3.5-5.1) 09/09/19 06:50 Chloride 105 mmol/L (98-107) 09/09/19 06:50 Carbon Dioxide 28.4 mmol/L (21.0-32.0) 09/09/19 06:50 Anion Gap 7.6 mmol/L (3-11) 09/09/19 06:50 BUN 16 mg/dL (7-18) 09/09/19 06:50 Creatinine 0.98 mg/dL (0.70-1.30) 09/09/19 06:50 Estimated GFR/1.73 m2 >= 60.00 (mL/min/1.73m2) 09/09/19 06:50 Glucose 115 mg/dL (74-106) H D 09/09/19 06:50 Lactate 1.1 mmol/L (0.6-1.4) 09/07/19 08:48 Calcium 8.6 mg/dL (8.5-10.1) 09/09/19 06:50 Magnesium 2.0 mg/dL (1.8-2.4) 09/09/19 06:50 Total Bilirubin 0.7 mg/dL (0.2-1.0) 09/06/19 16:15 AST 20 U/L (15-37) 09/06/19 16:15 ALT 24 U/L (16-63) 09/06/19 16:15 Alkaline Phosphatase 61 U/L (46-116) 09/06/19 16:15 Troponin I < 0.05 ng/mL (<0.06) 09/06/19 18:42 Total Protein 7.9 g/dL (6.4-8.2) 09/06/19 16:15 Albumin 2.8 g/dL (3.4-5.0) L 09/06/19 16:15 Procalcitonin 0.1 ng/mL 09/09/19 11:01 Urine Color Yellow (Yellow) 09/09/19 09:00 Urine Clarity Sl cloudy (Clear) 09/09/19 09:00 Urine pH 6.5 (5-8) 09/09/19 09:00 Ur Specific [place] 1.020 (1.005-1.025) 09/09/19 09:00 Urine Protein Negative mg/dL (Negative) 09/09/19 09:00 Urine Ketones Negative mg/dL (Negative) 09/09/19 09:00 Urine Blood Small (Negative) H 09/09/19 09:00 Urine Nitrite Negative (Negative) 09/09/19 09:00 Urine Bilirubin Negative (Negative) 09/09/19 09:00 Urine Urobilinogen 0.2 EU/dL (Up TO 0.2) 09/09/19 09:00 Ur Leukocyte Esterase Small (Negative) H 09/09/19 09:00 Urine RBC Not Applicable 09/09/19 09:00 Urine WBC >50 HPF (0-5) H 09/09/19 09:00 Ur Epithelial Cells Not Applicable 09/09/19 09:00 Urine Crystals Not Applicable 09/09/19 09:00 Urine Bacteria Many HPF (Negative) 09/09/19 09:00 Urine Mucus Not Applicable 09/09/19 09:00 Ur Culture Indicated? Yes 09/09/19 09:00 Urine Glucose Negative mg/dL (Negative) 09/09/19 09:00 COVID-19 PCR Negative (Negative) 09/06/19 18:42 Nasopharyn COVID-19 PCR Not Applicable 09/06/19 18:42 Ref Test Perform Site [facility] lab 09/06/19 18:42
--- NOTE | 2019-09-09 15:56 | W.UROLOGYCON ---
Date of service: 09/09/19 Time of Service: 15:56 Assessment and Plan Assessment and plan (1) Neurogenic bladder: Status: Acute Assessment and plan: He has improved clinically with Levaquin. His urine culture was resistant to Levaquin however, so I suspect his initial illness was more related to his pneumonia. I do not think I would specifically treat his bacteriuria, but if the Zosyn will cover both urine and pneumonia, it sounds like an ideal choice of antibiotic. I had previously recommended that the patient be given a trial of Myrbetriq 50 mg daily to try to cut down on his bladder spasms and leakage through the urethra. The patient does not recall having been started on this medication, so I will order it for him while he is here in the hospital. History of Present Illness History of Present Illness Chief Complaint: Neurogenic bladder Narrative: This is a 73-year-old gentleman who has a history of a neurogenic bladder. He is currently managed with an indwelling suprapubic tube. He continues to have bladder spasms and some leakage through the urethra. He is currently admitted with pneumonia. As expected with chronic indwelling catheters, his urine culture does show bacterial growth. I have been asked to change his catheter. [facility] Medical History (Updated 09/09/19 @ 15:25 by Cyn Norton NP) Anxiety (Chronic) BPH (benign prostatic hyperplasia) (Chronic) COPD (chronic obstructive pulmonary disease) (Chronic) CVA (cerebral vascular accident) (Chronic) left hemiparesis Depression (Chronic) Diabetes (Chronic) Gout (Chronic) HTN (hypertension) (Chronic) Neuromuscular disorder (Acute) bladder PTSD (post-traumatic stress disorder) (Acute) Seizure (Chronic) PTViridiana MENDOZA RN AT &R BEEN 1+ YEAR SINCE ANY SEIZURE ACTIVITY Surgical History S/P carotid endarterectomy (Inactive) S/P hernia repair (Inactive) Social History Smoking/Tobacco Use Status: Former Tobacco Use Alcohol Intake: former Substance use type: does not use and marijuana Details: Last Marijuana use: October 2018. Do you feel safe at home: Yes Exam Narrative Exam Narrative: He appears chronically ill. He does not appear septic or toxic His vital signs are documented elsewhere He is awake and alert Results Last Vital Signs Temp 36.0 C L 09/09/19 15:25 Pulse 57 L 09/09/19 15:25 Resp 17 09/09/19 15:25 BP 128/56 L 09/09/19 15:25 Pulse Ox 93 L 09/09/19 15:25 Labs Result diagrams: 09/09/19 06:50 09/09/19 06:50 Labs: Laboratory Results - last 24 hr 09/09/19 09/09/19 09/09/19 06:50 06:50 06:50 WBC 5.49 RBC 3.49 L Hgb 11.2 L Hct 34.4 L MCV 98.6 H MCH 32.1 MCHC 32.6 RDW 13.9 Plt Count 146 MPV 11.8 H Immature Gran % 0.2 Neutrophils % 64.1 Lymphocytes % 19.1 Monocytes % 12.0 Eosinophils % 4.2 Basophils % 0.4 Absolute Neutrophils 3.52 Absolute Lymphocytes 1.05 L Absolute Monocytes 0.66 Absolute Eosinophils 0.23 Absolute Basophils 0.02 Sodium 141 Potassium 4.4 Chloride 105 Carbon Dioxide 28.4 Anion Gap 7.6 BUN 16 Creatinine 0.98 Estimated GFR/1.73 m2 >= 60.00 Glucose 115 H D Calcium 8.6 Magnesium 2.0 Procalcitonin Cancelled Urine Color Urine Clarity Urine pH Ur Specific [place] Urine Protein Urine Ketones Urine Blood Urine Nitrite Urine Bilirubin Urine Urobilinogen Ur Leukocyte Esterase Urine RBC Urine WBC Ur Epithelial Cells Urine Crystals Urine Bacteria Urine Mucus Ur Culture Indicated? Urine Glucose 09/09/19 09/09/19 09:00 11:01 WBC RBC Hgb Hct MCV MCH MCHC RDW Plt Count MPV Immature Gran % Neutrophils % Lymphocytes % Monocytes % Eosinophils % Basophils % Absolute Neutrophils Absolute Lymphocytes Absolute Monocytes Absolute Eosinophils Absolute Basophils Sodium Potassium Chloride Carbon Dioxide Anion Gap BUN Creatinine Estimated GFR/1.73 m2 Glucose Calcium Magnesium Procalcitonin 0.1 Urine Color Yellow Urine Clarity Sl cloudy Urine pH 6.5 Ur Specific [place] 1.020 Urine Protein Negative Urine Ketones Negative Urine Blood Small H Urine Nitrite Negative Urine Bilirubin Negative Urine Urobilinogen 0.2 Ur Leukocyte Esterase Small H Urine RBC Not Applicable Urine WBC >50 H Ur Epithelial Cells Not Applicable Urine Crystals Not Applicable Urine Bacteria Many Urine Mucus Not Applicable Ur Culture Indicated? Yes Urine Glucose Negative Insert Bladder Catheter Text: The patient was seen at his bedside. He was in the supine position. His indwelling catheter balloon was deflated and the catheter was removed. The suprapubic site was then prepped with Betadine. A 16 [place] catheter was passed through the suprapubic tract into the bladder. The catheter balloon was inflated with 10 cc of sterile water. The catheter was hooked to gravity drainage. He tolerated this procedure well.
--- NOTE | 2019-09-09 19:03 | CMPROGNOTE_ITS ---
- If Service Date Differs Date of service: 09/09/19 Time of Service: 19:03 Care Management Progress Note S/O: Luis Enrique was lying in bed when CM met with him. He reported that he is doing well. He stated that he is very happy with his care at [facility] and that everyone is very nice. When asked about his stay at [facility] he stated that he has been there since last October. He described it as OK but said that the care is better here. He verbalized that he was happy that he would need to remain at [facility] for several more days. Luis Enrique's vital signs remain stable and he is saturatingat 94% on room air. His blood cultures remain negative, however he will require 7 days of IV antibiotics, two of which he has completed. A: Luis Enrique is a 73 year old male admitted to [facility] on 09/06/19 with UTI/Pneumonia. P: Anticipate Luis Enrique will return to [facility] when medically cleared. He will transport via w/c van vs ambulance. He may need a new Covid swab if he stays past 09/09/19, as well as a Covid screening, per H & R requirements. CM will continue to follow and support discharge planning considerations.
[2019-09-09] MEDS: Gabapentin 600 MG TAB 1200 MG PO (20:03)
[2019-09-09] MEDS: Prazosin 1 MG CAP 2 MG PO (20:03)
[2019-09-09] MEDS: Normal Saline Flush 10 ML SYR IVP (21:43)
[2019-09-10] MEDS: PIPERACILLIN/TAZO 4.5 GM in Normal Saline 100 ML IVPB ×4 (03:30→21:51)
[2019-09-10] MEDS: Normal Saline Flush 10 ML SYR IVP ×3 (03:31→21:52)
[2019-09-10 03:38] VITALS: BP 120/60; PULSE 64; RESP 17; TEMP 36.5; O2SAT 95
[2019-09-10 07:43] LABS: Abs Immature Grans 0.01 k/cumm (0.0-0.09); Absolute Basophil Count 0.02 k/cumm (0.0-0.2); Absolute Eosinophil Count 0.17 k/cumm (0.0-0.7); Absolute Monocyte Count 0.69 k/cumm (0.11-0.7); Absolute Neutrophil Count 3.68 k/cumm (1.2-6.7); Basophils % 0.3; Eosinophils % 2.8; HCT 33.5 % (40.0-50.0); Immature Grans % 0.2 %; Lymphocytes % 24.7; Mean Corp. HGB Concentration 32.8 g/dL (32.0-36.0); Mean Corpuscular Hemoglobin 32.7 pg (27.0-33.0); Mean Corpuscular Volume 99.7 fL (80-95); Mean Platelet Volume 11.5 fL (8.0-11.0); Monocytes % 11.4; Neutrophils % 60.6; Platelet Count 195 x1000/uL (130-400); RBC 3.36 m/cumm (4.50-6.00); RBC Distribution Width 13.9 % (11.8-14.1); White Blood Cell Count 6.07 k/cumm (4.4-10.8)
[2019-09-10 07:49] LABS: Anion Gap 5.4 mmol/L (3-11); BUN 12 mg/dL (7-18); CO2 31.6 mmol/L (21.0-32.0); CREATININE 1.06 mg/dL (0.70-1.30); Calcium 8.7 mg/dL (8.5-10.1); Chloride 104 mmol/L (98-107); Glucose 115 mg/dL (74-106); Magnesium 1.5 mg/dL (1.8-2.4); Sodium 141 mmol/L (136-145)
[2019-09-10 08:15] VITALS: BP 121/62; PULSE 57; RESP 17; TEMP 36.8; O2SAT 98
[2019-09-10] MEDS: Enoxaparin 40 MG/0.4 ML SYR SC (09:15)
[2019-09-10] MEDS: MAGNESIUM SULFATE 4 GM/100 ML BAG IVPB (09:15)
[2019-09-10] MEDS: Metoprolol 25 MG TAB 12.5 MG PO ×2 (09:18→19:42)
[2019-09-10] MEDS: Acetaminophen 325 MG TAB PO ×2 (09:19→19:41)
[2019-09-10] MEDS: Clopidogrel 75 MG TAB PO (09:20)
[2019-09-10] MEDS: Atorvastatin 10 MG TAB PO (09:20)
[2019-09-10] MEDS: Mirabegron 50 MG TABCR PO (09:20)
[2019-09-10] MEDS: levETIRAcetam 500 MG TAB PO ×2 (09:20→19:42)
[2019-09-10] MEDS: Lactobacillus Acidophilus CAP 1 CAP PO ×3 (09:20→16:06)
[2019-09-10] MEDS: Dicyclomine 10 MG CAP 20 MG PO ×3 (09:20→19:41)
[2019-09-10] MEDS: Insulin Glargine 300 UNITS/3 ML PEN 8 UNITS SC (09:36)
[2019-09-10] MEDS: Normal Saline 500 ML 30 ML IV (09:36)
--- NOTE | 2019-09-10 10:35 | PT.INTREAT ---
Date of service: 09/10/19 Time of Service: 10:35 PT Notes Visit Reasons: UTI/PNEUMONIA Inpatient Physical Therapy Treatment Note [facility] Date: 09/10/2019 PRECAUTIONS: Fall, WBAT L SUBJECTIVE: Jairo is agreeable to participating in PT, although indicates that he feels anxious about getting hurt while performing transfer from bed to chair. OBJECTIVE: PAIN: No complaints of pain BED MOBILITY/TRANSFERS Supine-sit: Mod A x2 Sit-stand: Min A x2 Stand-sit: Min A x2 GAIT Assistive Device: TOOL GRINDING TECHNICIAN x2 Weight bearing: WBAT L UE and LE Assist: Min A Distance: Stand pivot from bed to chair Deviation: Patient required assist for advancement of L LE Static standing at EOB x1 minute with Min A x2 ASSESSMENT: Patient tolerated session without complaint of pain. He demonstrates improved ability to perform stand pivot transfer, as well as improved ability to perform sit<>stand transfers requiring Min A x2 versus Max A x2 yesterday. PLAN: Continue with PTs POC TREATMENT CODE/TIME: 35 minutes; 81340 x2
[2019-09-10] MEDS: Insulin Aspart 300 UNITS/3 ML PEN SC (12:14)
--- NOTE | 2019-09-10 14:14 | PGE_ITS ---
Date of Service Date of service: 09/10/19 Time of Service: 14:14 Assessment and Plan Assessment and plan (1) UTI (urinary tract infection): Start date: 09/10/19 Start time: 14:16 Status: Acute Assessment and plan: BC NGTD, however uc resistant to levaquin, sensitive to zosyng continue cover with zosyn, this will cover both urine and PNA, unclear this was exactly pneumonia as repeat imaging reveals hyperinflation with no consolidative pna, or edema. None the less will be covered with zosyn day 4 out of 7 (2) Pneumonia: Start date: 09/10/19 Start time: 14:17 Status: Acute Assessment and plan: See above. continue oxygen, updrafts, mucinex. white count and lactate normalized. BC-NGTD sputum culture ordered not collected at this time. Add acapella Procal 0.1 (3) Neurogenic bladder: Start date: 09/10/19 Start time: 14:18 Status: Acute Assessment and plan: has suprapubic catheter in place, Urology consult placed for catheter exchange done on 09/09/2019 (4) CVA (cerebral vascular accident): Start date: 09/10/19 Start time: 14:19 Status: Chronic Assessment and plan: stable, continue home medications, plavix and atorvastatin Continue to work with PT (5) COPD (chronic obstructive pulmonary disease): Start date: 09/10/19 Status: Chronic Assessment and plan: stable at this time. (6) Diabetes: Start date: 09/10/19 Start time: 14:20 Status: Chronic Assessment and plan: Continues to be elevated will increase lantus to 15 and continue diabetic diet with SSI (7) HTN (hypertension): Start date: 09/10/19 Start time: 14:22 Status: Chronic Assessment and plan: Normotensive not requiring any boluses at this time. Continue to monitor. (8) Hypomagnesemia: Start date: 09/10/19 Start time: 14:28 Status: Acute Assessment and plan: 1.5 today will replete and monitor by am labs. (9) Seizure: Start date: 09/10/19 Start time: 14:28 Status: Chronic Assessment and plan: stable, continue keppra (10) DVT prophylaxis: Start date: 09/10/19 Start time: 14:28 Status: Acute Assessment and plan: enoxaparin daily teds, scd's (11) Discharge planning issues: Start date: 09/10/19 Start time: 14:28 Status: Acute Assessment and plan: back to [facility] and rehab when medically stable. Continues to require inpatient care. Case and plan of care discussed with Dr. Brody who is in agreement Subjective Subjective Patient reports: no new complaints Interval history since last seen: Sitting up in chair. doing well. Tolerating diet. Denies CP, SOB, N/v/d Exam Narrative Exam Narrative: Const: Elderly gentlemen pale, AAOx3 with left side deficit from previous CVA sitting up in chair watching tv, relaxing, answer questions appropriately. Eyes: PERRLA, EOMI Resp: diminished bilaterally no wheezing, rhonchi or rales. Cardio: RRR GI: abd soft nontender, bs x 4 Extrem: left side flaccid Objective Objective Clinical Data: Abnormal lab results 09/10/19 09/10/19 Range/Units 07:35 07:35 RBC 3.36 L (4.50-6.00) m/cumm Hgb 11.0 L (13.5-17.5) g/dL Hct 33.5 L (40.0-50.0) % MCV 99.7 H (80-95) fL MPV 11.5 H (8.0-11.0) fL Glucose 115 H (74-106) mg/dL Magnesium 1.5 L (1.8-2.4) mg/dL Vital Signs Temperature 36.8 C 09/10/19 08:15 Temperature Source Temporal Artery Scan 09/10/19 08:15 Pulse 57 L 09/10/19 08:15 Pulse Rhythm Regular 09/10/19 08:35 Respiratory Rate 17 09/10/19 08:15 Respiratory Effort 09/10/19 08:35 Respiratory Depth Normal 09/10/19 08:35 Respiratory Pattern Normal 09/10/19 08:35 Blood Pressure 121/62 09/10/19 08:15 Pulse Oximetry 98 09/10/19 08:15 Oxygen Delivery Method Nasal Cannula 09/10/19 08:15 Oxygen Flow Rate 1 09/10/19 08:15 Pain Level 0 09/09/19 22:39 Comment 09/09/19 20:03 Intake & Output 09/09/19 09/10/1909/09/20 23:59 11:59 23:59 Intake Total 780 / 1160 460 / 820 360 / 820 Output Total 2300 / 2600 900 / 900 Balance -1520 / -1440 -440 / -80 360 / -80 Intake: IV 300 / 400 100 / 100 Oral 480 / 760 360 / 720 360 / 720 Output: Urine 2300 / 2600 900 / 900 Other: Urine Color Yellow Yellow Urine Appearance Clear Clear Urine Odor Normal Stool Size Small Stool Characteristics Formed Voiding Methods Indwelling Catheter Laboratory Results WBC 6.07 k/cumm (4.4-10.8) 09/10/19 07:35 RBC 3.36 m/cumm (4.50-6.00) L 09/10/19 07:35 Hgb 11.0 g/dL (13.5-17.5) L 09/10/19 07:35 Hct 33.5 % (40.0-50.0) L 09/10/19 07:35 MCV 99.7 fL (80-95) H 09/10/19 07:35 MCH 32.7 pg (27.0-33.0) 09/10/19 07:35 MCHC 32.8 g/dL (32.0-36.0) 09/10/19 07:35 RDW 13.9 % (11.8-14.1) 09/10/19 07:35 Plt Count 195 x1000/uL (130-400) 09/10/19 07:35 MPV 11.5 fL (8.0-11.0) H 09/10/19 07:35 Immature Gran % 0.2 % 09/10/19 07:35 Neutrophils % 60.6 09/10/19 07:35 Lymphocytes % 24.7 09/10/19 07:35 Monocytes % 11.4 09/10/19 07:35 Eosinophils % 2.8 09/10/19 07:35 Basophils % 0.3 09/10/19 07:35 Absolute Neutrophils 3.68 k/cumm (1.2-6.7) 09/10/19 07:35 Absolute Lymphocytes 1.50 k/cumm (1.2-3.4) 09/10/19 07:35 Absolute Monocytes 0.69 k/cumm (0.11-0.7) 09/10/19 07:35 Absolute Eosinophils 0.17 k/cumm (0.0-0.7) 09/10/19 07:35 Absolute Basophils 0.02 k/cumm (0.0-0.2) 09/10/19 07:35 Sodium 141 mmol/L (136-145) 09/10/19 07:35 Potassium 4.0 mmol/L (3.5-5.1) 09/10/19 07:35 Chloride 104 mmol/L (98-107) 09/10/19 07:35 Carbon Dioxide 31.6 mmol/L (21.0-32.0) 09/10/19 07:35 Anion Gap 5.4 mmol/L (3-11) 09/10/19 07:35 BUN 12 mg/dL (7-18) 09/10/19 07:35 Creatinine 1.06 mg/dL (0.70-1.30) 09/10/19 07:35 Estimated GFR/1.73 m2 >= 60.00 (mL/min/1.73m2) 09/10/19 07:35 Glucose 115 mg/dL (74-106) H 09/10/19 07:35 Lactate 1.1 mmol/L (0.6-1.4) 09/07/19 08:48 Calcium 8.7 mg/dL (8.5-10.1) 09/10/19 07:35 Magnesium 1.5 mg/dL (1.8-2.4) L 09/10/19 07:35 Total Bilirubin 0.7 mg/dL (0.2-1.0) 09/06/19 16:15 AST 20 U/L (15-37) 09/06/19 16:15 ALT 24 U/L (16-63) 09/06/19 16:15 Alkaline Phosphatase 61 U/L (46-116) 09/06/19 16:15 Troponin I < 0.05 ng/mL (<0.06) 09/06/19 18:42 Total Protein 7.9 g/dL (6.4-8.2) 09/06/19 16:15 Albumin 2.8 g/dL (3.4-5.0) L 09/06/19 16:15 Procalcitonin 0.1 ng/mL 09/09/19 11:01 Urine Color Yellow (Yellow) 09/09/19 09:00 Urine Clarity Sl cloudy (Clear) 09/09/19 09:00 Urine pH 6.5 (5-8) 09/09/19 09:00 Ur Specific [place] 1.020 (1.005-1.025) 09/09/19 09:00 Urine Protein Negative mg/dL (Negative) 09/09/19 09:00 Urine Ketones Negative mg/dL (Negative) 09/09/19 09:00 Urine Blood Small (Negative) H 09/09/19 09:00 Urine Nitrite Negative (Negative) 09/09/19 09:00 Urine Bilirubin Negative (Negative) 09/09/19 09:00 Urine Urobilinogen 0.2 EU/dL (Up TO 0.2) 09/09/19 09:00 Ur Leukocyte Esterase Small (Negative) H 09/09/19 09:00 Urine RBC Not Applicable 09/09/19 09:00 Urine WBC >50 HPF (0-5) H 09/09/19 09:00 Ur Epithelial Cells Not Applicable 09/09/19 09:00 Urine Crystals Not Applicable 09/09/19 09:00 Urine Bacteria Many HPF (Negative) 09/09/19 09:00 Urine Mucus Not Applicable 09/09/19 09:00 Ur Culture Indicated? Yes 09/09/19 09:00 Urine Glucose Negative mg/dL (Negative) 09/09/19 09:00 COVID-19 PCR Negative (Negative) 09/06/19 18:42 Nasopharyn COVID-19 PCR Not Applicable 09/06/19 18:42 Ref Test Perform Site [facility] lab 09/06/19 18:42
[2019-09-10 15:30] VITALS: BP 132/93; PULSE 59; RESP 19; TEMP 36.1; O2SAT 94
[2019-09-10 19:35] VITALS: BP 143/63; PULSE 61; RESP 18; TEMP 36.3; O2SAT 95
--- NOTE | 2019-09-10 20:40 | CMPROGNOTE_ITS ---
- If Service Date Differs Date of service: 09/10/19 Time of Service: 20:40 Care Management Progress Note S/O: Luis Enrique was lying in bed when CM met with him. 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 He felt he should have been told before. Jairo attributes the MRSA to having shared a room with a man in a SNF in [place] who had it and he was never isolated. CM assisted with the completion of a HIPAA form to enable his son Luis Enrique to be updated. A: Luis Enrique is a 73 year old male admitted to [facility] on 09/06/19 with UTI/Pneumonia. P: Anticipate Luis Enrique will return to [facility] when medically cleared. He will transport via w/c van vs ambulance. He may need a new Covid swab if he stays past 09/09/19, as well as a Covid screening, per H & R requirements. CM will continue to follow and support discharge planning considerations.
[2019-09-10] MEDS: Gabapentin 600 MG TAB 1200 MG PO (21:51)
[2019-09-10] MEDS: Prazosin 1 MG CAP 2 MG PO (21:51)
[2019-09-10 23:50] VITALS: BP 116/59; PULSE 67; RESP 17; TEMP 35.9; O2SAT 92
[2019-09-11] MEDS: PIPERACILLIN/TAZO 4.5 GM in Normal Saline 100 ML IVPB ×4 (05:02→21:21)
[2019-09-11] MEDS: Normal Saline 500 ML 30 ML IV (05:02)
[2019-09-11] MEDS: Acetaminophen 325 MG TAB PO (05:03)
[2019-09-11] MEDS: Normal Saline Flush 10 ML SYR IVP ×3 (05:03→21:22)
[2019-09-11 05:30] VITALS: BP 105/51; PULSE 60; RESP 16; TEMP 36; O2SAT 92
[2019-09-11 07:43] LABS: Abs Immature Grans 0.02 k/cumm (0.0-0.09); Absolute Basophil Count 0.02 k/cumm (0.0-0.2); Absolute Eosinophil Count 0.23 k/cumm (0.0-0.7); Absolute Lymphocyte Count 1.61 k/cumm (1.2-3.4); Absolute Monocyte Count 0.66 k/cumm (0.11-0.7); Basophils % 0.3; Eosinophils % 3.3; HCT 34.9 % (40.0-50.0); HGB 11.3 g/dL (13.5-17.5); Immature Grans % 0.3 %; Lymphocytes % 23.2; Mean Corp. HGB Concentration 32.4 g/dL (32.0-36.0); Mean Corpuscular Volume 98.9 fL (80-95); Mean Platelet Volume 10.4 fL (8.0-11.0); Monocytes % 9.5; Neutrophils % 63.4; Platelet Count 201 x1000/uL (130-400); RBC 3.53 m/cumm (4.50-6.00); RBC Distribution Width 13.8 % (11.8-14.1); White Blood Cell Count 6.94 k/cumm (4.4-10.8)
[2019-09-11 07:50] VITALS: BP 104/48; PULSE 56; RESP 18; TEMP 35.8; O2SAT 90
[2019-09-11] MEDS: Dicyclomine 10 MG CAP 20 MG PO ×3 (07:52→19:40)
[2019-09-11] MEDS: Lactobacillus Acidophilus CAP 1 CAP PO ×3 (07:52→17:03)
[2019-09-11] MEDS: Metoprolol 25 MG TAB 12.5 MG PO ×2 (07:53→19:39)
[2019-09-11] MEDS: Clopidogrel 75 MG TAB PO (07:54)
[2019-09-11] MEDS: levETIRAcetam 500 MG TAB PO ×2 (07:54→19:40)
[2019-09-11 07:55] LABS: Magnesium 1.9 mg/dL (1.8-2.4)
[2019-09-11] MEDS: Atorvastatin 10 MG TAB PO (07:55)
[2019-09-11] MEDS: Mirabegron 50 MG TABCR PO (07:55)
[2019-09-11 08:00] LABS: BUN 16 mg/dL (7-18); CREATININE 0.92 mg/dL (0.70-1.30); Calcium 8.8 mg/dL (8.5-10.1); Chloride 104 mmol/L (98-107); Glucose 117 mg/dL (74-106); Sodium 141 mmol/L (136-145)
[2019-09-11] MEDS: Insulin Glargine 300 UNITS/3 ML PEN 15 UNITS SC (08:11)
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
[2019-09-11] MEDS: Enoxaparin 40 MG/0.4 ML SYR SC (10:06)
--- NOTE | 2019-09-11 10:34 | PTTR_ITS ---
Date of service: 09/11/19 Time of Service: 10:34 PT Notes Visit Reasons: UTI/PNEUMONIA Inpatient Physical Therapy Treatment Note [facility] Date: 09/11/2019 PRECAUTIONS: Fall, WBAT L SUBJECTIVE: Jairo is agreeable to participating in PT, he reports that he is having a much better morning today vs yesterday. OBJECTIVE: PAIN: No complaints of pain BED MOBILITY/TRANSFERS Rolling L/R: SBA Supine-sit: Mod A Sit-stand: Min A x2 Stand-sit: Min A x2 GAIT Assistive Device: EDUC[employer] S[employer]IOR [employer]IN[employer] Weight bearing: WBAT L UE and LE Assist: CGA Distance: Stand pivot from bed to chair Deviation: Patient required assist for advancement of L LE Static standing at EOB 3 x 1 minute with EDUC[employer] x2 and CGA/Min A Weight shifting to L x2. Therapist braced L foot for stability and patient comfort ASSESSMENT: Patient tolerated session without complaint of pain. He demonstrates improved ability to perform stand pivot transfer, as well as improved ability to perform [id number] transfer requiring Mod A x1 versus Mod A x2, yesterday. PLAN: Continue with PTs POC TREATMENT CODE/TIME: 35 minutes; 51375 x2
[2019-09-11 11:25] VITALS: BP 111/46; PULSE 66; RESP 18; TEMP 36; O2SAT 91
[2019-09-11] MEDS: Insulin Aspart 300 UNITS/3 ML PEN SC ×2 (12:02→17:03)
--- NOTE | 2019-09-11 13:25 | PGE_ITS ---
Date of Service Date of service: 09/11/19 Time of Service: 13:25 Assessment and Plan Assessment and plan (1) UTI (urinary tract infection): Start date: 09/11/19 Start time: 13:26 Status: Acute Assessment and plan: Day 5 of 7 zosyn. doing well. D/c to rehab thursday Will not repeat any more cultures per Dr. Eason note (2) Neurogenic bladder: Start date: 09/11/19 Start time: 13:27 Status: Acute Assessment and plan: has suprapubic catheter in place, Urology consult placed for catheter exchange done on 09/09/2019 (3) CVA (cerebral vascular accident): Start date: 09/11/19 Start time: 13:27 Status: Chronic Assessment and plan: stable, continue home medications, plavix and atorvastatin Continue to work with PT (4) COPD (chronic obstructive pulmonary disease): Start date: 09/11/19 Start time: 13:27 Status: Chronic Assessment and plan: stable at this time. (5) Diabetes: Start date: 09/11/19 Start time: 13:27 Status: Chronic Assessment and plan: improved by am labs 115. Will continue lantus at this time (6) HTN (hypertension): Start date: 09/11/19 Start time: 13:28 Status: Chronic Assessment and plan: Normotensive not requiring any boluses at this time. Continue to monitor. (7) Hypomagnesemia: Start date: 09/11/19 Start time: 13:28 Status: Resolved Assessment and plan: . Resolved. repelete as necessary (8) Seizure: Start date: 09/11/19 Start time: 13:29 Status: Chronic Assessment and plan: stable, continue keppra (9) DVT prophylaxis: Start date: 09/11/19 Status: Acute Assessment and plan: enoxaparin daily teds, scd's (10) Discharge planning issues: Start date: 09/11/19 Start time: 13:29 Status: Acute Assessment and plan: back to [facility] and rehab when medically stable. Continues to require inpatient care. Case and plan of care discussed with Dr. Brody who is in agreement Subjective Subjective Interval history since last seen: Doing well sitting up in chair no new complaints Exam Narrative Exam Narrative: Const: Elderly gentlemen pale, AAOx3 with left side deficit from previous CVA sitting up in chair watching tv, relaxing, answer questions appropriately. Eyes: PERRLA, EOMI Resp: diminished bilaterally no wheezing, rhonchi or rales. Cardio: RRR GI: abd soft nontender, bs x 4 Extrem: left side flaccid Const General: cooperative, comfortable, no acute distress, frail appearing (elderly male of stated age, long white hair and facial hair) and ill appearing Nutritional Appearance: thin Orientation: alert, awake and oriented x3 HENMT Head: normal to inspection, normocephalic and atraumatic Mouth: oral mucosae normal Resp Effort & Inspection: normal respiratory effort and able to speak in complete sentences Auscultation: diminished lung sounds (throughout) Cardio Rate: regular rate Rhythm: regular rhythm GI Inspection: other (suprapubic catheter in place, draining cloudy urine, site clear) Palpation: soft Auscultation: normal bowel sounds General: other (see GI assessment) Skin General skin exam: dry skin Neuro General: patient alert, patient awake and patient oriented x3 Cognition: normal cognition Speech: other (slow to respond but appropriate, slightly slurred) Motor: strength not 5/5 throughout and strength abnormal (hemiparesis left, left hand contracted, extensive left foot drop) Extrem General: no pedal edema Right upper extremity: normal to inspection and full ROM Left upper extremity: ROM limited (flacid, hand contracted) Right lower extremity: normal to inspection and full ROM Left lower extremity: abnormal ROM (flacid, foot drop) Objective Objective Clinical Data: Abnormal lab results 09/11/19 09/11/19 Range/Units 07:30 07:30 RBC 3.53 L (4.50-6.00) m/cumm Hgb 11.3 L (13.5-17.5) g/dL Hct 34.9 L (40.0-50.0) % MCV 98.9 H (80-95) fL Glucose 117 H (74-106) mg/dL Vital Signs Temperature 36.0 C L 09/11/19 11:25 Temperature Source Tympanic 09/11/19 11:25 Pulse 66 09/11/19 11:25 Pulse Rhythm Regular 09/11/19 00:40 Respiratory Rate 18 09/11/19 11:25 Respiratory Effort 09/11/19 10:14 Respiratory Depth Normal 09/11/19 10:14 Respiratory Pattern Normal 09/11/19 10:14 Blood Pressure 111/46 L 09/11/19 11:25 Pulse Oximetry 91 L 09/11/19 11:25 Oxygen Delivery Method Nasal Cannula 09/11/19 11:25 Oxygen Flow Rate 1 09/11/19 11:25 Pain Level 0 09/11/19 11:25 Comment 09/09/19 20:03 Intake & Output 09/10/19 09/11/19 09/11/19 23:59 11:59 23:59 Intake Total 900 / 1472 100 / 100 Output Total 1200 / 2100 550 / 550 Balance -300 / -628 -450 / -450 Weight 65.1 kg Intake: IV 300 / 512 100 / 100 Oral 600 / 960 Output: Urine 1200 / 2100 550 / 550 Other: Urine Color Yellow Yellow Urine Appearance Clear Clear Stool Occult Blood Negative Stool Size Moderate Stool Characteristics Soft Formed Laboratory Results WBC 6.94 k/cumm (4.4-10.8) 09/11/19 07:30 RBC 3.53 m/cumm (4.50-6.00) L 09/11/19 07:30 Hgb 11.3 g/dL (13.5-17.5) L 09/11/19 07:30 Hct 34.9 % (40.0-50.0) L 09/11/19 07:30 MCV 98.9 fL (80-95) H 09/11/19 07:30 MCH 32.0 pg (27.0-33.0) 09/11/19 07:30 MCHC 32.4 g/dL (32.0-36.0) 09/11/19 07:30 RDW 13.8 % (11.8-14.1) 09/11/19 07:30 Plt Count 201 x1000/uL (130-400) 09/11/19 07:30 MPV 10.4 fL (8.0-11.0) 09/11/19 07:30 Immature Gran % 0.3 % 09/11/19 07:30 Neutrophils % 63.4 09/11/19 07:30 Lymphocytes % 23.2 09/11/19 07:30 Monocytes % 9.5 09/11/19 07:30 Eosinophils % 3.3 09/11/19 07:30 Basophils % 0.3 09/11/19 07:30 Absolute Neutrophils 4.40 k/cumm (1.2-6.7) 09/11/19 07:30 Absolute Lymphocytes 1.61 k/cumm (1.2-3.4) 09/11/19 07:30 Absolute Monocytes 0.66 k/cumm (0.11-0.7) 09/11/19 07:30 Absolute Eosinophils 0.23 k/cumm (0.0-0.7) 09/11/19 07:30 Absolute Basophils 0.02 k/cumm (0.0-0.2) 09/11/19 07:30 Sodium 141 mmol/L (136-145) 09/11/19 07:30 Potassium 4.0 mmol/L (3.5-5.1) 09/11/19 07:30 Chloride 104 mmol/L (98-107) 09/11/19 07:30 Carbon Dioxide 29.0 mmol/L (21.0-32.0) 09/11/19 07:30 Anion Gap 8.0 mmol/L (3-11) 09/11/19 07:30 BUN 16 mg/dL (7-18) 09/11/19 07:30 Creatinine 0.92 mg/dL (0.70-1.30) 09/11/19 07:30 Estimated GFR/1.73 m2 >= 60.00 (mL/min/1.73m2) 09/11/19 07:30 Glucose 117 mg/dL (74-106) H 09/11/19 07:30 Lactate 1.1 mmol/L (0.6-1.4) 09/07/19 08:48 Calcium 8.8 mg/dL (8.5-10.1) 09/11/19 07:30 Magnesium 1.9 mg/dL (1.8-2.4) 09/11/19 07:30 Total Bilirubin 0.7 mg/dL (0.2-1.0) 09/06/19 16:15 AST 20 U/L (15-37) 09/06/19 16:15 ALT 24 U/L (16-63) 09/06/19 16:15 Alkaline Phosphatase 61 U/L (46-116) 09/06/19 16:15 Troponin I < 0.05 ng/mL (<0.06) 09/06/19 18:42 Total Protein 7.9 g/dL (6.4-8.2) 09/06/19 16:15 Albumin 2.8 g/dL (3.4-5.0) L 09/06/19 16:15 Procalcitonin 0.1 ng/mL 09/09/19 11:01 Urine Color Yellow (Yellow) 09/09/19 09:00 Urine Clarity Sl cloudy (Clear) 09/09/19 09:00 Urine pH 6.5 (5-8) 09/09/19 09:00 Ur Specific [place] 1.020 (1.005-1.025) 09/09/19 09:00 Urine Protein Negative mg/dL (Negative) 09/09/19 09:00 Urine Ketones Negative mg/dL (Negative) 09/09/19 09:00 Urine Blood Small (Negative) H 09/09/19 09:00 Urine Nitrite Negative (Negative) 09/09/19 09:00 Urine Bilirubin Negative (Negative) 09/09/19 09:00 Urine Urobilinogen 0.2 EU/dL (Up TO 0.2) 09/09/19 09:00 Ur Leukocyte Esterase Small (Negative) H 09/09/19 09:00 Urine RBC Not Applicable 09/09/19 09:00 Urine WBC >50 HPF (0-5) H 09/09/19 09:00 Ur Epithelial Cells Not Applicable 09/09/19 09:00 Urine Crystals Not Applicable 09/09/19 09:00 Urine Bacteria Many HPF (Negative) 09/09/19 09:00 Urine Mucus Not Applicable 09/09/19 09:00 Ur Culture Indicated? Yes 09/09/19 09:00 Urine Glucose Negative mg/dL (Negative) 09/09/19 09:00 COVID-19 PCR Negative (Negative) 09/06/19 18:42 Nasopharyn COVID-19 PCR Not Applicable 09/06/19 18:42 Ref Test Perform Site Counts include 234 beds at the [facility] lab 09/06/19 18:42
[2019-09-11 15:15] VITALS: BP 146/64; PULSE 60; RESP 18; TEMP 36.4; O2SAT 94
[2019-09-11 19:18] VITALS: BP 160/63; PULSE 63; RESP 18; TEMP 36; O2SAT 92
[2019-09-11] MEDS: Gabapentin 600 MG TAB 1200 MG PO (21:21)
[2019-09-11] MEDS: Prazosin 1 MG CAP 2 MG PO (21:21)
[2019-09-11 22:53] VITALS: BP 113/46; PULSE 65; RESP 17; TEMP 36.2; O2SAT 87
[2019-09-12 03:48] VITALS: BP 118/72; PULSE 64; RESP 18; TEMP 36.4; O2SAT 90
[2019-09-12] MEDS: PIPERACILLIN/TAZO 4.5 GM in Normal Saline 100 ML IVPB ×4 (03:55→21:46)
[2019-09-12] MEDS: Normal Saline Flush 10 ML SYR IVP ×4 (03:55→22:41)
[2019-09-12 07:35] LABS: Abs Immature Grans 0.03 k/cumm (0.0-0.09); Absolute Basophil Count 0.02 k/cumm (0.0-0.2); Absolute Eosinophil Count 0.23 k/cumm (0.0-0.7); Absolute Lymphocyte Count 2.22 k/cumm (1.2-3.4); Absolute Monocyte Count 0.77 k/cumm (0.11-0.7); Absolute Neutrophil Count 4.87 k/cumm (1.2-6.7); Basophils % 0.2; Eosinophils % 2.8; HCT 34.3 % (40.0-50.0); HGB 11.2 g/dL (13.5-17.5); Immature Grans % 0.4 %; Lymphocytes % 27.3; Mean Corp. HGB Concentration 32.7 g/dL (32.0-36.0); Mean Corpuscular Hemoglobin 32.1 pg (27.0-33.0); Mean Corpuscular Volume 98.3 fL (80-95); Mean Platelet Volume 11.1 fL (8.0-11.0); Monocytes % 9.5; Neutrophils % 59.8; Platelet Count 230 x1000/uL (130-400); RBC 3.49 m/cumm (4.50-6.00); White Blood Cell Count 8.14 k/cumm (4.4-10.8)
[2019-09-12 07:39] LABS: Anion Gap 6.9 mmol/L (3-11); BUN 15 mg/dL (7-18); CO2 28.1 mmol/L (21.0-32.0); CREATININE 0.99 mg/dL (0.70-1.30); Calcium 8.5 mg/dL (8.5-10.1); Chloride 106 mmol/L (98-107); Glucose 106 mg/dL (74-106); Potassium 3.9 mmol/L (3.5-5.1); Sodium 141 mmol/L (136-145)
[2019-09-12 07:42] VITALS: BP 97/55; PULSE 54; RESP 15; TEMP 35.7; O2SAT 94
[2019-09-12] MEDS: Insulin Glargine 300 UNITS/3 ML PEN 15 UNITS SC (07:45)
[2019-09-12] MEDS: Atorvastatin 10 MG TAB PO (07:46)
[2019-09-12] MEDS: Mirabegron 50 MG TABCR PO (07:47)
[2019-09-12] MEDS: Lactobacillus Acidophilus CAP 1 CAP PO ×3 (07:47→16:17)
[2019-09-12] MEDS: levETIRAcetam 500 MG TAB PO ×2 (07:48→20:26)
[2019-09-12] MEDS: Clopidogrel 75 MG TAB PO (07:48)
[2019-09-12] MEDS: Normal Saline 250 ML IV (09:00)
[2019-09-12] MEDS: Enoxaparin 40 MG/0.4 ML SYR SC (09:51)
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
[2019-09-12 11:22] VITALS: RESP 24; O2SAT 93
[2019-09-12] MEDS: Dicyclomine 10 MG CAP 20 MG PO ×3 (11:44→20:26)
--- NOTE | 2019-09-12 11:46 | PT.INTREAT ---
Date of service: 09/12/19 Time of Service: 11:26 PT Notes Visit Reasons: UTI/PNEUMONIA Physical Therapy Inpatient Treatment Note Date: 09/12/2019 Precautions: Fall. Standard. Activity as tolerated. L AFO and diabetci shoes on when OOB. Subjective: Patient continues to complain of L ankle and foot pain. He is agreeable to sitting up on the chair for lunch. Objective: General Observation: Telemetry monitoring in place. Suprapubic catheter in place. Bilateral foot drop with L more affected than the R. Flaccid L UE/LE. L hand flexion contracture. 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 Mental Status: Alert and oriented x 4 Pain: 8-9/10 mostly in L ankle and foot with weight-bearing TRANSFER: Patient toelrated supine to sit with moderate assist and moderate verbal cueing for correct technique. He appeared stable while sitting at edge of bed for about 5 minutes before standing up with minimal assist of 2. he was able to pivot onto bedside reclining chair with R good LE leading, L LE slid along. No active hip flexion nor knee flexion to lift L LE up due to hemiplegia. Assessment: Luis Enrique continues to present with significant mobility decline requiring extensive assist of 2 people and minimal assist of a third person for all mobility ADL performance. He will require premedication for pain will be needed prior to transfer activity. DISCHARGE RECOMMENDATIONS: Return to SNF when medically cleared. Requires L AFO and diabetic shoes to be collected from SNF and brought into here to maximize safety of transfer tasks. TREATMENT CODE/TIME: 61094 x 29 minutes beginning at 11:26 AM.
[2019-09-12 11:58] VITALS: BP 135/66; PULSE 66; RESP 18; TEMP 35.8; O2SAT 92
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
[2019-09-12] MEDS: traMADol 50 MG TAB PO ×2 (12:14→22:47)
--- NOTE | 2019-09-12 14:34 | PT.INTREAT ---
Date of service: 09/12/19 Time of Service: 14:34 PT Notes Visit Reasons: UTI/PNEUMONIA Inpatient Physical Therapy Treatment Note [facility] Date: 09/12/2019 PM session. SUBJECTIVE: Jairo reports that his foot is in terrible pain. OBJECTIVE: [] BED MOBILITY/TRANSFERS Sit-supine: min A x2. Sit-stand: mod A x2. Stand-sit:mod Ax2 GAIT Assistive Device: HHAx2 Weight bearing: AT Assist: Mod A x2. Distance: pivot ASSESSMENT: tolerated session fair. Increased pain with any type of mvmt of LLE. Hollered in pain with WB. PLAN: will continue to progress his functional mobility to his tolerance per PT POC. TREATMENT CODE/TIME: 15 min. [id number]
[2019-09-12 16:05] VITALS: BP 149/66; PULSE 60; RESP 19; TEMP 35.9; O2SAT 95
[2019-09-12] MEDS: Insulin Aspart 300 UNITS/3 ML PEN SC (17:10)
[2019-09-12 20:22] VITALS: BP 163/75; PULSE 62; RESP 18; TEMP 35.8; O2SAT 93
[2019-09-12] MEDS: Metoprolol 25 MG TAB 12.5 MG PO (20:26)
[2019-09-12] MEDS: Prazosin 1 MG CAP 2 MG PO (21:46)
[2019-09-12] MEDS: Gabapentin 600 MG TAB 1200 MG PO (21:47)
[2019-09-13] VITALS (13 sets, daily range): BP systolic 88–151; BP diastolic 36–69; PULSE 49–74; RESP 16–20; TEMP 35.6–36.9; O2SAT 88–95
[2019-09-13] MEDS: PIPERACILLIN/TAZO 4.5 GM in Normal Saline 100 ML IVPB ×2 (03:29→09:19)
[2019-09-13] MEDS: Normal Saline 500 ML IV (05:54)
[2019-09-13 07:07] LABS: Abs Immature Grans 0.04 k/cumm (0.0-0.09); Absolute Basophil Count 0.02 k/cumm (0.0-0.2); Absolute Eosinophil Count 0.27 k/cumm (0.0-0.7); Absolute Monocyte Count 0.73 k/cumm (0.11-0.7); Absolute Neutrophil Count 4.49 k/cumm (1.2-6.7); Basophils % 0.3; Eosinophils % 3.5; HCT 33.9 % (40.0-50.0); HGB 10.9 g/dL (13.5-17.5); Immature Grans % 0.5 %; Lymphocytes % 27.5; Mean Corp. HGB Concentration 32.2 g/dL (32.0-36.0); Mean Corpuscular Hemoglobin 31.7 pg (27.0-33.0); Mean Corpuscular Volume 98.5 fL (80-95); Mean Platelet Volume 10.6 fL (8.0-11.0); Monocytes % 9.5; Neutrophils % 58.7; Platelet Count 240 x1000/uL (130-400); RBC 3.44 m/cumm (4.50-6.00); RBC Distribution Width 14.1 % (11.8-14.1); White Blood Cell Count 7.65 k/cumm (4.4-10.8)
[2019-09-13 07:12] LABS: Anion Gap 7.1 mmol/L (3-11); BUN 16 mg/dL (7-18); CO2 27.9 mmol/L (21.0-32.0); CREATININE 0.99 mg/dL (0.70-1.30); Calcium 8.3 mg/dL (8.5-10.1); Chloride 104 mmol/L (98-107); Glucose 109 mg/dL (74-106); Potassium 4.2 mmol/L (3.5-5.1); Sodium 139 mmol/L (136-145)
[2019-09-13] MEDS: Atorvastatin 10 MG TAB PO (08:55)
[2019-09-13] MEDS: Clopidogrel 75 MG TAB PO (08:55)
[2019-09-13] MEDS: Lactobacillus Acidophilus CAP 1 CAP PO ×3 (08:56→17:06)
[2019-09-13] MEDS: levETIRAcetam 500 MG TAB PO ×2 (08:56→19:34)
[2019-09-13] MEDS: Mirabegron 50 MG TABCR PO (08:56)
[2019-09-13] MEDS: Normal Saline Flush 10 ML SYR IVP ×2 (08:57→19:32)
[2019-09-13] MEDS: Enoxaparin 40 MG/0.4 ML SYR SC (09:18)
[2019-09-13] MEDS: Dicyclomine 10 MG CAP 20 MG PO ×3 (09:18→19:33)
--- NOTE | 2019-09-13 10:39 | PGE_ITS ---
Date of Service Date of service: 09/13/19 Time of Service: 10:40 Assessment and Plan Assessment and plan (1) Pneumonia: Status: Resolved Assessment and plan: respiratory status stable but with some low oxygen requirements, wean oxygen to keep sats 90. (2) UTI (urinary tract infection): Status: Acute Assessment and plan: Day 7 of zosyn. continue to do well. D/c to rehab thursday after covid testing returns Will not repeat any more cultures per Dr. Eason note Doing well (3) Neurogenic bladder: Status: Acute Assessment and plan: has suprapubic catheter in place, Urology consult placed for catheter exchange done on 09/09/2019 (4) CVA (cerebral vascular accident): Status: Chronic Assessment and plan: stable, continue home medications, plavix and atorvastatin Continue to work with PT (5) HTN (hypertension): Status: Chronic Assessment and plan: continues to have low readings at night, asymptomatic, will discontinue HS metoprolol. continue to monitor and adjust as needed. (6) Seizure: Status: Chronic Assessment and plan: stable, continue keppra (7) Diabetes: Status: Chronic Assessment and plan: blood sugars stable, 102-180, continue current diabetes regimen (8) DVT prophylaxis: Status: Acute Assessment and plan: enoxaparin daily teds, scd's (9) Discharge planning issues: Status: Acute Assessment and plan: plan to discharge back to [facility] and rehab tomorrow if covid testing negative. Subjective Subjective Interval history since last seen: blood pressures again overnight, asymptomatic, also with some minimal oxygen requirements but with no respiratory symptoms. eating and drinking well, hemodynamically stable. Exam Const General: cooperative, healthy appearing, comfortable and no acute distress Nutritional Appearance: overweight Orientation: alert, awake and oriented x3 Eyes Pupils: PERRL EOM: EOM intact bilaterally Resp Effort & Inspection: normal respiratory effort Auscultation: diminished lung sounds Cardio Rate: regular rate Rhythm: regular rhythm GI Inspection: normal to inspection Palpation: soft Auscultation: normal bowel sounds Skin General skin exam: no rashes or lesions noted Neuro General: patient alert, patient awake, patient oriented x3 and other (left side flacid) Motor: strength abnormal (left side flacid) Objective Objective Clinical Data: Abnormal lab results 07/21/20 07/21/20 Range/Units 06:50 06:50 RBC 3.44 L (4.50-6.00) m/cumm Hgb 10.9 L (13.5-17.5) g/dL Hct 33.9 L (40.0-50.0) % MCV 98.5 H (80-95) fL Absolute Monocytes 0.73 H (0.11-0.7) k/cumm Glucose 109 H (74-106) mg/dL Calcium 8.3 L (8.5-10.1) mg/dL Vital Signs Temperature 36 C L 09/13/19 08:12 Temperature Source Tympanic 09/13/19 08:12 Pulse 54 L 09/13/19 08:12 Pulse Rhythm Regular 09/13/19 02:34 Respiratory Rate 18 09/13/19 08:12 Respiratory Effort Non-Labored 09/13/19 02:34 Respiratory Depth Normal 09/13/19 02:34 Respiratory Pattern Normal 09/13/19 02:34 Blood Pressure 108/36 L 09/13/19 09:03 Pulse Oximetry 93 L 09/13/19 10:30 Oxygen Delivery Method Nasal Cannula 09/13/19 10:30 Oxygen Flow Rate 2 09/13/19 10:30 Pain Level 0 09/13/19 09:03 Comment 09/13/19 09:03 Intake & Output 09/12/19 09/12/19 09/13/19 11:59 23:59 11:59 Intake Total 450 / 1000 550 / 1000 350 / 350 Output Total 2450 / 3100 650 / 3100 2100 / 2100 Balance -2000 / -2100 -100 / -2100 -1750 / -1750 Weight 65.9 kg 65.5 kg Intake: IV 450 / 660 210 / 660 110 / 110 Oral 340 / 340 240 / 240 Output: Urine 2450 / 3100 650 / 3100 2099 / 2099 Other: Urine Color Yellow Yellow Yellow Urine Appearance Clear Clear Clear Urine Odor Normal Voiding Methods Indwelling Catheter Laboratory Results WBC 7.65 k/cumm (4.4-10.8) 09/13/19 06:50 RBC 3.44 m/cumm (4.50-6.00) L 09/13/19 06:50 Hgb 10.9 g/dL (13.5-17.5) L 09/13/19 06:50 Hct 33.9 % (40.0-50.0) L 09/13/19 06:50 MCV 98.5 fL (80-95) H 09/13/19 06:50 MCH 31.7 pg (27.0-33.0) 09/13/19 06:50 MCHC 32.2 g/dL (32.0-36.0) 09/13/19 06:50 RDW 14.1 % (11.8-14.1) 09/13/19 06:50 Plt Count 240 x1000/uL (130-400) 09/13/19 06:50 MPV 10.6 fL (8.0-11.0) 09/13/19 06:50 Immature Gran % 0.5 % 09/13/19 06:50 Neutrophils % 58.7 09/13/19 06:50 Lymphocytes % 27.5 09/13/19 06:50 Monocytes % 9.5 09/13/19 06:50 Eosinophils % 3.5 09/13/19 06:50 Basophils % 0.3 09/13/19 06:50 Absolute Neutrophils 4.49 k/cumm (1.2-6.7) 09/13/19 06:50 Absolute Lymphocytes 2.10 k/cumm (1.2-3.4) 09/13/19 06:50 Absolute Monocytes 0.73 k/cumm (0.11-0.7) H 09/13/19 06:50 Absolute Eosinophils 0.27 k/cumm (0.0-0.7) 09/13/19 06:50 Absolute Basophils 0.02 k/cumm (0.0-0.2) 09/13/19 06:50 Sodium 139 mmol/L (136-145) 09/13/19 06:50 Potassium 4.2 mmol/L (3.5-5.1) 09/13/19 06:50 Chloride 104 mmol/L (98-107) 09/13/19 06:50 Carbon Dioxide 27.9 mmol/L (21.0-32.0) 09/13/19 06:50 Anion Gap 7.1 mmol/L (3-11) 09/13/19 06:50 BUN 16 mg/dL (7-18) 09/13/19 06:50 Creatinine 0.99 mg/dL (0.70-1.30) 09/13/19 06:50 Estimated GFR/1.73 m2 >= 60.00 (mL/min/1.73m2) 09/13/19 06:50 Glucose 109 mg/dL (74-106) H 09/13/19 06:50 Lactate 1.1 mmol/L (0.6-1.4) 09/07/19 08:48 Calcium 8.3 mg/dL (8.5-10.1) L 09/13/19 06:50 Magnesium 1.9 mg/dL (1.8-2.4) 09/11/19 07:30 Total Bilirubin 0.7 mg/dL (0.2-1.0) 09/06/19 16:15 AST 20 U/L (15-37) 09/06/19 16:15 ALT 24 U/L (16-63) 09/06/19 16:15 Alkaline Phosphatase 61 U/L (46-116) 09/06/19 16:15 Troponin I < 0.05 ng/mL (<0.06) 09/06/19 18:42 Total Protein 7.9 g/dL (6.4-8.2) 09/06/19 16:15 Albumin 2.8 g/dL (3.4-5.0) L 09/06/19 16:15 Procalcitonin 0.1 ng/mL 09/09/19 11:01 Urine Color Yellow (Yellow) 09/09/19 09:00 Urine Clarity Sl cloudy (Clear) 09/09/19 09:00 Urine pH 6.5 (5-8) 09/09/19 09:00 Ur Specific [place] 1.020 (1.005-1.025) 09/09/19 09:00 Urine Protein Negative mg/dL (Negative) 09/09/19 09:00 Urine Ketones Negative mg/dL (Negative) 09/09/19 09:00 Urine Blood Small (Negative) H 09/09/19 09:00 Urine Nitrite Negative (Negative) 09/09/19 09:00 Urine Bilirubin Negative (Negative) 09/09/19 09:00 Urine Urobilinogen 0.2 EU/dL (Up TO 0.2) 09/09/19 09:00 Ur Leukocyte Esterase Small (Negative) H 09/09/19 09:00 Urine RBC Not Applicable 09/09/19 09:00 Urine WBC >50 HPF (0-5) H 09/09/19 09:00 Ur Epithelial Cells Not Applicable 09/09/19 09:00 Urine Crystals Not Applicable 09/09/19 09:00 Urine Bacteria Many HPF (Negative) 09/09/19 09:00 Urine Mucus Not Applicable 09/09/19 09:00 Ur Culture Indicated? Yes 09/09/19 09:00 Urine Glucose Negative mg/dL (Negative) 09/09/19 09:00 COVID-19 PCR Negative (Negative) 09/06/19 18:42 Nasopharyn COVID-19 PCR Not Applicable 09/06/19 18:42 Ref Test Perform Site [facility] lab 09/06/19 18:42
--- NOTE | 2019-09-13 11:20 | PT.INTREAT ---
Date of service: 09/13/19 Time of Service: 11:21 PT Notes Visit Reasons: UTI/PNEUMONIA Inpatient Physical Therapy Treatment Note [facility] Date: 09/13/19 PRECAUTIONS: Fall, WBAT L SUBJECTIVE: Luis Enrique is pleasant and agreeable to participating in PT. He reports that he is feeling hungry. OBJECTIVE: PAIN: Patient c/o minimal L ankle pain with [id number] transfer x1 BED MOBILITY/TRANSFERS Supine-sit: CGA Sit-stand: Min A x2 Stand-sit: Min A x2 Bed-Chair: Stand-pivot transfer with CGA x1 leading with R, assist with L LE VITALS: SaO2: 95% on 1L O2 via NC THEREX: Static stand 1x30 seconds and 1x1 minute with weight shifts to L and R x10 each, with therapist bracing L LE with SOLAR ELECTRIC/PHOTOVOLTAIC INSTALLER x2 and Min A x2 in a.m. ASSESSMENT: Patient tolerated session well with minimal c/o L ankle pain with [id number] transfer x1. He was able to tolerate increased reps of weight shifts to L and R. PLAN: Continue with PT's POC TREATMENT CODE/TIME: 30 minutes; 61868 x2
[2019-09-13] MEDS: Insulin Aspart 300 UNITS/3 ML PEN SC (12:52)
--- NOTE | 2019-09-13 15:40 | PDOC.CMPRO ---
Care Management Progress Note S/O: Luis Enrique continues to be closely monitored at this time. He was sleeping soundly when CM attempted to meet with him. CM emailed admissions at [facility] to notify of discharge timing; awaiting CV-19 results which may now delay discharge. CM continues to follow. A: Luis Enrique is a 73 year old male admitted to [facility] on 09/06/19 with UTI/Pneumonia. P: Luis Enrique will return to [facility] when medically cleared. He will transport via [facility]. Awaiting CV-19 results, per [facility] requirements. CM will continue to follow and support discharge planning considerations.
[2019-09-13] MEDS: traMADol 50 MG TAB PO (19:33)
[2019-09-13] MEDS: Nystatin POWDER 15 GM JAR TP (20:48)
[2019-09-13] MEDS: Prazosin 1 MG CAP 2 MG PO (21:28)
[2019-09-13] MEDS: Gabapentin 600 MG TAB 1200 MG PO (21:28)
[2019-09-13] MEDS: LORazepam 0.5 MG TAB PO (23:11)
[2019-09-14 03:51] VITALS: BP 107/62; PULSE 65; RESP 19; TEMP 36.2; O2SAT 93
[2019-09-14 08:05] VITALS: BP 101/47; PULSE 56; RESP 18; TEMP 36.4; O2SAT 90
[2019-09-14] MEDS: Dicyclomine 10 MG CAP 20 MG PO ×3 (08:22→19:13)
[2019-09-14] MEDS: Mirabegron 50 MG TABCR PO (08:22)
[2019-09-14] MEDS: Lactobacillus Acidophilus CAP 1 CAP PO ×3 (08:22→16:54)
[2019-09-14] MEDS: Metoprolol 25 MG TAB 12.5 MG PO (08:23)
[2019-09-14] MEDS: Clopidogrel 75 MG TAB PO (08:23)
[2019-09-14] MEDS: Atorvastatin 10 MG TAB PO (08:23)
[2019-09-14] MEDS: levETIRAcetam 500 MG TAB PO ×2 (08:23→19:13)
[2019-09-14] MEDS: Insulin Glargine 300 UNITS/3 ML PEN 15 UNITS SC (08:24)
[2019-09-14] MEDS: Nystatin POWDER 15 GM JAR TP ×2 (08:27→19:13)
--- NOTE | 2019-09-14 09:37 | W.PM.DS.N ---
Date of service: 09/14/19 Time of Service: 09:37 DS: Diagnosis Discharge Diagnosis (1) Pneumonia: Status: Resolved (2) UTI (urinary tract infection): Status: Acute (3) Neurogenic bladder: Status: Acute (4) CVA (cerebral vascular accident): Status: Chronic (5) HTN (hypertension): Status: Chronic (6) Seizure: Status: Chronic (7) Diabetes: Status: Chronic Discharge Plan Disposition Patient Disposition: SNF (LEVEL 1) [facility] Condition: Fair Discharge Details Chief Complaint: RespSymp Clinical Impression: UTI (urinary tract infection), Pneumonia, Atrial flutter Reason For Visit: UTI/PNEUMONIA Admit Date/Time: 09/06/19 18:42 Admit Provider: Luis Newberry Attending Provider: Luis Newberry Primary Care Provider: Eileen Webster ED Provider: Amna Hudson Hospital Course Hospital Course: This is a 73-year-old man with a past medical history of cerebrovascular accident with left hemiparesis who resides at [facility] rehab who presented to the emergency department by EMS for complaints of lethargy. He had nausea, vomiting and was reportedly not at his baseline. A specimen from his suprapubic catheter was grossly positive for infection. His chest x-ray was suspicious for a left upper lobe infiltrate. He received IV fluids and was started on ceftriaxone. He was admitted to med/surg for further treatment. On his first hospital night he did spike a temp so antibiotic coverage was broadened from ceftriaxone to Levaquin and Zosyn to cover atypicals possible aspiration and urinary tract infection MRSA nasal swab was obtained which was positive but he did have clinical improvement after switching to Zosyn with no further fevers so vancomycin was not started. His white count normalized and his respiratory status remained stable his chest x-ray showed signs of improvement and a pro calcitonin was normal. He underwent a urology consult and his suprapubic catheter was changed 3 days after treatment with antibiotics. His urine culture was resistant to Levaquin however urology believes his symptoms more were more related to pneumonia and that he would not treat further bacteremia at this time unless he was symptomatic. Zosyn was appropriate to cover urinary and pneumonia. He was given a trial of Myrbetriq 50 mg daily to try to cut down on his bladder spasms and leakage through the urethra. He will be discharged to continue this daily and will follow up with urology on an outpatient basis. He has completed a 7-day course of Zosyn has been hemodynamically stable is at his baseline. His hospital course was also complicated with hypotension at night, this was asymptomatic. We did eliminate his at bedtime dose of Metroprolol which did improve his hypotension. His heart rate and blood pressure should continue to be monitored on an outpatient basis and medication adjustments per outpatient team. He has been eating and drinking his suprapubic catheter draining well, his bowels functioning. He is stable and ready for discharge back to [facility] rehab. His COVID-19 testing was negative. Discharge plan discussed with Dr. Brody who is in agreement Home Meds and New Rx's Prescriptions: New Myrbetriq 50 mg Tablet Extended Release 24 Hr 50 mg PO DAILY Qty: 0 RF: 0 Continued clopidogrel [Plavix] 75 MG tablet 75 mg PO DAILY RF: 0 dicyclomine 10 MG capsule 20 mg PO TID RF: 0 levetiracetam [Keppra] 500 MG tablet 500 mg PO BID RF: 0 metformin [Glucophage] 1,000 MG tablet 500 mg PO BID RF: 0 sennosides [senna] 8.6 MG tablet 1 tab PO BID RF: 0 prazosin 2 MG capsule 2 mg PO .QHS RF: 0 cranberry 400 mg Capsule 425 mg PO BID RF: 0 Lactobacillus acidophilus Capsule 1,000 mmu cells PO BID RF: 0 ProAir RespiClick 90 mcg/actuation Aerosol Powdr Breath Activated 2 inh INHALATION Q6H PRNRF: 0 acetaminophen 325 mg Tablet 650 mg PO Q4H PRN PRNRF: 0 atorvastatin 10 mg Tablet 10 mg PO DAILY RF: 0 gabapentin 800 mg Tablet 1,200 mg PO QHS RF: 0 allopurinol 300 mg Tablet 300 mg PO DAILY RF: 0 albuterol sulfate 0.63 mg/3 mL Solution For Nebulization 0.63 mg INHALATION Q12H RF: 0 polyethylene glycol 3350 [Miralax] 17 gram Powder In Packet 17 g PO DAILY PRNRF: 0 loperamide 2 mg Tablet 2 mg PO Q6H PRNRF: 0 magnesium hydroxide [Milk of Magnesia] 400 mg/5 mL Suspension 30 ml PO DAILY PRN PRNRF: 0 bisacodyl [Dulcolax (bisacodyl)] 10 mg Suppository 10 mg [place] DAILY PRNRF: 0 Lac-Hydrin Five 5 % Lotion 1 applic TOPICAL DAILY RF: 0 lidocaine HCl 2 % Jelly In Applicator 1 applic TOPICAL Q4H PRN PRNRF: 0 simethicone 80 mg Tablet,Chewable 80 mg PO 4-6XD PRNRF: 0 Changed metoprolol tartrate 25 MG tablet 12.5 mg PO DAILY Qty: 0 RF: 0 Discharge Instructions Instructions: Aspiration Pneumonia (GEN), Catheter-associated Urinary Tract Infection (DC) Additional Instructions: Your Lopressor dose has been decreased due to some low blood pressure readings at nighttime. Continue to monitor your blood pressures and heart rate and adjust medication as needed. Stand Alone Forms: Nursing Discharge Form Referrals: Eyal Eason MD [ [facility] STAFF PHYSICIAN] - Activity:: Activity as Tolerated Equipment/Supplies:: No Equipment Needed Diet:: Carb Counting Discharge Orders Discharge Orders: Discharge Order (Routine); Ordered 09/14/19 Ordered By: Salina Gomez DS: Summary Status at Discharge Functional status at discharge: wheelchair bound Overall status at discharge: patient is back to baseline Mental Status: mental status grossly normal Speech and Movement: slurred speech Mood: congruent mood Affect: normal affect Exam Const General: cooperative, healthy appearing, comfortable, no acute distress, frail appearing (elderly male of stated age, long white hair and facial hair) and ill appearing Nutritional Appearance: overweight and thin Orientation: alert, awake and oriented x3 HENMT Head: normal to inspection, normocephalic and atraumatic Mouth: oral mucosae normal Eyes Pupils: PERRL EOM: EOM intact bilaterally Resp Effort & Inspection: normal respiratory effort and able to speak in complete sentences Auscultation: diminished lung sounds Cardio Rate: regular rate Rhythm: regular rhythm GI Inspection: normal to inspection and other (suprapubic catheter in place, draining cloudy urine, site clear) Palpation: soft Auscultation: normal bowel sounds General: other (see GI assessment) Skin General skin exam: no rashes or lesions noted and dry skin Neuro General: patient alert, patient awake, patient oriented x3 and other (left side flacid) Cognition: normal cognition Speech: other (slow to respond but appropriate, slightly slurred) Motor: strength not 5/5 throughout and strength abnormal (left side flacid) Extrem General: no pedal edema Right upper extremity: normal to inspection and full ROM Left upper extremity: ROM limited (flacid, hand contracted) Right lower extremity: normal to inspection and full ROM Left lower extremity: abnormal ROM (flacid, foot drop) Psych Mental Status: mental status grossly normal Speech and Movement: slurred speech Mood: congruent mood Affect: normal affect DS: Data Vitals/I&O Vitals and I&O: Vital Signs Temperature 36.4 C L 09/14/19 08:05 Temperature Source Tympanic 09/14/19 08:05 Pulse 56 L 09/14/19 08:05 Pulse Rhythm Regular 09/14/19 09:13 Respiratory Rate 18 09/14/19 08:05 Respiratory Effort Non-Labored 09/14/19 09:13 Respiratory Depth Normal 09/14/19 09:13 Respiratory Pattern Normal 09/14/19 09:13 Blood Pressure 101/47 L 09/14/19 08:05 Pulse Oximetry 90 L 09/14/19 08:05 Oxygen Delivery Method Nasal Cannula 09/14/19 08:05 Oxygen Flow Rate 1 09/14/19 08:05 Pain Level 0 09/14/19 08:05 Comment 09/13/19 23:23 Intake & Output 09/13/19 09/13/19 09/14/19 11:59 23:59 11:59 Intake Total 950 / 1310 360 / 1310 Output Total 2100 / 2550 450 / 2550 1200 / 1200 Balance -1150 / -1240 -90 / -1240 -1200 / -1200 Weight 65.5 kg 65.4 kg Intake: IV 710 / 710 Oral 240 / 600 360 / 600 Output: Urine 2100 / 2550 450 / 2550 1200 / 1200 Other: Urine Color Yellow Yellow Pale Urine Appearance Clear Clear Clear Urine Odor Normal Normal Comment superpubic, insertion site, dry and intact, no redness, no swelling Stool Size Smear Moderate Stool Characteristics Soft Formed Voiding Methods Indwelling Catheter Indwelling Catheter Data Completed and Pending Labs on day of discharge: Labs from last 24 hours 09/13/19 12:35 COVID-19 PCR Pending Nasopharyn COVID-19 PCR Pending Ref Test Perform Site Pending [facility] Medical History (Updated 09/11/19 @ 13:28 by Cyn Norton NP) Anxiety (Chronic) BPH (benign prostatic hyperplasia) (Chronic) COPD (chronic obstructive pulmonary disease) (Chronic) CVA (cerebral vascular accident) (Chronic) left hemiparesis Depression (Chronic) Diabetes (Chronic) Gout (Chronic) HTN (hypertension) (Chronic) Neuromuscular disorder (Acute) bladder PTSD (post-traumatic stress disorder) (Acute) Seizure (Chronic) PTViridiana MENDOZA RN AT [facility] BEEN 1+ YEAR SINCE ANY SEIZURE ACTIVITY Surgical History S/P carotid endarterectomy (Inactive) S/P hernia repair (Inactive) Social History Smoking/Tobacco Use Status: Former Tobacco Use Alcohol Intake: former Substance use type: does not use and marijuana Details: Last Marijuana use: October 2018. Do you feel safe at home: Yes
[2019-09-14] MEDS: Enoxaparin 40 MG/0.4 ML SYR SC (10:11)
[2019-09-14] MEDS: traMADol 50 MG TAB PO ×2 (10:37→16:53)
[2019-09-14 11:49] VITALS: BP 115/50; PULSE 50; RESP 18; TEMP 35.9; O2SAT 92
[2019-09-14] MEDS: Insulin Aspart 300 UNITS/3 ML PEN SC (11:51)
[2019-09-14 12:13] VITALS: O2SAT 90
[2019-09-14 15:52] VITALS: BP 118/52; PULSE 52; RESP 17; TEMP 36.3; O2SAT 93
[2019-09-14 17:00] VITALS: O2SAT 92
[2019-09-14] MEDS: Simethicone 80 MG CHEW PO (17:31)
--- NOTE | 2019-09-14 17:52 | CMPROGNOTE_ITS ---
- If Service Date Differs Date of service: 09/14/19 Time of Service: 17:53 Care Management Progress Note S/O: Luis Enrique continues to be closely monitored at this time. He was sleeping soundly when CM came to meet with him. Jairo's Covid test result has not come back as of 6pm this evening. CM contacted [facility] about the delay and they agreed to accept him if he can be there by l 9pm. Transport will need to be arranged through [facility] as he will need an ambulance. A: Luis Enrique is a 73 year old male admitted to [facility] on 09/06/19 with UTI/Pneumonia. P: Luis Enrique will return to [facility] when Covid-19 test results are back, if negative. He will transport via [facility]. CM will continue to follow and support discharge planning considerations.
[2019-09-14] MEDS: Normal Saline Flush 10 ML SYR IVP (19:13)
--- NOTE | 2019-09-16 18:33 | PT.INDS ---
Date of service: 09/16/19 PT Notes Visit Reasons: UTI/PNEUMONIA Inpatient Physical Therapy Discharge Summary Dates: 09/16/2019 Dates of Service: 09/08/2019 through 09/13/2019 This is a clinical summary of care provided on the duration of dates listed above. No charge was made in the completion of this documentation. Referring Doctor: Salina Gomez NP PT Orders: PT CONSULT: Eval/Treat Precautions: Fall. Standard. Activity as tolerated. Patient Profile/Admitting Diagnosis: Luis Enrique is a 73-year-old male with past medical history significant for CVA who presented to the ED on 09/06/2019 chief presentation of having trouble waking up and dry heaves. Patient is diagnosed with UTI, PNA, AF, and neurogeninc bladder with referral to skilled PT services for limited mobility level. PMHX: Medical History (Updated 09/06/19 @ 19:44 by Luis Newberry MD) Anxiety (Chronic) BPH (benign prostatic hyperplasia) (Chronic) COPD (chronic obstructive pulmonary disease) (Chronic) CVA (cerebral vascular accident) (Chronic) left hemiparesis Depression (Chronic) Diabetes (Chronic) Gout (Chronic) HTN (hypertension) (Chronic) Neuromuscular disorder (Acute) bladder PTSD (post-traumatic stress disorder) (Acute) Seizure (Chronic) MARSHA MENDOZA AT [facility] BEEN 1+ YEAR SINCE ANY SEIZURE ACTIVITY Surgical History S/P carotid endarterectomy (Inactive) S/P hernia repair (Inactive) Social History/Home Situation: LTC at the [facility] since 2018. Requires assistance with all transfers tasks. Patient states that Vaughn, the PT at the SNF was just starting to work on him to improve his walking. Equipment Owned/DME: Has AFO on the L, diabetic shoes Subjective: NT. See most recent DENTAL FINANCIAL COORDINATOR notes. Objective: General Observation: NT. See most recent DENTAL FINANCIAL COORDINATOR notes. Mental Status: NT. See most recent DENTAL FINANCIAL COORDINATOR notes. Pain: NT. See most recent DENTAL FINANCIAL COORDINATOR notes. ROM: Right Upper Extremity: Shoulder Flexion allows up to 90 degrees. Shoulder abduction allows up to 90 degrees. Elbow flexion WFL. Wrist flexion WFL. Opening and closing of hand WFL. Left Upper Extremity: Flaccid L UE. Hand and finger flexors tight due to contracture. No active opening of hand seen. Right Lower Extremity: Hip flexion allows up to 20 degrees in supine. Hip abduction allows up to 10 degrees. Knee flexion allows up to 30 degrees. Ankle dorsiflexion about 20 degrees from fully platarflexed position. Ankle plantarflexion 20 degrees. Left Lower Extremity: Grossly 1/5 with L equinovarus deformity seen Strength: Right Upper Extremity: Shoulder flexors 3-/5. Shoulder abductors 3-/5. Elbow flexors 3/5. Elbow extensors 3/5. Tip Puncher strong. Left Upper Extremity: 0/5 on L UE. Right Lower Extremity: Hip flexors 3-/5. Hip abductors 3-/5. Knee flexors 3-/5. Knee extensors 3-/5. Ankle dorsiflexors 2-/5. Ankle plantarflexors 2-/5. Left Lower Extremity: Grossly 1/5 on L LE Sensation: Intact as to pain and pressure on bilateral lower extremities. Bed Mobility/Transfers: Supine to sit CGA Sit to supine moderate assist Sit to stand from bed minimal assist of 2 Stand to sit at bedside minimal assist of 2 Gait: Non-ambulatory. Stand pivot-transfers only. Patient will require his L AFO and diabetic shoes for all transfer task performance. Balance: Static Sitting: Fair Dynamic Sitting: Fair Static Standing: Fair Dynamic Standing: Fair Assessment: Luis Enrique continues to present with significant mobility decline requiring extensive assist of 2 people and minimal assist of a third person for all mobility ADL performance. His mobility dependence was complicated by not having his L AFO and diabetic shoes, making the L hemiplegic ankle highly unstable and painful duirng transfers. Patient continues to present with clinical signs and symptoms consistent with current/admitting diagnoses that have resulted to mobility limitations, gait instability, generalized weakness, and impairment of motor control as demonstrated by the following impairment level findings: 1. Decreased strength to B UE/LE major muscle groups due to hemiplegia 2. Impaired sitting/standing balance 3. Impaired activity tolerance Impairments are doing to contribute to the following functional limitations: 1. Dependent bed mobility skills 2. Increased dependence with transfers 3. Inability to safely ambulate without assistive device and physical assistance 4. Increase completion time for mobility ADL performance 5. Increased fall risk 6. Inability to negotiate steps alone safely Goals: Goals X1 week 1. Supine-Sit minimal assist of 2 MET 2. Sit-Supine minimal assist of 2 NOT MET 3. Sit-Stand minimal assist of 2 NOT MET 4. Stand-Sit minimal assist of 2 NOT MET 5. Bed-Chair minimal assist of 2 NOT MET 6. Chair-Bed minimal assist of 2 NOT MET DISCHARGE RECOMMENDATIONS: Return to SNF when medically cleared. Requires L AFO and diabetic shoes to be collected from SNF and brought into here to maximize safety of transfer tasks. TREATMENT CODE/TIME: IN Thank you for the opportunity to participate in the care of this patient. Oksana Mc PT, DPT, CLT [facility] [place], [place]
[2020-01-30 10:22] LABS: COVID-19 RT-PCR Result Not Detected ((See Note))
== END 2019-09-14 19:28 | disposition skilled nursing facility (03) | DRG 194 ==
LOC: ER 19:02 → MS 19:53
PROVIDERS: Nurse Practitioner Acute Care; Nurse Practitioner Family; Physician Assistant; Admitting Provider Family Medicine; Emergency Provider Physician Assistant; PCP Family Medicine; Visit Provider Family Medicine
DX: J18.9 Pneumonia, unspecified organism (principal); N39.0 Urinary tract infection, site not specified; I48.92 Unspecified atrial flutter; I69.354 Hemiplegia and hemiparesis following cerebral infarction affecting left non-dominant side; J44.0 Chronic obstructive pulmonary disease with (acute) lower respiratory infection; G40.909 Epilepsy, unspecified, not intractable, without status epilepticus; I10 Essential (primary) hypertension; F41.9 Anxiety disorder, unspecified; N31.9 Neuromuscular dysfunction of bladder, unspecified; Z93.51 Cutaneous-vesicostomy status; G25.0 Essential tremor; I48.91 Unspecified atrial fibrillation; N40.0 Benign prostatic hyperplasia without lower urinary tract symptoms; E11.9 Type 2 diabetes mellitus without complications; M10.9 Gout, unspecified; F43.10 Post-traumatic stress disorder, unspecified; R09.02 Hypoxemia; Z66 Do not resuscitate; E86.0 Dehydration; Z87.891 Personal history of nicotine dependence; Z22.322 Carrier or suspected carrier of Methicillin resistant Staphylococcus aureus; E83.42 Hypomagnesemia; I95.89 Other hypotension; Z11.59 Encounter for screening for other viral diseases
CPT/HCPCS: 51705; 36415; 80048; 80053; 84145; 87040; 87077; 87081; 92610; 93005; 96361; 96365; 96367; 96374; 96375; 97110; 97163; 97530; 99221; 99222; 99233; 99239; 99252; 99285; J1650; U0003; 71045; 81003; 81015; 83605; 83735; 84484; 85025; 87070; 87086; 87186; 87205; 93010; 94667; J0131; J0696; J1956; J2405; J2543; J3475

== ENCOUNTER 2019-09-19 12:24 | Outpatient (REF) | payer MEDICARE, MEDICAID, SELFPAY ==
[2019-09-20 19:58] LABS: COVID-19 RT-PCR Result Not Detected ((See Note))
== END 2019-09-19 12:44 ==
LOC: LBN 12:24
PROVIDERS: PCP Family Medicine; Visit Provider Nurse Practitioner Adult Health
DX: Z03.818 Encounter for observation for suspected exposure to other biological agents ruled out (principal)
CPT/HCPCS: U0003

== ENCOUNTER 2019-09-21 15:06 | Outpatient (REF) | payer MEDICARE, MEDICAID, SELFPAY ==
[2019-09-21 15:59] LABS: Bilirubin Negative (Negative); Blood Small (Negative); Clarity Turbid (Clear); Glucose Negative (Negative); Ketones Negative (Negative); Leukocyte Esterase Small (Negative); Nitrite Positive (Negative); Specific Gravity >= 1.030 (1.005-1.025); Urobilinogen 0.2 EU/dL (Up TO 0.2); pH 5.5 (5-8)
[2019-09-21 16:13] LABS: Bacteria Moderate HPF (Negative); C & S Indicated? C&S Done As Ordered; Casts Negative LPF (Negative); Crystals Moderate Amorphous HPF (Negative); Epithelial Cells Few HPF (Negative); Mucus Negative (Negative)
== END 2019-09-21 15:26 ==
LOC: LBN 15:06
PROVIDERS: PCP Family Medicine; Visit Provider Nurse Practitioner Adult Health
DX: N39.0 Urinary tract infection, site not specified (principal)
CPT/HCPCS: 87077; 81003; 81015; 87086; 87186

== ENCOUNTER 2019-09-26 15:46 | Outpatient (REF) | payer MEDICARE, MEDICAID, SELFPAY ==
[2019-09-27 02:29] LABS: COVID-19 RT-PCR UVMMC Result Negative (Negative)
== END 2019-09-26 16:06 ==
LOC: LBN 15:46
PROVIDERS: PCP Family Medicine; Visit Provider Nurse Practitioner Adult Health
DX: Z11.59 Encounter for screening for other viral diseases (principal)
CPT/HCPCS: U0003

== ENCOUNTER → 2019-11-04 13:43 | Outpatient (BNVA) | payer MEDICARE, MEDICAID, SELFPAY | PROVIDERS: PCP Family Medicine; Referring Provider Family Medicine; Visit Provider Urology | DX: N31.8 Other neuromuscular dysfunction of bladder (principal); I10 Essential (primary) hypertension; E11.9 Type 2 diabetes mellitus without complications; I63.89 Other cerebral infarction; J44.9 Chronic obstructive pulmonary disease, unspecified; N40.0 Benign prostatic hyperplasia without lower urinary tract symptoms | CPT/HCPCS: 51705; 99213 ==

== ENCOUNTER 2019-11-17 01:37 | Outpatient (CLI) | payer MEDICARE, MEDICAID, SELFPAY ==
--- NOTE | 2019-11-17 09:18 | DI.CT_ITS ---
EXAM: CT ABDOMEN PELVIS WO CLINICAL HISTORY: r/o bladder stone, neurogenic bladder,n31.9. TECHNIQUE: Imaging Protocol: Axial computed tomography images with coronal and sagittal reformatted images were created and reviewed. COMPARISON: CR,XR XR PORTABLE CHEST AP from 09/08/2019 FINDINGS: There is patient motion artifact present. ABDOMEN: Lung Bases: Right basilar infiltrate. Liver: Normal density. No measurable mass. Gallbladder and biliary tract: No radiodense calculus or biliary ductal dilation. Pancreas: Normal density, no abnormal calcifications or inflammatory process. Spleen: Normal. Kidneys: Normal size, contour and axis.There is a large calculus in the lower pole of the left kidney with a staghorn appearance. It measures 2.0 cm in length no hydronephrosis or ureteral calculus is identified. No masses seen. Adrenal glands: No mass is seen. Lymph nodes: Within normal limits. Abdominal Aorta: Abdominal portion non-dilated. Atherosclerosis. PELVIS: Bladder:There is a suprapubic catheter in place. Air is seen within the urinary bladder likely secon bernardino to the catheterization. The urinary bladder is incompletely distended. The wall of the urinary bladder is thickened which may in part be due to the underdistention. Bowel: No obstruction or bowel wall thickening. No evidence of appendicitis. Colonic diverticulosis but no evidence of acute diverticulitis. Moderate amount of retained stool throughout the colon. Peritoneal cavity: No ascites, collection or mesenteric inflammatory response Reproductive organs: Prostatic enlargement. Bones: Degenerative changes are seen in the spine. There are old left rib fractures. There is a mot tled appearance of the L3, L4 and L5 vertebral bodies. The endplates of these vertebral bodies are i ll-defined. Soft Tissues: Within normal limits. IMPRESSION: 1. Left nephrolithiasis. No hydronephrosis. 2. No evidence of a bladder stone. Suprapubic catheter in place. 3. Sclerotic mottled appearance of the L3-L4 and L5 vertebral bodies with disruption of the cortices of the endplates. This may all be due to degenerative changes. Infection or neoplasm should also be considered. Please correlate clinically. MRI may be considered for further evaluation. 4. Colonic diverticulosis but no evidence of acute diverticulitis. 5. Right basilar infiltrate. Pneumonia cannot be excluded. Please correlate clinically. RADIATION DOSE DELIVERED: 1,782.38mGy.cm Total DLP DATA REPOSITORY: All CT scans at this facility are submitted to the National Radiology Data Registry (NRDR) Dose Index Registry (DIR) with the [employer] (ACR). RADIATION OPTIMIZATION: All CT scans at this facility use at least one of these dose optimization te chniques: automated exposure control; mA and/or kV adjustment per patient size (includes targeted exa ms where dose is matched to clinical indication); or iterative reconstruction.
== END 2019-11-17 01:57 ==
PROVIDERS: PCP Family Medicine; Visit Provider Urology
DX: N20.0 Calculus of kidney (principal); K57.30 Diverticulosis of large intestine without perforation or abscess without bleeding; R91.8 Other nonspecific abnormal finding of lung field; N31.9 Neuromuscular dysfunction of bladder, unspecified
CPT/HCPCS: 74176

== ENCOUNTER 2019-11-26 14:26 | Outpatient (REF) | payer MEDICARE, MEDICAID, SELFPAY | END 2019-11-26 14:46 | LOC: LBN 14:26 | PROVIDERS: PCP Family Medicine; Visit Provider Nurse Practitioner Adult Health | DX: N39.0 Urinary tract infection, site not specified (principal) | CPT/HCPCS: 87077; 87086; 87186 ==

== ENCOUNTER 2020-02-14 09:34 | Outpatient (CLI) | payer MEDICARE, MEDICAID, SELFPAY ==
--- NOTE | 2020-02-14 11:22 | DI.RAD_ITS ---
EXAM: XR CHEST 2V PA LATERAL CLINICAL HISTORY: FEVER, POOR OXYGEN LEVELS, ? PNEUMONIA TECHNIQUE: 2D digital imaging was performed. COMPARISON: CR,XR XR PORTABLE CHEST AP from 12/09/2018 CR,XR XR CHEST 2V PA LATERAL from 04/24/2019 CR,XR XR CHEST 2V PA LATERAL from 04/24/2019 CR,XR XR PORTABLE CHEST AP from 09/08/2019 FINDINGS: MEDIASTINUM: Normal. HEART: Normal. PULMONARY VASCULATURE: Normal. LUNGS: There are bilateral basilar infiltrates. PLEURAL SPACE: There is a small left pleural effusion. BONE:Within normal limits for the patient's age. There are old left rib fractures. OTHER FINDINGS:Normal. IMPRESSION: Bilateral basilar infiltrates suspicious for pneumonia. A follow-up chest x-ray is recommended to do cument complete clearing of the infiltrates and to exclude an underlying mass. DATA REPOSITORY: RADIATION DOSE DELIVERED:
== END 2020-02-14 09:54 ==
PROVIDERS: PCP Family Medicine; Visit Provider Family Medicine
DX: R91.8 Other nonspecific abnormal finding of lung field (principal); R50.9 Fever, unspecified; R09.02 Hypoxemia
CPT/HCPCS: 71046

== ENCOUNTER 2020-03-21 18:34 | Outpatient (REF) | payer MEDICARE, MEDICAID, SELFPAY ==
[2020-03-21 15:46] LABS: Bilirubin Negative (Negative); Blood Moderate (Negative); Clarity Cloudy (Clear); Glucose Negative (Negative); Ketones Negative (Negative); Leukocyte Esterase Large (Negative); Nitrite Positive (Negative); Specific Gravity >= 1.030 (1.005-1.025); Urobilinogen 0.2 EU/dL (Up TO 0.2); pH 5.5 (5-8)
[2020-03-21 15:54] LABS: C & S Indicated? C&S Done As Ordered; WBC >50 HPF (0-5)
== END 2020-03-21 18:54 ==
LOC: LBN 18:34
PROVIDERS: PCP Family Medicine; Visit Provider Family Medicine
DX: R41.0 Disorientation, unspecified (principal)
CPT/HCPCS: 87077; 81003; 81015; 87086; 87186

== ENCOUNTER 2020-06-08 03:55 | Outpatient (CLI) | payer MEDICARE, MEDICAID, SELFPAY ==
--- NOTE | 2020-06-08 10:23 | DI.RAD_ITS ---
EXAM: XR CHEST 2V PA LATERAL CLINICAL HISTORY: F/U INFILTRATES, PNEUMONIA TECHNIQUE: 2D digital imaging was performed. COMPARISON: CR XR CHEST 2V PA LATERAL from 02/14/2020 FINDINGS: MEDIASTINUM: Normal. HEART: Normal. PULMONARY VASCULATURE: Normal. LUNGS: The right basilar infiltrate has resolved. There is a small infiltrate in the left lung base. This may represent residual infiltrate or scarring versus new infiltrate. Please correlate clinica lly. PLEURAL SPACE: No pleural effusion or pneumothorax. BONE:Old healed left rib fractures are noted. OTHER FINDINGS:Normal. IMPRESSION: Persistent small left basilar infiltrate. This may represent residual infiltrate or scarring versus new infiltrate. Please correlate clinically. DATA REPOSITORY: RADIATION DOSE DELIVERED:
== END 2020-06-08 04:15 ==
PROVIDERS: PCP Family Medicine; Visit Provider Family Medicine
DX: J98.4 Other disorders of lung (principal); R91.8 Other nonspecific abnormal finding of lung field
CPT/HCPCS: 71046

== ENCOUNTER 2020-07-02 01:54 | Outpatient (CLI) | payer MEDICARE, MEDICAID, SELFPAY ==
--- NOTE | 2020-07-02 | DI.RAD_ITS ---
Exam(s) XR CHEST 2V PA LATERAL EXAM: XR CHEST 2V PA LATERAL CLINICAL HISTORY: DYSPHAGIA, R13.10F/U ABNL FINDINGS. TECHNIQUE: 2D digital imaging was performed. COMPARISON: CR XR CHEST 2V PA LATERAL from 06/08/2020 FINDINGS: Heart size is normal. The mediastinum is not widened. COPD findings again noted. Multiple healed left-sided rib fractures are again noted. Infiltrate in the right lower lung field appears unchanged. Mild increased markings in the right infrahilar region also again noted. No pleural effusions. No pneumothorax. IMPRESSION: Persistent bilateral infiltrates, left larger than right. Healed left-sided rib fractures. No pneum othorax nor pleural effusions. If clinically indicated MRI may reach recommended here. DATA REPOSITORY: RADIATION DOSE DELIVERED:
== END 2020-07-02 02:14 ==
PROVIDERS: PCP Family Medicine; Visit Provider Family Medicine
DX: R13.10 Dysphagia, unspecified (principal); J44.9 Chronic obstructive pulmonary disease, unspecified; R91.8 Other nonspecific abnormal finding of lung field
CPT/HCPCS: 71046

== ENCOUNTER 2020-07-09 02:16 | Outpatient (CLI) | payer MEDICARE, MEDICAID, SELFPAY ==
--- NOTE | 2020-07-09 14:31 | ST.MBS ---
Modified Barium Swallow Date of service: 07/09/20 Study Findings: Videofluoroscopic Swallowing Evaluation / Modified Barium Swallow Study (VFSE/MBSS) Speech Language Pathology Report HPI: Patient is a 74-year-old male referred for videofluoroscopic swallow study given history of dysphagia symptoms, pneumonia, and current modified diet textures in his assisted living/SNF environment, i.e. 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 side Dysphagia, oropharyngeal phase Primary generalized osteoarthritis Peripheral vascular disease CVA Cognitive communication deficit On supplemental oxygen Anxiety disorder PTSD IBS with constipation Previous Imaging: N/A SUBJECTIVE: Patient reports he receives modified solid textures as well as a combination of nectar thickened liquids and thin liquids during mealtimes and or at bedside; treating MASTER AUTOMOTIVE TECHNICIAN also present during evaluation today, who reports patient does tend to demonstrate rapid rate of intake unless cued during mealtimes, and is typically seated upright in his wheelchair during meals, however will occasionally be provided meals in bed, when his posture is likely to decline over time/throughout the meal. Patient is aware of previous dysphagia history and recommendations from previous MASTER AUTOMOTIVE TECHNICIAN, including avoiding vocalizations/talking during p.o. intake; patient was able to follow verbal instructions adequately throughout evaluation today, and was able to demonstrate comprehension of results from study with treating MASTER AUTOMOTIVE TECHNICIAN also present. OBJECTIVE: Videofluoroscopic Swallow Evaluation (VFSE/MBSS) was conducted in the lateral and [id number] projections by Speech-Language Pathologist, in collaboration with Radiologist, to evaluate oropharyngeal swallow function. Anatomic view under fluoroscopy: WFL, forward leaning posture throughout study PO barium contrast trials: Oral barium water soluble contrast was administered as follows: IDDSI Level 0 Varibar thin liquid (40% w/v) IDDSI Level 2 Varibar nectar thick/mildly thick liquid (40% w/v) IDDSI Level 3 Varibar thin honey/liquidised/moderately-thick (40% w/v) IDDSI Level 4 Varibar pudding/pureed/extremely thick (40% w/v) IDDSI Level 7 Regular Solid: 1/2 conor cracker coated in 3 mL Varibar pudding PHYSIOLOGIC FINDINGS Oral Phase 1 Lip Closure: 1-Interlabial escape; no progression to anterior lip 2 Tongue Control: 2- Posterior escape of less than half of bolus 3 Bolus Preparation/Mastication: 1- Slowed/prolonged chewing/mashing with complete recollection 4 Bolus Transport/Lingual Motion: 1- Delayed initiation of tongue motion 5 Oral residue: 1- Trace residue lining oral structures Location: palate, tongue 6 Initiation of pharyngeal swallow: 3- Bolus head in pyriform sinus Pharyngeal Phase 7 Velar Elevation: 0- No bolus between soft palate and pharyngeal wall 8 Laryngeal Elevation: 2- Minimal superior movement of thyroid cartilage with minimal approximation of arytenoids to epiglottic petiole 9 Anterior Hyoid Excursion: 1- Partial anterior movement 10 Epiglottic Movement: 1- Partial inversion 11 Laryngeal Vestibule Closure: 2- None; wide column of air/contrast in laryngeal vestibule Penetration occurs both prior to and during initial swallow onset from current bolus 12 Pharyngeal Stripping Wave: 1- Present; diminished 13 Pharyngeal Contraction: DNT; lack of AP view 14 PES/UES Openin- Complete distension and complete duration; no obstruction of flow 15 Tongue Base Retraction: 2- Narrow column of contrast between tongue base and posterior pharyngeal wall 16 Pharyngeal residue: 2- Collection of residue within or on pharyngeal structures Location: Valleculae, Pharyngeal wall, aryepiglottic folds [place] Pharyngeal Residue Severity Rating Scale (YPRS) (Daniel et al, 2015) Vallecula Residue Severity IV Moderate 25-50% Epiglottic ligament covered Pyriform Sinus Residue Severity I None 0% No residue Esophageal Phase 17 Esophageal Clearance Upright Position: DNT; lack of AP view NOTE: This study was performed for interpretation only of the oropharyngeal and pharyngoesophageal domains of swallowing. It is not intended to diagnose any other radiologic abnormalities or substitute for a formal esophagram study. Overall 8-Point Penetration-Aspiration Scale (PAS) (Rosenbek, et al, 1996) 1 - No material enters the airway. 2 - Material enters the airway, remains above the vocal folds, and is ejected from the airway. 3 - Material enters the airway, remains above the vocal folds, and is not ejected from the airway. 4 - Material enters the airway, contacts the vocal folds, and is ejected from the airway. 5 - Material enters the airway, contacts the vocal folds, and is not ejected from the airway. 6 - Material enters the airway, passes below the vocal folds, and is ejected into the larynx or out of the airway. 7 - Material enters the airway, passes below the vocal folds, and is not ejected from the trachea despite effort. 8 - Material enters the airway, passes below the vocal folds, and no effort is made to eject. Clinical Indicator(s) of Prandial/Postprandial Aspiration: Throat Clear (intermittent) Wet vocal quality Trialed Compensatory Swallow Strategies & Outcome: Postures Chin Tuck Posture - (volitional) unsuccessful, resulted in aspiration with both thin and mildly thickened/nectar liquids Maneuvers 3-second Preparatory Set - *successful Cued Cough - unsuccessful Secondary saliva swallow- unsuccessful Supraglottic Swallow - DNT Bolus Modifications Delivery/Alternating Consistencies - Wash with thin, *successful / Wash with [place]/Mildly thick, unsuccessful Reduced Volume - *successful Reduced Rate of Intake - *successful Increased Viscosity - *somewhat successful; please see Impressions section Dysphagia Outcome and Severity Scale (DEB) LEVEL 3 - Full PO: modified diet and/or independence - Moderate dysphagia; Total assist, supervision, or strategies 2 or more diet consistencies restricted IMPRESSIONS: Swallow safety is impaired; swallow efficiency is impaired. Moderate oropharyngeal dysphagia, likely [id number]; dysphagia presentation likely due to history of CVA, generalized muscle weakness, suspected reduced swallow-breath coordination in context of COPD/requirement of O2 via NC; physiologic impairments primarily characterized by reduced tongue control and reduced initiation of pharyngeal swallow (bolus head at pyriform sinus), which was noted to increase risk of aspiration prior to swallow onset with less viscous material; reduced laryngeal elevation, absent laryngeal vestibule closure, and reduced tongue base retraction are also contributing factors which resulted in collection of residue within or on pharyngeal structures (ie, Valleculae, Pharyngeal wall, Aryepiglottic folds) for more viscous textures. Aspiration prior to swallow onset was noted more frequently with nectar/mildly thickened liquids and with larger volumes (ie >10mL); aspiration of thin liquids was also noted prior to swallow onset with larger volumes, however amount of aspirated thin liquid was significantly less relative to aspirated nectar/mildly thickened liquids; despite cues, patient was unable to clear more viscous consistency (ie, nectar/mildly thickened liquid) across trials, but was able to clear aspirated thin liquids more easily; aspiration is complicated by suspected reduced laryngeal sensation and reduced cough strength. Patient appears to be at moderate risk for potential recurrent aspiration PNA, pulmonary compromise and low for malnutrition and/or dehydration. Diet modification is indicated per continued discussion with patient and care team with recommendations as outlined below. Swallow prognosis is good-fair given COPD, cognitive communication deficit and pending patient/caregiver training in risk management as outlined. Patient appears to be a good candidate for behavioral swallow rehabilitation and training/treatment with MASTER AUTOMOTIVE TECHNICIAN. PLAN: Diet recommendation: IDDSI Level(s) Please see further details at www.iddsi.org Solids *6 Soft and bite sized Liquids *0-thin via controlled volume and rate modifications (eg, Provale Cup) NOTE: Mixed consistencies (ie, liquid+solid, such as cereal in milk, thin soups with pieces/chunks, etc) should be provided with caution and supervision given delayed pharyngeal swallow initiation+reduced laryngeal sensation+reduced airway clearance; patient may benefit from added thickening agent to IDDSI Level 3 (moderately thick) for mixed consistencies to promote bolus cohesion Diet texture modification is per patient's preference; please adjust diet textures at patient's discretion & collaboration with care team. Risk Management: Reduced rate of intake Small bites, approx [id number] Small sips, approx 5-10 mL Allow RR Recovery prior to subsequent bite/sip Encourage avoidance of straws Encourage reducing talking/vocalizing during po intake given effected swallow-breath coordination Alternate solids/liquids as able Control risk factors for aspiration pneumonia via (a) thorough oral hygiene & (b) maintaining physical mobility as tolerated Upright for all PO intake If patient must consume food/liquid while upright in bed (vs seated in wheelchair), recommend supervision+assist for frequent postural readjustment to upright position Specialist referrals: N/A Ancillary tests: N/A Therapy: Recommend continued treatment with MASTER AUTOMOTIVE TECHNICIAN to review results of today's exam and develop treatment plan as appropriate. May consider the following: - Trial of 5cc or 10cc Provale Cup for controlling volume/rate of thin liquids - Staff/caregiver training - Expiratory Muscle Strength Training / RMST; If patient's MD is in agreement, patient may benefit from structured/progressivized cough strengthening program with use of a pressure threshold device, outside of training in compensatory strategies during mealtimes (Medicare does currently cover both the EMST Lite-75 and EMST-150 through [employer] as DME which may be an option) - Training in direct pharyngeal swallow exercise and/or protective maneuvers (eg, Chin tuck against resistance, Shaker, Vocal fold adduction; effortful swallow, supraglottic or super supraglottic swallow per patient tolerance / 02 Talia simpson) Goal: TBD pending patient/caregiver interview Follow-up exam: N/A Thank you for allowing me to take part in this patient's care. Please feel free to contact me with any questions/concerns. Gabi Calderon MA CCC-MASTER AUTOMOTIVE TECHNICIAN Speech Language Pathologist [phone] Coding CPT Codes MOTION FLUOROSCOPY/SWALLOW - [id number] ([id number])
--- NOTE | 2020-07-09 15:10 | DI.RAD_ITS ---
Exam(s) RF MODIFIED SPEECH BA SWALLOW TECHNIQUE: Modified barium swallow was performed in conjunction with speech pathology. CONTRAST MATERIAL: Oral barium Oral water soluble contrast was administered. COMPARISON: No exams were available for comparison FINDINGS: There was significant aspiration evident on this study. See speech pathologist's report. IMPRESSION: Aspiration evident RADIATION DOSE DELIVERED: Laurar= mGy
[2020-07-09] MEDS: Barium Sulfate Oral Paste 40% W/V 230 ML TUBE PO (15:27)
[2020-07-09] MEDS: Barium Sulfate 40% W/V 1500 CPS 250 ML BTL PO (15:28)
[2020-07-09] MEDS: Barium Sulfate 81% w/w for Oral Suspension 148 GM BTL PO (15:29)
[2020-07-09] MEDS: Barium Sulfate 40% W/V 240 ML BTL PO (15:30)
== END 2020-07-09 02:36 ==
PROVIDERS: PCP Family Medicine; Visit Provider Speech-Language Pathologist
DX: R13.12 Dysphagia, oropharyngeal phase (principal); Z86.73 Personal history of transient ischemic attack (TIA), and cerebral infarction without residual deficits; J44.9 Chronic obstructive pulmonary disease, unspecified; Z99.81 Dependence on supplemental oxygen
CPT/HCPCS: 92611; 74221

== ENCOUNTER 2020-07-15 04:46 | Outpatient (REF) | payer MEDICARE, MEDICAID, SELFPAY ==
[2020-07-15 06:51] LABS: Bilirubin Negative (Negative); Blood Trace-intact (Negative); Clarity Cloudy (Clear); Glucose Negative (Negative); Ketones Negative (Negative); Leukocyte Esterase Moderate (Negative); Nitrite Positive (Negative); Specific Gravity 1.025 (1.005-1.025); Urobilinogen 0.2 EU/dL (Up TO 0.2)
[2020-07-15 06:57] LABS: Bacteria Moderate HPF (Negative); C & S Indicated? C&S Done As Ordered; Casts Negative LPF (Negative); Crystals Negative HPF (Negative); Epithelial Cells Rare HPF (Negative); Mucus Negative (Negative); RBC 0-2 HPF (0-2); WBC >50 HPF (0-5)
== END 2020-07-15 04:47 | disposition home or self-care (01) ==
LOC: LBN 04:46
PROVIDERS: PCP Family Medicine; Visit Provider Family Medicine
DX: R82.998 Other abnormal findings in urine (principal); T83.511A Infection and inflammatory reaction due to indwelling urethral catheter, initial encounter
CPT/HCPCS: 87077; 81003; 81015; 87070; 87086; 87186; 87205

== ENCOUNTER 2020-08-17 06:41 | Outpatient (REF) | payer MEDICARE, MEDICAID, SELFPAY ==
[2020-08-17 07:29] LABS: Bilirubin Small (Negative); Blood Large (Negative); Clarity Cloudy (Clear); Glucose Negative (Negative); Ketones 15 mg/dL (Negative); Leukocyte Esterase Small (Negative); Nitrite Positive (Negative); Specific Gravity >= 1.030 (1.005-1.025); Urobilinogen 0.2 EU/dL (Up TO 0.2)
[2020-08-17 09:09] LABS: Bacteria Many HPF (Negative); Crystals Many Amorphous HPF (Negative); Epithelial Cells Few HPF (Negative); Other Cells Negative (Negative); RBC >50 HPF (0-2)
[2020-08-17 09:10] LABS: C & S Indicated? C&S Done As Ordered; Casts Negative LPF (Negative); Mucus Negative (Negative)
== END 2020-08-17 06:42 | disposition home or self-care (01) ==
LOC: LBN 06:41
PROVIDERS: PCP Family Medicine; Visit Provider Family Medicine
DX: N39.0 Urinary tract infection, site not specified (principal)
CPT/HCPCS: 81003; 81015; 87086

== ENCOUNTER 2020-08-20 17:23 | Outpatient (REF) | payer MEDICARE, MEDICAID, SELFPAY | END 2020-08-20 17:24 | disposition home or self-care (01) | LOC: LBN 17:23 | PROVIDERS: PCP Family Medicine; Visit Provider Family Medicine | DX: E11.9 Type 2 diabetes mellitus without complications (principal); J44.1 Chronic obstructive pulmonary disease with (acute) exacerbation; R82.998 Other abnormal findings in urine | CPT/HCPCS: 87077; 87086; 87186 ==

== ENCOUNTER 2020-09-01 17:23 | Outpatient (REF) | payer MEDICARE, MEDICAID, SELFPAY ==
[2020-09-01 18:18] LABS: Bilirubin Negative (Negative); Blood Moderate (Negative); Clarity Cloudy (Clear); Glucose Negative (Negative); Ketones Trace mg/dL (Negative); Leukocyte Esterase Large (Negative); Nitrite Positive (Negative); Specific Gravity >= 1.030 (1.005-1.025)
[2020-09-01 18:27] LABS: WBC >50 HPF (0-5)
[2020-09-01 18:28] LABS: C & S Indicated? C&S Done As Ordered
== END 2020-09-01 17:24 | disposition home or self-care (01) ==
LOC: LBN 17:23
PROVIDERS: PCP Family Medicine; Visit Provider Family Medicine
DX: R30.0 Dysuria (principal); R30.9 Painful micturition, unspecified
CPT/HCPCS: 87077; 81003; 81015; 87086; 87186

== ENCOUNTER → 2020-09-19 14:10 | Outpatient (BNVA) | payer MEDICARE, MEDICAID, SELFPAY | PROVIDERS: PCP Family Medicine; Referring Provider Family Medicine; Visit Provider Nurse Practitioner Gerontology | DX: N31.9 Neuromuscular dysfunction of bladder, unspecified (principal) | CPT/HCPCS: 99214 ==

== ENCOUNTER 2020-10-17 14:34 | Outpatient (CLI) | payer MEDICARE, MEDICAID, SELFPAY ==
--- NOTE | 2020-10-17 | DI.RAD_ITS ---
Exam(s) XR CHEST 2V PA LATERAL EXAM: XR CHEST 2V PA LATERAL CLINICAL HISTORY: ASPIRATION. TECHNIQUE: 2D digital imaging was performed. COMPARISON: CR XR CHEST 2V PA LATERAL from 07/02/2020 FINDINGS: Heart size is normal. The mediastinum is not widened. Left lung is clear. There is some infiltrate in the right lower lobe posterior basal segment. No ob vious pleural effusions. IMPRESSION: Right lower lobe infiltrate DATA REPOSITORY: RADIATION DOSE DELIVERED:
== END 2020-10-17 14:54 ==
PROVIDERS: PCP Family Medicine; Visit Provider Nurse Practitioner Family
DX: R91.8 Other nonspecific abnormal finding of lung field (principal)
CPT/HCPCS: 71046

== ENCOUNTER 2020-10-19 15:34 | Outpatient (REF) | payer MEDICARE, MEDICAID, SELFPAY | END 2020-10-20 15:35 | disposition home or self-care (01) | LOC: LBN 15:34 | PROVIDERS: PCP Family Medicine; Visit Provider Nurse Practitioner Family | DX: Z43.6 Encounter for attention to other artificial openings of urinary tract (principal); B96.5 Pseudomonas (aeruginosa) (mallei) (pseudomallei) as the cause of diseases classified elsewhere | CPT/HCPCS: 87077; 87070; 87186; 87205 ==

== ENCOUNTER 2020-10-30 22:07 | Outpatient (REF) | payer MEDICARE, MEDICAID, SELFPAY | END 2020-10-30 22:08 | disposition home or self-care (01) | LOC: LBN 22:07 | PROVIDERS: PCP Family Medicine; Visit Provider Nurse Practitioner Family | DX: R30.9 Painful micturition, unspecified (principal) | CPT/HCPCS: 87077; 87086; 87186 ==

== ENCOUNTER 2020-11-17 23:30 | Outpatient (REF) | payer MEDICARE, MEDICAID, SELFPAY ==
[2020-11-18 00:37] LABS: C Diff PCR Positive (Negative)
== END 2020-11-17 23:31 | disposition home or self-care (01) ==
LOC: LBN 23:30
PROVIDERS: PCP Family Medicine; Visit Provider Family Medicine
DX: J44.1 Chronic obstructive pulmonary disease with (acute) exacerbation (principal)
CPT/HCPCS: 87493